=== PATIENT | male | born 1995 | race Caucasian/White ===

== ENCOUNTER → 2019-01-29 07:54 | Outpatient (CLI) | payer OTHER, SELFPAY ==
[2019-01-08 10:47] VITALS: BMI 24.2
--- NOTE | 2019-01-29 07:56 | ECHOD_ITS ---
Reason For Study: DYSPNEA/SOB Procedure This was a 2D Doppler, Color Flow transthoracic echocardiogram. Exam performed in department. Left Ventricle Normal size and thickness. Left ventricular systolic function is normal. No evidence for diastolic dysfunction. The estimated ejection fraction is 60 %. Right Ventricle Normal RV size. Normal systolic function. Atria Normal left atrium. Normal right atrium. No doppler evidence for ASD. Mitral Valve There is no mitral valve stenosis. No mitral valve insufficiency. Tricuspid Valve There is no tricuspid stenosis. Unable to estimate RV systolic pressure due to insufficient tricuspid regurgitant envelope. Trivial eccentric tricuspid valve insufficiency. Aortic Valve Trisinus/trileaflet aortic valve. There is no aortic stenosis. No aortic valve insufficiency. Pulmonic Valve There is no pulmonic valvular stenosis. No pulmonic valve insufficiency. Great Vessels Normal aortic root. Pericardium/Pleural No pericardial effusion. MMode/2D Measurements & Calculations LVIDd: 5.0 cm IVSd: 0.69 cm Ao root diam: 3.1 cm LVIDs: 3.5 cm LVPWd: 0.68 cm RVDd: 4.0 cm FS: 30.8 % LAV(MOD-bp): 33.5 ml LVAd ap4: 37.4 cm2 SV(MOD-sp4): 75.3 ml LAV(MOD-bp) Indexed: 17.8 ml/m2 EDV(MOD-sp4): 127.4 ml LAV(MOD-sp2): 49.2 ml EDV(sp4-el): 130.7 ml LAV(MOD-sp4): 24.9 ml LVAs ap4: 22.1 cm2 ESV(MOD-sp4): 52.1 ml ESV(sp4-el): 53.6 ml EF(MOD-sp4): 59.1 % EF(sp4-el): 59.0 % SV(sp4-el): 77.1 ml LA A4 area: 11.4 cm2 LA dimension(2D): 2.9 cm RA A4 area: 11.5 cm2 Time Measurements MV dec time: 0.15 sec Doppler Measurements & Calculations MV E max fran: 78.3 cm/sec Lat Peak E' Fran: 20.4 cm/sec Med Peak E' Fran: 14.0 cm/sec MV A max fran: 62.7 cm/sec E/E' lat: 3.8 E/E' med: 5.6 MV E/A: 1.2 Ao V2 max: 115.3 cm/sec LV V1 max: 101.6 cm/sec PA V2 max: 103.8 cm/sec Ao max P.3 mmHg LV V1 max P.1 mmHg TR max fran: 236.6 cm/sec TR max P.4 mmHg Interpretation Summary Left ventricular systolic function is normal. No evidence for diastolic dysfunction. The estimated ejection fraction is 60 %. Ordering Physician: Jason Krishnamurthy Referring Physician: Jason Krishnamurthy Performed By: Jennifer Doe RDCS
== END ==
PROVIDERS: Family Provider Nurse Practitioner Family; PCP Nurse Practitioner Family; Referring Provider Specialist; Visit Provider Specialist
DX: R07.9 Chest pain, unspecified (principal); R00.2 Palpitations
CPT/HCPCS: 93306

== ENCOUNTER 2021-06-02 08:53 | Emergency (ER) | payer BC, OTHER, SELFPAY ==
[2021-06-02 08:55] VITALS: BP 129/90; PULSE 101; RESP 16; TEMP 37.2; O2SAT 100; BMI 26.7
--- NOTE | 2021-06-02 09:09 | EX.ED.UPPERE ---
HPI History of Present Illness Chief Complaint: Upper Extremity Injury Detail of Chief Complaint: Redness to left thumb that started yesterday Informant: patient Narrative Narrative: Patient presents to the emergency department with redness and swelling to left thumb. Patient states today he was at work yesterday when he noticed the redness and the swelling. 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 Patient then noticed red streaking up the arm to the axilla. Patient has some soreness into the axilla. He denies fevers or chills or sweats. He is not had this happen before. [facility] Medical History (Updated 06/02/21 @ 11:[address] Luis Salazar DO) ADD (attention deficit disorder) Asthma Chest pain COPD (chronic obstructive pulmonary disease) Erectile dysfunction Palpitations Home Medications clindamycin HCl 300 mg PO 4X/DAY #80 capsule 06/02/21 [Rx Last Taken Unknown] Allergy/AdvReac Type Severity Reaction Status Date / Time bismuth subsalicylate Allergy hives Verified 06/02/21 08:58 [From Pepto-Bismol] Family History Grandfather Myocardial infarction age 27 Sister Asthma Surgical History History of ear surgery (~2011) Status post tendon repair (~2011) Social History (Updated 01/08/19 @ 11:[address] Edmundo Krishnamurthy MD) Smoking Status: Smoker, status unknown how long ago did patient quit smokin months ago alcohol intake: current alcohol intake frequency: a few times a month substance use type: former substance user Date of last use: 2017 caffeine: Yes (occasionally) ROS ROS ED Constitutional Constitutional ED: Reports systems reviewed and no addt'l complaints, except as documented; Denies body ache(s), change in weight or chills Eyes Eyes: Denies acute decrease in peripheral vision, change in vision, double vision or loss of vision ENT ENT ED: Reports none; Denies ear pain, lip swelling, loss taste/smell, neck pain, otalgia or sore throat Cardiovascular Cardiovascular: Reports none; Denies abdominal pain, chest pain with activity, leg edema, lightheadedness, palpitations, rapid heart rate or syncope Respiratory/Chest Respiratory/Chest: Reports none; Denies change in mental status, dry cough, dyspnea, hemoptysis, shortness of breath at rest or shortness of breath with exertion Gastrointestinal Gastrointestinal: Reports none; Denies abdominal pain, change in stool character, diarrhea, hematemesis, hematochezia, melena, rectal bleeding or vomiting Genitourinary Genitourinary ED: Reports none; Denies abdominal discomfort, anuria, dysuria, genital pain or polyuria Musculoskeletal Musculoskeletal: Reports none; Denies arthralgias, back pain, difficulty walking, extremity pain, muscle weakness or myalgias Integumentary Reports none, abscess, rash and other Details: Redness and swelling to left thumb Neurologic Neurologic: Reports none; Denies abnormal gait, confusion, focal weakness, frequent falls, headache(s), loss of vision, numbness, paresthesias, radicular pain, vertigo or weakness Psychiatric Psychiatric: Reports systems reviewed and no addt'l complaints, except as documented and none; Denies behavioral changes, confusion, difficulty concentrating, hallucinations, suicidal ideation, tactile hallucinations or visual hallucinations Endocrine Endocrinology: Denies none, cold intolerance, excessive sweating, fatigue or heat intolerance Hematologic/Lymphatic Hematologic/Lymphatic: Reports none; Denies anemia, easy bleeding or easy bruising Allergic/Immunologic Allergic/Immunologic ED: Denies as per HPI, none, lip swelling, mouth swelling, throat swelling, tongue swelling or hives EXAM Physical Exam Const Vital Signs: 06/02/21 08:55 Temperature 98.9 F Temperature Source Temporal Pulse Rate 101 H Respiratory Rate 16 Blood Pressure 129/90 H Blood Pressure Mean 103 Pulse Ox 100 Oxygen Delivery Method Room Air Positive well nourished and well developed General Appearance ED: well developed and NAD HEENT Reports TM's clear and moist mucous membranes normocephalic and atraumatic; Negative for trauma or tenderness Tympanic Membrane ED: Yes TM's clear Eyes PERRL and EOMs intact bilaterally General Eye ED: Negative for pale conjunctiva or scleral icterus Neck no lymphadenopathy, supple and no JVD General: Negative for tenderness Chest Wall inspection of chest normal and palpation of chest normal Chest: Negative for tenderness Resp normal respiratory effort and clear to auscultation bilaterally Effort and Inspection: Negative for respiratory distress or pain with movement Auscultation: Negative for rhonchi, wheezes or diminished lung sounds Cardio regular rate, regular rhythm, S1 normal heart sound, S2 normal heart sound and no murmurs Peripheral Pulses: pulses 2+ throughout GI normal to inspection, nondistended, normoactive bowel sounds, soft to palpation, non-tender, non-distended and no masses Back/Spine no CVA tenderness and no thoracic nor lumbar tenderness Extremity Extremity Narrative: Evaluation of the left thumb does reveal some diffuse soft tissue swelling over the pulp of the distal phalanx as well as some erythema just proximal to the nail with minimal fluctuance noted. Patient does have some erythema extending over the dorsum of the thumb towards the wrist and then extending to the upper arm towards the axilla consistent with some lymphangitic streaking. He is neurovascular intact distally. General Extremety ED: Negative for edema General Extremity: Negative for edema Neuro oriented x3, CN's II-XII intact bilaterally, no sensory deficits noted and gait normal Sensorium / Orientation: awake, alert, oriented to person, oriented to place and oriented to time Motor Exam: strength 5/5 throughout and strength abnormal Psych mental status grossly normal Skin no rashes or lesions noted and no wounds MDM MDM MDM Narrative Medical decision making narrative: Patient is nontoxic-appearing and has unremarkable labs. I did give him a dose of IV clindamycin on arrival to ER. Case was discussed with orthopedic surgeon on-call Dr. Mobley who asked that patient follow-up with our office for repeat exam tomorrow. I suspect patient likely has development of early paronychia with lymphangitic spread. There is no abscess that is drainable at this time. Patient advised to return if fever, increased redness, swelling, pain, or condition should worsen anyway. Lab Data Attestation: I reviewed the patient's lab results. Discharge Plan Triage Chief Complaint: Upper Extremity Injury ED Provider: Luis Salazar Dx/Rx/DC Orders Clinical Impression: Paronychia, Cellulitis Instructions: ED Cellulitis, ED Paronychia of the Finger or Toe Prescriptions: New clindamycin HCl 150 MG capsule 300 mg PO 4X/DAY Qty: 80 RF: 0 Primary Care Provider: Care Physician,No Primary Referrals: Jorge A Fortune DO [STAFF PHYSICIAN] - 1 Day Care Physician,No Primary [Primary Care Provider] - Disposition Disposition: Home, Self Care
[2021-06-02 09:12] VITALS: BP 129/90; PULSE 101; RESP 16; TEMP 37.2; O2SAT 100
--- NOTE | 2021-06-02 09:40 | RAD_ITS ---
STUDY: X-RAY - LEFT HAND, ATTENTION LEFT THUMB. REASON FOR EXAM: Male, 25 years old. Pain, swelling, ro FB TECHNIQUE: 3 view(s) of the finger were obtained. COMPARISON: None. FINDINGS: Normal metacarpal head. Normal metacarpophalangeal joint. Normal proximal phalanx. Normal distal phalanx. Normal distal interphalangeal joint. Soft tissue swelling. RAD/Finger(s) Min 2 Views IMPRESSION: Soft tissue swelling. No radiopaque foreign body is seen. Electronically Signed: Daoy Lopez MD at 10:12 EDT , Service support ,
[2021-06-02 09:45] LABS: Absolute Lymphocyte Count 1.35 X10^3/uL (0.83-4.51); Absolute Neutrophil Count 4.4 X10^3/uL (2.0-7.7); Basophil# 0.04 X10^3/uL; Basophil% 0.6 % (0-1); Eosinophil# 0.08 X10^3/uL; Eosinophils% 1.1 % (0-5); Hematocrit 41.5 % (40-54); Hemoglobin 14.3 g/dL (13.0-16.5); Lymphocyte # 1.35 X10^3/ul (0.83-4.51); Lymphocyte % 19.3 % (19-41); Mean Corp Hgb Conc 34.5 g/dL (32-36); Mean Corpuscular Hgb 27.5 pg (27.0-32.0); Mean Corpuscular Volume 79.8 fL (80-94); Monocyte% 15.7 % (0-10); NRBC Flagged by Analyzer 0 % (0-5); Neutrophil # 4.41 X10^3/uL (2.7-7.7); Neutrophil % 62.9 % (47-70); Platelet Count 205 K/mm3 (150-450); RBC Distribution Width CV 12.7 % (11.6-14.6)
[2021-06-02 09:58] LABS: Anion Gap 6 (5-15); BUN 18 mg/dL (7-18); BUN/Creat Ratio 16.8 RATIO (10-20); Calcium,Total 9.1 mg/dL (8.5-10.1); Chloride 105 mmol/L (98-107); Creatinine, Serum 1.07 mg/dL (0.70-1.30); EST Glomerular Filtration Rate 90 mL/min (>60); Est Glom Filt Rate - Afr Amer 109 mL/min (>60); Estimated Creatinine Clearance 113.38 ml/min; Glucose 109 mg/dL (74-106); Potassium 3.8 mmol/L (3.5-5.1); Sodium Level 139 mmol/L (136-145)
[2021-06-02 11:08] VITALS: BP 122/80
== END 2021-06-02 11:14 | disposition home or self-care (01) ==
PROVIDERS: Emergency Provider Emergency Medicine
DX: L03.012 Cellulitis of left finger (principal); J44.9 Chronic obstructive pulmonary disease, unspecified; F98.8 Other specified behavioral and emotional disorders with onset usually occurring in childhood and adolescence; Z87.891 Personal history of nicotine dependence
CPT/HCPCS: 73140; 80048; 85025; 96360; 99283

== ENCOUNTER 2022-04-20 11:47 | Emergency (ER) | payer BC, OTHER, SELFPAY ==
[2022-04-20 11:47] VITALS: BP 132/70; PULSE 77; RESP 14; TEMP 36.2; O2SAT 97; BMI 25.1
--- NOTE | 2022-04-20 11:52 | ED.RN ---
resp. notified for ekg
--- NOTE | 2022-04-20 12:01 | RAD_ITS ---
STUDY: X-RAY CHEST REASON FOR EXAM: Male, 26 years old. Acute onset of chest pain. TECHNIQUE: Single AP portable view of the chest. COMPARISON: None. FINDINGS: EKG electrodes are seen. The lungs are clear and expanded. There is no demonstrated pleural abnormality. Normal size heart. Normal mediastinum and adry. Normal visualized pulmonary arteries. Normal visualized aortic arch and descending thoracic aorta. Normal visualized thoracic spine. Normal visualized ribs, clavicles, and shoulders. There is no demonstrated abnormality of the visualized soft tissue structures of the upper abdomen. RAD/Chest 1 View (Portable) IMPRESSION: Normal x-ray examination of the chest. Electronically Signed: Dayo Lopez MD at 12:37 EDT ,
--- NOTE | 2022-04-20 12:01 | EKG12_ITS ---
Test Reason : CP Blood Pressure : / mmHG Vent. Rate : 071 BPM Atrial Rate : 071 BPM P-R Int : 140 ms QRS Dur : 104 ms QT Int : 362 ms P-R-T Axes : 070 064 041 degrees QTc Int : 393 ms Sinus rhythm with marked sinus arrhythmia Incomplete right bundle branch block Borderline ECG Confirmed by VENANCIO PERRY, RON ([id number]), supervising editor news reel [employer] ([id number]) on 04/21/2022 9:42:31 AM Referred By: RU Confirmed By:RON CRAFT MD
--- NOTE | 2022-04-20 12:17 | ED.VIS.CHEST ---
HPI History of Present Illness Chief Complaint: Chest Pain Informant: patient Onset/Context/Timing Onset: Today and Hours Activity at onset: gradual Timing: Continuous Quality: Positive for Aching and Dull Location: Right Parasternal and Left Parasternal Current Severity: Gone Maximum Severity: Mild Worsened By: Nothing Relieved By: Nothing Associated Symptoms: Negative for Nausea, Vomiting, Diaphoresis, Dyspnea, Cough, Fever, Lightheadedness, Acid Reflux or Palpitations Narrative Narrative: 26-year-old male no seen past medical or surgical history. No prior history of DVT or PE and no risk factors. Patient states when [place] today he had some chest discomfort around 9 AM that resolved around 11. Said his lips got numb and he felt lightheaded. Says hands were shaking at the time. He denies any prior history of similar events. Denies feeling anxious. No history again of DVT or PE. No recent travel, surgery or immobilization. No hemoptysis. Pain was not pleuritic. No calf or leg pain. No sign of family history of cardiac disease or pneumothoraces. He is feeling improved currently. Prior Similar Symptoms: No Recent Illness/Hospitalization: No CVD Risk Factors: Negative for Hypertension, Diabetes, Hypercholesterolemia, Family History 1' </=55 or Smoking PE Risk Factors: Negative for Recent Travel/Surgery, Recent Immobilization, Prior DVT or PE, Cancer or OCP + Smoking + >/=35 TAD Risk Factors: Negative for Marfan's Syndrome or Hypertension [facility] Medical History (Updated 04/20/22 @ 12:[address] Larry Jaime MD) ADD (attention deficit disorder) Asthma Chest pain COPD (chronic obstructive pulmonary disease) Erectile dysfunction Palpitations Home Medications clindamycin HCl 150 mg capsule 300 mg PO 4X/DAY #80 CAPSULES 06/02/21 [Rx Last Taken Unknown] Allergy/AdvReac Type Severity Reaction Status Date / Time bismuth subsalicylate Allergy hives Verified 06/02/21 08:58 [From Pepto-Bismol] Family History Grandfather Myocardial infarction age 27 Sister Asthma Surgical History History of ear surgery (~2011) Status post tendon repair (~2011) Social History Smoking Status: Never smoker how long ago did patient quit smokin months ago alcohol intake: current alcohol intake frequency: a few times a month substance use type: former substance user Date of last use: 2017 caffeine: Yes (occasionally) ROS ROS ED ROS Narrative Chest discomfort resolved. Review of Systems ROS Unobtainable: Denies due to encephalopathy Constitutional Constitutional ED: Denies chills or fever(s) Eyes Eyes: Reports none ENT ENT ED: Denies ear pain Cardiovascular Cardiovascular: Reports as per HPI and chest pain; Denies palpitations or racing heartbeat Respiratory/Chest Respiratory/Chest: Denies cough or dyspnea Gastrointestinal Gastrointestinal: Denies abdominal pain, constipation, diarrhea, melena, nausea or vomiting Genitourinary Genitourinary ED: Denies dysuria or hematuria Musculoskeletal Musculoskeletal: Denies arthralgias Integumentary Denies abscess Neurologic Neurologic: Denies headache(s) Psychiatric Psychiatric: Denies anxiety Endocrine Endocrinology: Denies cold intolerance Hematologic/Lymphatic Hematologic/Lymphatic: Denies easy bleeding Allergic/Immunologic Allergic/Immunologic ED: Denies mouth swelling EXAM Physical Exam Narrative Exam Narrative: 26-year-old male no acute distress vital signs stable afebrile. Pulse ox 97% on room air no signs hypoxia. H EENT exam normal. Moist extremities. Neck nontender. No JVD. No lymphadenopathy. Lungs clear to auscultation bilaterally. Heart regular rate and rhythm rate about 70 no murmur. Chest were nontender. Abdomen soft nontender. No edema or cords. Equal symmetrical radial pulses. 5-5 screed operator strength. Dorsi plantarflexion intact. Back nontender. Neurologic exam normal. Const Vital Signs: 04/20/22 11:47 04/20/22 11:53 Temperature 97.1 F L Temperature Source Temporal Pulse Rate 77 Respiratory Rate 14 Respiratory Effort Normal Blood Pressure 132/70 H Blood Pressure Mean 90 Pulse Ox 97 Oxygen Delivery Method Room Air Positive well nourished and well developed; Negative for obese, cachectic, contractures or unkempt General Appearance ED: well developed and NAD; Negative for unkempt, cachectic, contractures or pallor Nutritional Appearance: Negative for cachectic or obese HEENT Reports moist mucous membranes normocephalic and atraumatic; Negative for trauma or tenderness Eyes PERRL and EOMs intact bilaterally General Eye ED: Negative for pale conjunctiva or scleral icterus Neck no lymphadenopathy, supple and no JVD General: Negative for tenderness Chest Wall inspection of chest normal and palpation of chest normal Resp normal respiratory effort and clear to auscultation bilaterally Effort and Inspection: Negative for respiratory distress or pain with movement Auscultation: Negative for rales, rhonchi, wheezes or diminished lung sounds Cardio regular rate, regular rhythm, S1 normal heart sound, S2 normal heart sound and no murmurs Rate: Negative for bradycardia or tachycardic Rhythm: Negative for abnormal rhythm Peripheral Pulses: pulses 2+ throughout GI normal to inspection, nondistended, normoactive bowel sounds, soft to palpation, non-tender, non-distended and no masses Auscultation: Negative for hyperactive bowel sounds Palpation: Negative for splenomegaly Rectal Exam: Negative for heme negative stool Back/Spine no CVA tenderness and no thoracic nor lumbar tenderness General Back: Negative for CVA tenderness Cervical Spine: Negative for cervical spine tenderness Extremity normal to inspection General Extremety ED: Negative for edema, pulses abnormal or tenderness General Extremity: Negative for edema or pulses abnormal Neuro oriented x3, CN's II-XII intact bilaterally and no sensory deficits noted Sensorium / Orientation: awake, alert, oriented to person, oriented to place and oriented to time; Negative for confused, lethargic or stuporous Motor Exam: strength 5/5 throughout Psych mental status grossly normal Appearance: Negative for unkempt Attitude: No agitated Mood & Affect: Negative for depressed Skin no rashes or lesions noted and no wounds General Skin Exam: Negative for jaundice or pallor Rashes: No rashes noted Trauma: Negative for abrasion or laceration Heart Score History: Slightly/Non-Suspicious ECG: Normal Age: </= 45 years Risk Factors: No Risk Factors Score: 0 MDM MDM MDM Narrative Medical decision making narrative: 46-year-old male with atypical nonreproducible chest discomfort. No recent exertional symptoms. No cardiac risk factors. No risk factors for DVT or PE. Clinically does not sound like a dissection. His symptoms have resolved. Radiography Chest X-Ray - ED: 1 View, Heart, Lungs, Mediastinum, Bony Structures and No Acute Disease Diagnostic Testing: Chest x-ray, portable, single view interpreted myself shows no acute abnormality. Normal cardiac silhouette. Normal mediastinum. Normal lung minaya. No pneumothorax. No dissection. No aneurysm noted. Rhythm Strip Rhythm Strip: Sinus Rhythm Rate: 71 Ectopy: None EKG Initial EKG: Attestation: I personally reviewed and interpreted this EKG as follows: Interpretation: Sinus Rhythm, No Acute Injury Pattern, Sinus Bradycardia and Sinus Tachycardia Comments: Normal sinus rhythm rate of 71 no acute signs of ID or ischemia. Discharge Plan Triage Chief Complaint: Chest Pain ED Provider: Larry Jaime Dx/Rx/DC Orders Clinical Impression: Chest pain Instructions: ED Chest Pain, Uncertain Cause Prescriptions: No Action clindamycin HCl 150 MG capsule 300 mg PO 4X/DAY Qty: 80 0RF Primary Care Provider: Sudhakar Eng Referrals: Sudhakar Eng MD [Primary Care Provider] - 3-5 Days if not improving Activity Restrictions/Additional Instructions: Your EKG and chest x-ray were normal. Your physical exam is normal. Follow-up with your doctor if not improving. Return if worse. Disposition Disposition: Home, Self Care
== END 2022-04-20 12:53 | disposition home or self-care (01) ==
PROVIDERS: Emergency Provider Emergency Medicine; PCP Family Medicine; Visit Provider Emergency Medicine
DX: R07.9 Chest pain, unspecified (principal); J44.9 Chronic obstructive pulmonary disease, unspecified; F98.8 Other specified behavioral and emotional disorders with onset usually occurring in childhood and adolescence; Z87.891 Personal history of nicotine dependence
CPT/HCPCS: 71045; 93005; 99282

== ENCOUNTER 2022-04-30 00:26 | Emergency (ER) | payer BC, OTHER, SELFPAY ==
[2022-04-30 00:27] VITALS: BP 127/100; PULSE 91; RESP 16; TEMP 36.9; O2SAT 99; BMI 25.3
--- NOTE | 2022-04-30 02:53 | EX.ED.UPPERE ---
HPI History of Present Illness Chief Complaint: Laceration Informant: patient Occured/Mechanism Comment: Accidentally incised while using an angle double end production grinder that jumped back and hit him in the finger Onset/Context/Timing Context: Sudden Onset Timing: Continuous Quality of Pain: - (Sore) Location: Left index finger Current Severity: Mild Maximum Severity: Mild Worsened by: Palpation Relieved by: Leaving alone Associated Symptoms Associated Symptoms: Negative for Parasthesia, Weakness or Loss of Funtion Narrative Narrative: Using an angle double end production grinder at home with a cut off blade that jumped and accidentally cut him in the left index finger. [id number]. Has a history of a tendon laceration that required surgical repair on a finger of his right hand remotely and since this was right over top of the joint he was concerned that he may have hit the tendon. Tetanus Immunization: 5-10 years [facility] Medical History (Updated 04/30/22 @ 02:[address] Steven Singh MD) ADD (attention deficit disorder) Asthma Chest pain COPD (chronic obstructive pulmonary disease) Erectile dysfunction Palpitations Home Medications NK 04/30/22 [History Last Taken Unknown] Allergy/AdvReac Type Severity Reaction Status Date / Time bismuth subsalicylate Allergy hives Verified 04/30/22 00:31 [From Pepto-Bismol] Family History Grandfather Myocardial infarction age 27 Sister Asthma Surgical History History of ear surgery (~2011) Status post tendon repair (~2011) Social History Smoking Status: Never smoker how long ago did patient quit smokin months ago alcohol intake: current alcohol intake frequency: a few times a month substance use type: former substance user Date of last use: 2017 caffeine: Yes (occasionally) ROS ROS ED Constitutional Constitutional ED: Denies chills or fever(s) Musculoskeletal Musculoskeletal: Reports extremity pain; Denies neck pain Integumentary Reports wounds; Denies Abrasions or rash Neurologic Neurologic: Denies paresthesias or weakness EXAM Physical Exam Const Vital Signs: 04/30/22 00:27 Temperature 98.4 F Temperature Source Oral Pulse Rate 91 Respiratory Rate 16 Blood Pressure 127/100 H Blood Pressure Mean 109 Pulse Ox 99 Oxygen Delivery Method Room Air Positive well nourished and well developed General Appearance ED: well developed and NAD Neck full ROM and supple Back/Spine normal ROM and normal to inspection Extremity Extremity Narrative: Superficial tenderness left index finger over the PIPJ where there is a laceration, no bony tenderness. Full range of motion extensor mechanism fully intact without significant pain. No other injuries. Neuro oriented x3, no focal motor deficits and no sensory deficits noted Sensorium / Orientation: alert Psych mental status grossly normal and thought process normal Skin Skin Narrative: Laceration with some locally singed tissue full-thickness over the PIPJ of the left index finger, 2 cm. No gross contamination. Rashes: no rashes MDM MDM MDM Narrative Medical decision making narrative: Laceration was cleansed thoroughly and repaired, there is no gross contamination just some singed tissue. Patient states he was wearing gloves at the time and the ankle content writer went through the glove got him in the finger. After anesthetizing it and cleansing it, there was no bleeding present while I explored the interior of the wound. There was a small piece of white subcutaneous tissue that the patient saw and thought it was the tendon. With ranging his finger while inspecting the open wound, it does not move to suggest this is the tendon and I do not think he went deep enough to hit a central slip. The laceration is longitudinal right in the middle. He was reassured, repaired, topical antibiotics placed along with a dressing, and we discussed wound care. Procedures Lacerations Left index finger: Length: 2 cm Depth: Sub Q Shape: Linear Prep: Sterile Conditions and Chlorhexadine Laceration repair: Lidocaine (2 cc, 1%) and Local Irrigated (ml): 60 Number of Sutures/Toney: 3 Suture Information: Ethilon, Simple (#2), Horizontal and Mattress (#1) Discharge Plan Triage Chief Complaint: Laceration ED Provider: Steven Singh Dx/Rx/DC Orders Clinical Impression: Laceration of left index finger Instructions: ED Laceration, Hand: All Closures Prescriptions: No Action NK Stand Alone Forms: Work Status Form Primary Care Provider: Sudhakar Eng Referrals: Sudhakar Eng MD [Primary Care Provider] - 10 Day for suture removal Disposition Disposition: Home, Self Care
[2022-04-30 03:13] VITALS: BP 136/74; PULSE 80; RESP 17; O2SAT 98
[2022-04-30] MEDS: Lidocaine 1% (20 ml mdv) 20 ML Vial INFILT (03:19)
== END 2022-04-30 03:19 | disposition home or self-care (01) ==
PROVIDERS: Emergency Provider Emergency Medicine; PCP Family Medicine; Visit Provider Emergency Medicine
DX: S61.211A Laceration without foreign body of left index finger without damage to nail, initial encounter (principal); J44.9 Chronic obstructive pulmonary disease, unspecified; W26.8XXA Contact with other sharp object(s), not elsewhere classified, initial encounter; Y92.019 Unspecified place in single-family (private) house as the place of occurrence of the external cause
CPT/HCPCS: 12001; 99283

== ENCOUNTER 2022-08-18 15:53 | Emergency (ER) | payer OTHER, SELFPAY ==
[2022-08-18 15:54] VITALS: BP 157/99; PULSE 102; RESP 16; TEMP 36.4; O2SAT 98; BMI 25.1
--- NOTE | 2022-08-18 15:56 | ED.RN ---
Per Yury Iniguez, Dehydrogenation Supervisor pt does not need drug screen.
--- NOTE | 2022-08-18 16:15 | RAD_ITS ---
INDICATION: trauma EXAMINATION/TECHNIQUE: X-RAY - LEFT XR Hand Min 3 Views 4 VIEWS COMPARISON: None. FINDINGS: SOFT TISSUES: Soft tissue swelling about the fifth PIP joint. 1 mm radiodense foreign body in the soft tissues lateral to the fifth PIP joint. BONES/JOINTS: Comminuted intra-articular fracture of the fifth middle phalanx at the PIP joint. Overall alignment near anatomic. . RAD/Hand Min 3 Views IMPRESSION: Comminuted intra-articular fracture at the fifth PIP joint. Small adjacent radiodense foreign body. Electronically Signed: Zenon Wolf MD at 16:36 EST ,
--- NOTE | 2022-08-18 17:47 | EX.ED.UPPERE ---
HPI History of Present Illness Chief Complaint: Upper Extremity Injury Informant: patient Onset/Context/Timing Onset: Today Narrative Narrative: Left hand dominant male presents for left pinky injury occurring at work. Hypertension sprain release injuring his pinky finger. Happened at 3:30 PM. Tetanus more than years ago. No antibiotic allergies. States there is some numbness to his pinky. He cannot bend his finger. Remote tendon injury right middle finger extensor aspect more than 10 years ago requiring surgical repair at that time. Reported in the local area. Unaware home. No anticoagulation medicines. Bleeding controlled. Tetanus Immunization: 5-10 years [facility] Medical History (Updated 08/18/22 @ 20:[address] Kenneth Lama DO) ADD (attention deficit disorder) Asthma Chest pain COPD (chronic obstructive pulmonary disease) Erectile dysfunction Palpitations Home Medications cephalexin 500 mg capsule 500 mg PO Q6 #40 caps 08/18/22 [Rx Last Taken Unknown] hydrocodone-acetaminophen 5-325mg 5mg-325mg 1 tab PO Q6H PRN pain 3 days #12 tabs 08/18/22 [Rx Last Taken Unknown] Allergy/AdvReac Type Severity Reaction Status Date / Time bismuth subsalicylate Allergy hives Verified 08/18/22 15:56 [From Pepto-Bismol] Family History Grandfather Myocardial infarction age 27 Sister Asthma Surgical History History of ear surgery (~2011) Status post tendon repair (~2011) Social History Smoking Status: Never smoker how long ago did patient quit smokin months ago alcohol intake: current alcohol intake frequency: a few times a month substance use type: former substance user Date of last use: 2017 caffeine: Yes (occasionally) ROS ROS ED Constitutional Constitutional ED: Denies chills, fever(s) or sweats Eyes Eyes: Denies change in vision ENT ENT ED: Denies dysphagia or sore throat Cardiovascular Cardiovascular: Denies chest pain, leg edema, palpitations or racing heartbeat Respiratory/Chest Respiratory/Chest: Denies cough, dyspnea or dyspnea on exertion Gastrointestinal Gastrointestinal: Denies abdominal pain, diarrhea, nausea or vomiting Genitourinary Genitourinary ED: Denies dysuria, hematuria or urinary frequency Musculoskeletal Musculoskeletal: Reports extremity pain; Denies back pain or neck pain Integumentary Reports wounds; Denies rash Neurologic Neurologic: Denies headache(s), paresthesias or weakness EXAM Physical Exam Const Vital Signs: 08/18/22 15:54 Temperature 97.6 F L Temperature Source Temporal Pulse Rate 102 H Respiratory Rate 16 Blood Pressure 157/99 H Blood Pressure Mean 118 Pulse Ox 98 Oxygen Delivery Method Room Air Positive well nourished and well developed General Appearance ED: well developed and NAD HEENT Reports moist mucous membranes normocephalic and atraumatic Eyes PERRL, EOMs intact bilaterally and conjunctivae normal General Eye ED: Yes normal appearance of both eyes Neck no lymphadenopathy and supple General: Negative for tenderness Chest Wall Chest: Negative for tenderness Resp normal respiratory effort and normal air movement Effort and Inspection: symmetric chest movement; Negative for respiratory distress Cardio regular rate, regular rhythm and no murmurs Peripheral Pulses: pulses 2+ throughout GI normal to inspection, nondistended, normoactive bowel sounds and non-tender Palpation: Negative for guarding or rebound tenderness present Back/Spine no CVA tenderness and no thoracic nor lumbar tenderness Extremity Extremity Narrative: Left hand dark debris around the hands. Pinky finger there is a volar laceration radial aspect PIP down to the proximal phalanx. No active bleeding. Patient unable to flex at the PIP or the DIP joint. No deformities. Ring finger noted small abrasions distal phalanx proximal to the nailbed. No active bleeding or deformities. General Extremety ED: Yes tenderness; Negative for edema General Extremity: Negative for edema Neuro oriented x3 and no sensory deficits noted Sensorium / Orientation: awake and alert Skin Skin Narrative: See above MDM MDM MDM Narrative Medical decision making narrative: 4 view x-rays of left hand was obtained through triage this was reviewed by myself read by radiology concerns for comminuted PIP fracture of the pinky joint. Ring was noted on the ring finger which was removed on my exam. Exam concerns for open fracture with both superficial and deep profundus tendon lacerations of the pinky. This is his dominant hand. IV placed with labs he is given Ancef and tetanus updated. 1753: I spoke with our on-call orthopedist Dr. Glasgow, he does not do flexor tendon repairs. He recommended transfer to hand specialist. 1900: I spoke with hand surgeon Dr. Lombardo at [facility] discussed fracture and tendon concerns and findings. She reports can be fixed within 6 days since okay for outpatient follow-up. There is good cap refills. Discussed loss of two-point sensation distal radial aspect, comminuted fracture into intra-articular lobe with concern for flexor tendon laceration. This was copiously washed the wound, antibiotics pain medicines with splinted dorsally in a flexed position as discussed. Appropriate work restrictions were given. Procedure note: Laceration repair. Verbal consent. Normal sterile conditions. Wound was closely flushed cleansed with mixed Betadine normal saline. Total 1 L was used. Clean the wound, there was a capillary bleed on the radial aspect of the wound. Turnicot was used to help with hemostasis. Loose sutures x2 initially after turnicot of 5-0 simple interrupted 1 over the capillary bleed the other 1 medial aspect of the wound. Upon removal of the turnicot there was brisk bleeding noted, another turnicot was placed, additional 500 simple suture was placed over the capillary artery stitch down with good hemostasis after turnicot was removed. Finger dressing. AlumaFoam splint placed dorsally in a flexed position. Patient Toller procedure well. Radiography Diagnostic Testing: Clinical Impression(s) from Imaging Studies Hand X-Ray 08/18/22 16:15 IMPRESSION: Comminuted intra-articular fracture at the fifth PIP joint. Small adjacent radiodense foreign body. Electronically Signed: Zenon Wolf MD at 16:36 EST , Discharge Plan Triage Chief Complaint: Upper Extremity Injury ED Provider: Kenneth Lama Dx/Rx/DC Orders Clinical Impression: Open fracture of finger of left hand, Flexor tendon laceration, finger, open wound Instructions: Treating Flexor Tendon Lacerations, ED Fracture, Finger, Open Prescriptions: New hydrocodone-acetaminophen 5-325 mg tablet 1 tab PO Q6H PRN (Reason: pain) 3 Days Qty: 12 0RF cephalexin [cephalexin] 500 mg capsule 500 mg PO Q6 Qty: 40 0RF Primary Care Provider: Sudhakar Eng Referrals: Sudhakar Eng MD [Primary Care Provider] - Activity Restrictions/Additional Instructions: Open left pinky fracture with concerning flexor tendon laceration of same finger. Comminuted intra-articular fracture at the PIP joint. Two-point sensation loss distal to the wound on the radial aspect of the pinky. Take antibiotic as prescribed. Maintain splint in that flexed position. Follow-up with Dr. Lombardo. Call on Sunday. Office will also reach out to you. Dr. Lombardo [phone] Disposition Disposition: Home, Self Care
[2022-08-18 17:59] LABS: Absolute Lymphocyte Count 1.46 X10^3/uL (0.83-4.51); Absolute Neutrophil Count 4.9 X10^3/uL (2.0-7.7); Basophil# 0.05 X10^3/uL; Basophil% 0.7 % (0-1); Eosinophil# 0.11 X10^3/uL; Eosinophils% 1.5 % (0-5); Hematocrit 40.5 % (40-54); Hemoglobin 13.9 g/dL (13.0-16.5); Lymphocyte # 1.46 X10^3/ul (0.83-4.51); Lymphocyte % 19.5 % (19-41); Mean Corp Hgb Conc 34.3 g/dL (32-36); Mean Corpuscular Hgb 27.3 pg (27.0-32.0); Mean Corpuscular Volume 79.6 fL (80-94); Mean Platelet Vol. 10.2 fl (6.2-12.0); Monocyte# 0.95 X10^3/uL; Monocyte% 12.7 % (0-10); NRBC Flagged by Analyzer 0 % (0-5); Neutrophil % 65.3 % (47-70); Platelet Count 191 K/mm3 (150-450); RBC Distribution Width CV 12.1 % (11.6-14.6); RBC Distribution Width SD 34.7 fl (35.1-43.9); Red Blood Count 5.09 M/mm3 (4.6-6.2); White Blood Count 7.5 K/mm3 (4.4-11.0)
[2022-08-18] MEDS: Cefazolin 1 GM/50 ML BAG IV (18:03)
[2022-08-18] MEDS: Diphth,Pertuss(Acell),Tet Vac 0.5 ML Vial IM (18:03)
[2022-08-18 18:11] LABS: Anion Gap 3 (5-15); BUN 16 mg/dL (7-18); BUN/Creat Ratio 15.5 RATIO (10-20); Chloride 107 mmol/L (98-107); Creatinine, Serum 1.03 mg/dL (0.70-1.30); EST Glomerular Filtration Rate 93 mL/min (>60); Est Glom Filt Rate - Afr Amer 112 mL/min (>60); Estimated Creatinine Clearance 116.77 ml/min; Glucose 97 mg/dL (74-106); Potassium 3.8 mmol/L (3.5-5.1); Sodium Level 140 mmol/L (136-145)
[2022-08-18] MEDS: Morphine 4 MG/ML Syringe IV (18:27)
[2022-08-18] MEDS: Lidocaine 1% (20 ml mdv) 20 ML Vial INFILT (19:31)
== END 2022-08-18 20:36 | disposition home or self-care (01) ==
PROVIDERS: Emergency Provider Emergency Medicine; PCP Family Medicine; Visit Provider Emergency Medicine
DX: S62.617B Displaced fracture of proximal phalanx of left little finger, initial encounter for open fracture (principal); J44.9 Chronic obstructive pulmonary disease, unspecified; S66.127A Laceration of flexor muscle, fascia and tendon of left little finger at wrist and hand level, initial encounter; X58.XXXA Exposure to other specified factors, initial encounter; Y99.0 Civilian activity done for income or pay
CPT/HCPCS: 12001; 73130; 80048; 85025; 90715; 96365; 96375; 99284; A4216

== ENCOUNTER 2023-01-17 16:30 | Outpatient (RCR) | payer OTHER, SELFPAY ==
--- NOTE | 2022-09-21 07:47 | HP.OTEVAL ---
Patient's Visit Information MILDRED LINDA MIKE is a 26 year old M, referred to Occupational Therapy by ASHLEY EDMONDSON, with a diagnosis of left SF phalanx fx with FDP.FDS zone 2-5 tendon laceration. Date of Evaluation: 09/20/22 Occupational Therapist: Tiny Caal, TATIANA/Jackeline, CHT - Subjective This 26 year old male was seen for OT eval with dx of left small finger volar laceration, left small finger FDS laceration zone II, left small finger FDP laceration zone II , left small finger radial nerve digital nerve laceration- open comminuted intra-articular fx of left small finger Middle phalanx. DOI 08/18/22 and sx repair on 08/24/23. Pt states some sensation on radial side of his LF. 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 pt is left handed- pt would like to return to his PLOF. - Pain left hand 3 - ROM Wrist: right 75/60 left 65/50 MP: left SF 0/60 PIP: left SF -40/45 DIP: left SF 0 ROM Comments: right WNL. pt incision clean and dry volar stitches intact - Strength Rubber Stamp Die Inspector: right 130# left NT Lateral Pinch: right 14 left NT Tripod Pinch: right 12# left NT Strength Comments: will test left urogynecology physician/pinch strength at later date - Edema PIP: right SF 6.0 left 7.0 - Sensation Sensation Comments: radial side of left SF tingling feeling tip of SF denies deficits - Quick DASH-Disab of Arm,Shoulder& Hand Quick DASH Score: 70.0000 - Goals Goal:100% adherence to protocol: Yes Comment: Flexor tendon zone 2-5 protocol Goal:Daily scar massage when approriate: Yes Goal:ROM equal to unaffected hand: Yes Goal:Rubber Stamp Die Inspector/Pinch strength at least 75% of unaffected hand: Yes Comment: not to initiate until week [address]Eva indicates Goal:No pain with affected hand use: Yes Goal:PIP Circumferences equal to unaffected hand: Yes Goal:Full use of affected hand in daily activities including: Yes Goal:Decrease scar hypersensitivity: Yes - Rehabilitation General Assessment: pt arrives 3 weeks and 6 days s/p from FDP,FDS repair zone 2-5, Volar plate arthroplasty (pinning PIP in flexion). PT arrives with pin removed and orthosis cut down to hand based. pt demo with a decrease in ROM, pain and newly healing structures limiting use of left UE with ADLs and IADLs. pt would benefit from skilled OT services 2-3 x week for 6-8 weeks. Today therapist review 3 fist positions ex, wrist ROM, scar mtg and cleaning of hand and orthosis. therapist also ed. pt on protocol guidelines pt demo understanding and agree to POC. Rehabilitation Potential: Good - Anticipated Interventions A/AAROM/PROM, Strengthening, Edema Control, Scar Care, Triggerpoint Release, Sensory Retraining, Wound Care, Modalities, Orthoses, Ergonomic Education, Fine Motor Coord/Tushar, Neuro Reeducation, Education re assistive Equipment, Education re Diagnosis, Home Program - Visit Plan Frequency: 2-3x /Week Duration: 4-6 Weeks General Plan: Week 4 s/p hand based splint initiate active exercises in all 3 fist positions. Week 5 s/p d/c splint Add blocking exercises but No resistance until week 8 post-op. TEXT: Thank you for the opportunity to evaluate your patient. For Medicare and Medicare HMO plans, please review the plan of care and approve it. It will need to be FAXED BACK to us at [phone] for Medicare purposes. Please let me know if there are questions or concerns regarding this plan of care. Physician Signature: Date:
--- NOTE | 2022-10-05 11:27 | HP.OTREVAL ---
ASLHEY EDMONDSON, It has been my pleasure to treat MILDRED MIKE over the last 6 visits for left SF phalanx fx with FDP.FDS zone 2-5 tendon laceration. Please see the progress note below for an update on the occupational therapy plan of care! Subjective: pt arrives 6 weeks s/p from Flexor tendon repair with fx of proximal fx. pt states he feels work is good-. feeling like his hand is moving well. Objective/Function: left PIP -45/60* prior to therapy today following -40/ 65*. left MCP 0/95*. pt demo with scar adhesions FDP and FDS. therapy is performing blocking /reverse blocking and scar mtg to gain ROM with min. results in ROM. therapist ed. pt on need to perform ex. often even when at work. as well as importance of hook fist. pt demo understanding Plan Frequency: 2-3x /Week Duration: 4-6 Weeks Visits in this POC: 9 OT visit C9 approval for TE ([id number]), TA ([id number]) NR ([id number]) MT ([id number]) Plan: Week 5 s/p d/c splint Add blocking exercises but. No resistance until week 8 post-op. Goals - Goals Patient Goals: Regain Mobility, Use Hand/Wrist/Arm Normally Again, Be More Independent in ADLS Goal:100% adherence to protocol: Yes Goal:Daily scar massage when approriate: Yes Goal:ROM equal to unaffected hand: Yes Goal:Product Assurance Engineer/Pinch strength at least 75% of unaffected hand: Yes Goal:No pain with affected hand use: Yes Goal:PIP Circumferences equal to unaffected hand: Yes Goal:Full use of affected hand in daily activities including: Yes Goal:Decrease scar hypersensitivity: Yes Anticipated Interventions Anticipated Interventions: A/AAROM/PROM, Strengthening, Edema Control, Scar Care, Triggerpoint Release, Sensory Retraining, Wound Care, Modalities, Orthoses, Ergonomic Education, Fine Motor Coord/Tushar, Neuro Reeducation, Education re assistive Equipment, Education re Diagnosis, Home Program Please do not hesitate to contact me at [phone] by phone or if you have questions or concerns regarding this new plan of care! Sincerely, Tiny Caal, OTR/L, CHT
--- NOTE | 2023-03-08 13:41 | HP.OT.NRP ---
Patient Information Patient Information: MILDRED MIKE was seen in my office for initial evaluation on 09/20/22. The following Plan of Care was established for this patient: POC Established Initial Frequency: 2-3x /Week Initial Duration: 4-6 Weeks Plan: AROM following tenolysis protocol pt has place and hold PROM and AROM ex Anticipated Interventions Anticipated Interventions: A/AAROM/PROM, Strengthening, Edema Control, Scar Care, Triggerpoint Release, Sensory Retraining, Wound Care, Modalities, Orthoses, Ergonomic Education, Fine Motor Coord/Tushar, Neuro Reeducation, Education re assistive Equipment, Education re Diagnosis and Home Program Last Seen Last Seen: This patient was last seen in our office 01/17/23. Pertinent comments regarding their Occupational therapy will appear below: pt was seen for 10 OT sessions following finger sx. at this time pt is d/c due to end of c9 POC. At this point I will be discontinuing this patient from occupational therapy. I would be happy to see this patient again in the future if found appropriate by the physician. Thank you! Tiny Caal, OTR/L, CHT
== END 2023-01-17 19:00 | disposition home or self-care (01) ==
LOC: OT 16:30
PROVIDERS: PCP Family Medicine
DX: S61.22 Laceration with foreign body of finger without damage to nail (principal); S62.627D Displaced fracture of middle phalanx of left little finger, subsequent encounter for fracture with routine healing; S64.40XD Injury of digital nerve of unspecified finger, subsequent encounter; S56.129D Laceration of flexor muscle, fascia and tendon of unspecified finger at forearm level, subsequent encounter
CPT/HCPCS: 97110; 97140; 97166; 97530; 97760

== ENCOUNTER 2023-06-19 12:00 | Outpatient (RCR) | payer OTHER, SELFPAY ==
--- NOTE | 2023-06-15 12:10 | HP.OTEVAL_ITS ---
Patient's Visit Information Visit Information Visit Information: MILDRED MIKE is a 27 year old M, referred to Occupational Therapy by ASHLEY EDMONDOSN, with a diagnosis of left LF Amputation. Date of Evaluation: 06/13/23 Occupational Therapist: Tiny Caal, OTR/Jackeline, CHT Subjective Subjective: This 27 year old male was seen for OT eval with dx of left LF amputation Sx DOS 05/23/23 (pt was 40 min late for apt- had the wrong time) pt states he is very happy with having sx- denies pain- no swelling and is using hand for all ADLs pt currently off work pt is left handed pt states he is performing all his ADLS and IADLs at this time- states hardest part was to wipe change off a table into his other hand- due to space he milled the change. ROM MP: left RF 80 PIP: left RF 0/105 ROM Comments: pt demo with tight composite fist pt has 4 remaining stitches left at this time- Strength Welding Machine Setter: right 165# left 110# Lateral Pinch: right 28# left 26# Tripod Pinch: right 22# left 24# Strength Comments: pt demo with full composite fist Sensation Sensation Comments: denies sensation issues states feels great Quick DASH-Disab of Arm,Shoulder& Hand Quick DASH Score: 28.5700 Goals Goal:Daily scar massage when approriate: Yes Goal:Full use of affected hand in daily activities including work: Yes Goal:Decrease scar hypersensitivity: Yes Rehabilitation General Assessment: pt arrives to session demo good healing from a left LF amputation. Pt demo need for skilled OT services 2-3x week for 4 weeks to ed. pt on adaptive ashley. desensitization and scar mtg. Pt agreeable to POC. Rehabilitation Potential: Good Anticipated Interventions Anticipated Interventions: A/AAROM/PROM, Strengthening, Scar Care, Triggerpoint Release, Desensitization, Modalities, Orthoses, Joint Protection/Energy Conservation, Education re assistive Equipment, Education re Diagnosis and Home Program Visit Plan Frequency: 2-3x /Week Duration: 4-6 Weeks TEXT: Thank you for the opportunity to evaluate your patient. For Medicare and Medicare HMO plans, please review the plan of care and approve it. It will need to be FAXED BACK to us at [phone] for Medicare purposes. Please let me know if there are questions or concerns regarding this plan of care. Physician Signature: Date:
--- NOTE | 2023-08-06 09:43 | HP.OT.NRP ---
Patient Information Patient Information: MILDRED MIKE was seen in my office for initial evaluation on 06/13/23. The following Plan of Care was established for this patient: POC Established Initial Frequency: 2-3x /Week Initial Duration: 4-6 Weeks Plan: Continue POC: 2-3x week (4-6x wee) Anticipated Interventions Anticipated Interventions: A/AAROM/PROM, Strengthening, Scar Care, Triggerpoint Release, Desensitization, Modalities, Orthoses, Joint Protection/Energy Conservation, Education re assistive Equipment, Education re Diagnosis and Home Program Last Seen Last Seen: This patient was last seen in our office 06/19/23. Pertinent comments regarding their Occupational therapy will appear below: pt was only seen for 2 OT session and was doing well at his last session. pt has not returned at this time due to reports of IND with home IADLs and work tasks. pt d/c. At this point I will be discontinuing this patient from occupational therapy. I would be happy to see this patient again in the future if found appropriate by the physician. Thank you! Tiny Caal, OTR/L, CHT
== END 2023-06-19 19:00 | disposition home or self-care (01) ==
LOC: OT 12:00
PROVIDERS: PCP Family Medicine
DX: Z89.022 Acquired absence of left finger(s) (principal)
CPT/HCPCS: 97110; 97165; 97166

== ENCOUNTER → 2025-04-03 | Outpatient (CLI) | payer OTHER, SELFPAY ==
--- OUTSIDE RECORDS SUMMARY | 2025-04-03 09:20 | XMS RPT_ITS | CCD ---
Author Organization [facility] Care Team Providers Care Therapeutic Strategy Lead Name Role Phone Jimbo Hines Unavailable LAUREEN LOMBARDO Attending Unavailable LOMBARDO, LAUREEN Referring Unavailable LOMBARDO, LAUREEN Attending Unavailable LOMBARDO, LAUREEN Referring Unavailable LOMBARDO, LAUREEN Attending Unavailable LOMBARDO, LAUREEN Referring Unavailable LOMBARDO, LAUREEN Attending Unavailable Jimbo Hines MD Unavailable Sudhakar Eng Primary Care Unavailable TERESA, DMITRI Attending Unavailable TERESA, DMITRI Referring Unavailable Velasquez, Sudhakar Primary Care Unavailable TERESA, DMITRI Attending Unavailable TERESA, DMITRI Referring Unavailable Kenneth Lama Attending Unavailable Sudhakar Eng Primary Care Unavailable LOMBARDO, LAUREEN Admitting Unavailable LOMBARDO, LAUREEN Attending Unavailable ESTERLE, JASON Attending Unavailable ESTERLEJASON Referring Unavailable LOMBARDO, LAUREEN Attending Unavailable LOMBARDO, LAUREEN Attending Unavailable LOMBARDO, LAUREEN Attending Unavailable LOMBARDO, LAUREEN Referring Unavailable LOMBARDO, LAUREEN Attending Unavailable LOMBARDO, LAUREEN Referring Unavailable Michela Eng MD Primary Care Provider MICHELA ENG Primary Care UnavailEDGAR Wagner Referring Unavailable MICHELA ENG Primary Care Unavailidania e MICHELA ENG Primary Care Unavailidania e Allergies Allergy Classification Reported Allergen(s) Allergy Type Date of Onset Reaction(s) Facility (5 sources) bismuth subsalicylate Drug Allergy 1 [facility] (1 source) Peptobismil [Other] Propensity to adverse reactions 5 [facility] Work Phone: (1 source) bismuth subsalicylate Drug Allergy 2 [facility] Repository Medications Current Medications Medication Drug Class(es) Dates Sig (Normalized) Sig (Original) acetaminophen 325 mg oral capsule (10 sources) acetaminophen 32 5 mg cap Take by mouth as needed. Active Comment on above: Take by mouth as nee ded. acetaminophen 325 mg / HYDROcodone bitartrate 5 mg oral tablet (3 sources) Opioid Agonist Start: 08-18-2022 take 1 tablet by mouth every six hours Hydrocodone-Acetami nophen Active 1 TABLET PO EVERY 6 HOURS 12 3 August 18, 2022 azithromycin 250 mg oral tablet (1 source) Macrolide Antimicrobial Start: 07-11-2024 End: 07-16-2024 take 2 tablets by mouth once daily, then take 1 tablet by mouth once daily azithromycin (ZITHROMAX) 250 mg tablet Indications: Rhinosinusitis Take 2 tablets by mouth once daily for 1 day, THEN 1 tablet once daily for 4 days. 6 tablet 07/11/2024 07/16/2024 Active cephalexin 500 mg oral capsule (9 sources) Cephalosporin Antibacterial Start: 11-06-2024 End: 11-13-2024 take 1 capsule by mouth three times daily cephALEXin (KEFLEX) 500 mg capsule Indications: Paronychia of left thumb Take 1 capsule by mouth three times a day for 7 days. 21 capsule 11/06/2024 11/13/2024 Active Start: 08-18-2022 take 500 mg by mouth every six hours Cephalexin Active 500 MG PO EVERY 6 HOURS August 18, 2022 12:00am Start: 07-06-2017 End: 01-03-2019 take 500 mg by mouth four times daily Cephalexin Discontinued 500 MG PO 4 TIMES DAILY July 05, 2017 11:00pm January 03, 2019 3:26pm clindamycin 150 mg oral capsule (2 sources) Lincosamide Antibacterial Start: 06-02-2021 take 300 mg by mouth four times daily Clindamycin Hcl Active 300 MG PO 4 TIMES DAILY June 02, 2021 11:00am doxycycline monohydrate 100 mg oral tablet (1 source) Tetracycline-class Drug Start: 08-01-2023 End: 08-08-2023 take 1 tablet by mouth twice daily doxycycline monohydrate 100 mg tablet Indications: Paronychia of finger of left hand Take 1 tablet by mouth two times a day for 7 days. 14 tablet 0 08/01/2023 08/08/2023 Active Comment on above: Take 1 tablet by maldonado two times a day for 7 days. mupirocin 0.02 mg/mg topical ointment (1 source) RNA Synthetase Inhibitor Antibacterial Start: 08-01-2023 End: 08-11-2023 mupirocin (BACTROBAN) 2 % ointment Indications: Paronychia of finger of left hand Apply to affected area three times a day for 10 days. 22 g 0 08/01/2023 08/11/2023 Active Comment on above: Apply to affected ar ea three times a day for 10 days. Nicotine (1 source) Cholinergic Nicotinic Agonist Start: 11-07-2022 End: 11-08-2022 apply 21 mg transdermal route once daily Nicotine 21-14-7 mg/24 hr ptds Apply 21 mg as directed once daily. 56 Patch 0 11/07/2022 11/08/2022 Discontinued (Erroneous entry) Comment on above: Apply 21 mg as direc jamshid once daily. predniSONE 20 mg oral tablet (1 source) Start: 07-11-2024 End: 07-16-2024 take 2 tablets by mouth once daily at mealtime predniSONE (DELTASONE) 20 mg tablet Indications: Acute cough Take 2 tablets by mouth once daily for 5 days. Take daily with food. 10 tablet 07/11/2024 07/16/2024 Active sertraline 100 mg oral tablet (4 sources) Serotonin Reuptake Inhibitor Start: 11-01-2024 take 1 tablet by mouth once daily sertraline (ZOLOFT) 100 mg tablet Take 1 tablet by mouth once daily. 11/01/2024 Active Start: 04-22-2024 take 1 tablet by mouth once se rtraline (ZOLOFT) 50 mg tablet Take 1 tablet by mouth every afternoon. 04/22/2024 Active Completed/Discontinued Medications Medication Drug Class(es) Dates Sig (Normalized) Sig (Original) acetaminophen 325 mg / oxyCODONE hydrochloride 5 mg oral tablet (2 sources) Opioid Agonist Start: 12-13-2022 End: 12-20-2022 take 1 tablet by mouth every six hours as needed for pain oxyCODONE-acetami nophen (PERCOCET) 5-325 mg tablet Indications: Stiffness of joint, hand, left , Post-operative state Take 1 tablet by mouth every 6 hours as needed for pain for up to 7 days. 28 tablet 0 12/13/2022 12/20/2022 Start: 08-24-2022 End: 08-31-2022 take 1 tablet by mouth every six hours as needed for pain oxyCODONE-acetaminophen (PERCOCET) 5-325 mg tablet Indications: Post-op pain Take 1 tablet by mouth every 6 hours as needed for pain for up to 7 days. 28 tablet 0 08/24/2022 08/31/2022 Comment on above: Take 1 tablet by maldonado every 6 hours as needed for pain for up to 7 days. [id number] 200 actuat albuterol 0.09 mg/actuat metered dose inhaler (4 sources) beta2-Adrenergic Agonist Start: 9 End: 2 take 2 puff(s) by inhalation every four hours as needed albuterol HFA (PROAIR HFA) 90 mcg/actuation inhaler Indications: Wheezing without diagnosis of asthma Inhale 2 Puffs as instructed every 4 hours as needed. 1 Inhaler 3 02/03/2019 08/24/2022 Discontinued Comment on above: Inhale 2 Puffs as in structed every 4 hours as needed. cholecalciferol, vitamin D3, (VITAMIN D3 ORAL) (4 sources) End: 2 cholecalciferol, vitamin D3, (VITAMIN D3 ORAL) Take by mouth once daily. 0 08/24/2022 Discontinued cholecalciferol, vitamin D3, (VITAMIN D3 ORAL) Take by mouth once daily. 0 Active Comment on above: Take by mouth once d aily. fluticasone / salmeterol (4 sources) Corticosteroid, beta2-Adrenergic Agonist Start: 02-03-2019 End: 08-24-2022 take 1 puff(s) by mouth twice daily fluticasone-salmeterol (ADVAIR DISKUS) 100-50 mcg/dose dsdv Indications: Chronic obstructive pulmonary disease, unspecified COPD type (HCC) Inhale 1 Puff as instructed twice daily. Rinse mouth out after use with water. 1 Inhaler 2 02/03/2019 08/24/2022 Discontinued Start: 02-03-2019 take 1 puff(s) by mo [facility] twice daily fluticasone-salmeterol (ADVAIR DISKUS) 100-50 mcg/dose dsdv Indications: Chronic obstructive pulmonary disease, unspecified COPD type (HCC) Inhale 1 Puff as instructed twice daily. Rinse mouth out after use with water. 1 Inhaler 2 02/03/2019 Active Comment on above: Inhale 1 Puff as ins tructed twice daily. Rinse mouth out after use with water. sildenafil 20 mg oral tablet (4 sources) Phosphodiesterase 5 Inhibitor Start: 12-27-2018 End: 08-24-2022 sildenafil (REVATIO) 20 mg tablet Indications: erectile dysfunction Take 1 tablet by mouth as directed. 1-5 tablet(s) 20 mg-100 mg, 30 min prior to intercourse, on empty stomach 30 tablet 5 12/27/2018 08/24/2022 Discontinued Comment on above: Take 1 tablet by maldonado th as directed. 1-5 tablet(s) 20 mg-100 mg, 30 min prior to intercourse, on empty stomach Problems Active Problems Problem Classification Problem Date Documented Date Episodic/Chronic Cardiac dysrhythmias (5 sources) Palpitations; Translations: [Palpitations] 01-08-2019 Episodic Chronic obstructive pulmonary disease and bronchiectasis (5 sources) Chronic obstructive lung disease; Translations: [Chronic obstructive pulmonary disease, unspecified] 01-08-2019 Chronic Disorders usually diagnosed in infancy, childhood, or adolescence (20 sources) Attention deficit hyperactivity disorder, predominantly inattentive type; Translations: [Other specified behavioral and emotional disorders with onset usually occurring in childhood and adolescence] Onset: 03-03-2008 03-03-2008 Chronic Mood disorders (20 sources) Depressive disorder; Translations: [Depression] Onset: 06-30-2010 06-30-2010 Chronic Nonspecific chest pain (5 sources) Chest pain; Translations: [Chest pain, unspecified] 04-20-2022 Episodic Other bone disease and musculoskeletal deformities (2 sources) Acquired absence of left finger(s); Translations: [S/P surgical amputation of finger, left] Onset: 06-04-2023 Episodic Other connective tissue disease (1 source) Pain in finger of left hand; Translations: [Pain in left finger(s)] Episodic Other ear and sense organ disorders (1 source) Impacted cerumen of bilateral ears; Translations: [Impacted cerumen, bilateral] Episodic Other injuries and conditions due to external causes (2 sources) Laceration of digital nerve in finger; Translations: [Injury of digital nerve of unspecified finger, initial encounter] Episodic Other lower respiratory disease (2 sources) Cough; Translations: [Acute cough] 07-11-2024 Episodic Other non-traumatic joint disorders (1 source) Decreased range of finger movement; Translations: [Stiffness of left hand, not elsewhere classified] Episodic Other non-traumatic joint disorders (6 sources) Finger joint stiff; Translations: [Stiffness of left hand, not elsewhere classified] Episodic Other upper respiratory infections (1 source) Chronic sinusitis, unspecified; Translations: [Unspecified sinusitis (chronic)] 07-11-2024 Chronic Residual codes; unclassified (3 sources) History of operation on musculoskeletal system; Translations: [Other specified postprocedural states] Episodic Residual codes; unclassified (1 source) Tobacco user; Translations: [Tobacco use] Episodic Residual codes; unclassified (2 sources) Postoperative state; Translations: [Other specified postprocedural states] Episodic Skin and subcutaneous tissue infections (12 sources) Paronychia; Translations: [Paronychia] 06-10-2021 Episodic Unclassified (1 source) Established Patient Onset: 01-16-2023 Unclassified (1 source) Acute cough; Translations: [Acute cough] Onset: 07-11-2024 Past or Other Problems Problem Classification Problem Date Documented Date Episodic/Chronic Fracture of upper limb (10 sources) Open fracture of phalanx of finger; Translations: [Fracture of unspecified phalanx of unspecified finger, initial encounter for open fracture] Onset: 03-13-2023 Episodic Open wounds of extremities (14 sources) Laceration of left index finger; Translations: [Laceration without foreign body of left index finger without damage to nail, initial encounter] Onset: 08-21-2022 Episodic Other injuries and conditions due to external causes (1 source) Injury of digital nerve of left little finger, initial encounter; Translations: [Injury of digital nerve of left little finger, initial encounter] Onset: 03-13-2023 Episodic Other nervous system disorders (1 source) Other acute postprocedural pain; Translations: [Post-op pain] Onset: 05-23-2023 Episodic Other non-traumatic joint disorders (6 sources) Stiffness of joint of left hand; Translations: [Stiffness of left hand, not elsewhere classified] Onset: 05-23-2023 05-23-2023 Episodic Other non-traumatic joint disorders (1 source) Stiffness of left hand, not elsewhere classified; Translations: [Finger stiffness, left] Onset: 05-23-2023 Episodic Residual codes; unclassified (3 sources) Other specified postprocedural states; Translations: [S/P tendon repair] Onset: 02-06-2023 Episodic Superficial injury; contusion (1 source) Unspecified superficial injury of unspecified upper arm, initial encounter; Translations: [Unspecified superficial injury of unspecified upper arm, initial encounter] Onset: 08-31-2022 Episodic Results Test Name Value Interpretation Reference Range Facility CNOV 11-06-2024 CNOV Office Visit ([facility] ) -------- MILDRED DIAS ([id number]) 1995 M Date Time Provider Department 11/06/24 9:15 AM NARDA TORRES [facility] During your visit today, we recorded the following information about you: Temperature Pulse Respiration Blood pressure 98.4 degrees 86/minute 18/minute 122/85 Weight 91.6 kg Narda Torres APRN.ASSISTANT FITNESS MANAGER 11/06/2024 10:30 AM Signed [facility] Subjective Mildred Qiu Arun is a 29 year old male. HPI Pt is a 29 y/o male who presents with thumb swelling, erythema and tenderness x 2 days. Pt reports not noticeable injury to the thumb. There are no open wounds on the thumb. Pt reports that he has a history of cellulitis on this digit in the past and has required IV antibiotics. No reports of fever at home. Pt tried using mupirocin ointment last night, did not notice any improvement. Review of Systems Constitutional: Negative for chills, fatigue and fever. Skin: L thumb swollen, erythematous and tender Objective BP 122/85 Pulse 86 Temp 36.9 ?C (98.4 ?F) Resp 18 Wt 91.6 kg (201 lb 15.1 oz) SpO2 98% BMI 28.17 kg/m? PAST MEDICAL HISTORY Diagnosis Date - ADD (attention deficit disorder) Patient states this was in elementary school - Finger pain, left - PMH - PAST MEDICAL HISTORY OF Color Vision - Good PAST SURGICAL HISTORY Procedure Laterality Date - CIRCUMCISION @ - COSMETIC EAR LOBE REPAIR 11/02/2011 - HAND SURGERY HX Left 05/2023 Little Finger Amputation - PAST SURGICAL HISTORY OF Left 08/2022 5th digit ORIF - REPAIR FINGER TENDON 10/04/2011 right middle finger ALLERGIES Patient has no known allergies. MEDICATIONS - sertraline (ZOLOFT) 100 mg tablet Take 1 tablet by mouth once daily. - cephALEXin (KEFLEX) 500 mg capsule Take 1 capsule by mouth three times a day for 7 days. - sertraline (ZOLOFT) 50 mg tablet Take 1 tablet by mouth every afternoon. (Patient not taking: Reported on 11/06/2024) - acetaminophen 325 mg cap Take by mouth as needed. (Patient not taking: Reported on 07/11/2024) FAMILY HISTORY Problem Relation Age of Onset - None Mother - None Father - other (Respiratory problems) Maternal Grandmother Unsure of exact disease - Heart Maternal Grandfather [place] @ age 27 years - Asthma Sister Social History Tobacco Use - Smoking status: Former Current packs/day: 0.00 Average packs/day: 1.5 packs/day for 9.0 years (13.5 ttl pk-yrs) Types: Cigarettes Start date: 09/03/2009 Quit date: 09/03/2018 Years since quittin.1 - Smokeless tobacco: Never Substance Use Topics - Alcohol use: No - Drug use: No Physical Exam Constitutional: General: He is awake. Skin: Comments: Well demarcated erythema, swelling, warmth and tenderness of L thumb from the tip to the DIP joint. No signs of streaking. Neurological: Mental Status: He is alert. Assessment and Plan Differential Diagnoses - paronychia is more likely for the following reason(s): suggested by HANDP - gout is less likely for the following reason(s): HANDP not suggestive Additional Tests or Interventions The following testing was considered but ultimately not selected after discussion with patient/family: xray Disposition The patient was discharged. Procedures ASSESSMENT/PLAN: 1. Paronychia of left thumb - ICD9: 681.02, ICD10: L03.012 - Begin treatment with Cephalaxin (Keflex) - No lymphangetic streaking, this was defined for patient to watch for and to seek medical care immediately if appears - recommended trying warm sitz bath to the extremity as well - CEPHALEXIN 500 MG CAPSULE Noemí Edouard TEACHING PROVIDER (Physician/PA/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 AND COREMAKING MACHINES) NOTE OF PERSONAL INVOLVEMENT IN CARE: I have personally seen and examined the patient and performed the medical decision-making components. I have reviewed the Advanced Practice Registered Nurse (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 [employer] COREMAKING MACHINES) Student's documentation and verified the findings in the note as written. Any additions or changes are noted in bold/italics. Signature: Narda Torres Date: 11/06/2024 Time: 10:27 AM Noemí Edouard 11/06/2024 9:35 AM Signed ASSESSMENT/PLAN: 1. Paronychia of left thumb - ICD9: 681.02, ICD10: L03.012 - Begin treatment with Cephalaxin (Keflex) - No lymphangetic streaking, this was defined for patient to watch for and to seek medical care immediately if appears - recommended trying warm sitz bath to the extremity as well - CEPHALEXIN 500 MG CAPSULE Allergies As of Date: 11/06/2024 (No Known Allergies) Date Reviewed: 11/06/2024 Reviewed by: Suze Gabriel MA - Fully Assessed Reason for Visit: Derm Problem [33] Cmt: L hand thumb infection x2 days Primary Visit Diagnosis:Paronychia of left thumb [L03.012] Order(s):cephALEXin (KEFLEX) 500 mg capsuleTake 1 capsule by mouth three times a day for 7 days.Disp: 21 capsuleRfl: 0 Prescriptions as of 11/06/2024 - sertral (more content not included)... Normal [facility] CNOVon 07-11-2024 CNOV Office Visit ([facility]WSTR ) -------- MILDRED DIAS ([id number]) 1995 M Date Time Provider Department 07/11/24 11:30 AM YULIA FERRER During your visit today, we recorded the following information about you: Temperature Pulse Respiration Blood pressure 97.7 degrees 76/minute 18/minute 126/84 Weight 89.5 kg Edgar Kraft APRN.[facility] 07/11/2024 12:49 PM Signed CC: Patient presents with: Cough: X2 weeks, wheezing HPI: Mildred Dias is a 28 year old male who presents to the office with complaint of chest congestion, head congestion, and cough, nonproductive for 2 weeks. Symptoms are staying the same. Associated symptoms includes wheezing. Denies dyspnea, vomiting , and diarrhea. Treatments tried include nothing so far. with no relief of symptoms. Sick contacts: unknown. History of asthma, frequent episodes of bronchitis, chronic bronchitis, bronchiectasis or COPD: No Smoker: No Seasonal/environmental allergies: No The ROS is otherwise negative. The patient's pmh, medications, allergies, and past visits are reviewed. PHYSICAL EXAM: BP 126/84 Pulse 76 Temp 36.5 ?C (97.7 ?F) Resp 18 Wt 89.5 kg (197 lb 5 oz) SpO2 98% BMI 27.52 kg/m? General appearance: alert, cooperative, pleasant, in no acute distress Head: Normocephalic Eyes: EOM's intact, conjunctiva pink and moist, no icterus, sclera white, non-injected Ears: Right ear: External ear/canal- Normal, TM - clear with good landmarks. Left ear: External ear/canal- Normal, TM - clear with good landmarks Oropharynx:moist without lesions, No erythema, exudates or tonsillar hypertrophy. Heart: Negative. RRR without obvious murmur, gallop, or rubs. No ectopy. Lungs: rhonchi right mid lobe and expiratory wheezing PAST MEDICAL HISTORY Diagnosis Date ADD (attention deficit disorder) Patient states this was in elementary school Finger pain, left PMH - PAST MEDICAL HISTORY OF Color Vision - Good PAST SURGICAL HISTORY Procedure Laterality Date CIRCUMCISION @ COSMETIC EAR LOBE REPAIR 11/02/2011 HAND SURGERY HX Left 05/2023 Little Finger Amputation PAST SURGICAL HISTORY OF Left 08/2022 5th digit ORIF REPAIR FINGER TENDON 10/04/2011 right middle finger ALLERGIES Patient has no known allergies. MEDICATIONS sertraline (ZOLOFT) 50 mg tablet Take 1 tablet by mouth every afternoon. acetaminophen 325 mg cap Take by mouth as needed. (Patient not taking: Reported on 07/11/2024) FAMILY HISTORY Problem Relation Age of Onset None Mother None Father other (Respiratory problems) Maternal Grandmother Unsure of exact disease Heart Maternal Grandfather [place] @ age 27 years Asthma Sister Social History Tobacco Use Smoking status: Former Current packs/day: 0.00 Average packs/day: 1.5 packs/day for 9.0 years (13.5 ttl pk-yrs) Types: Cigarettes Start date: 09/03/2009 Quit date: 09/03/2018 Years since quittin.8 Smokeless tobacco: Never Substance Use Topics Alcohol use: No Drug use: No ASSESSMENT/PLAN: 1. Acute cough - ICD9: 786.2, ICD10: R05.1 (primary diagnosis) - XR CHEST 2V FRONTAL/LAT- neg - PREDNISONE 20 MG TABLET 2. Rhinosinusitis - ICD9: 473.9, ICD10: J32.9 - AZITHROMYCIN 250 MG TABLET Prescription instructions reviewed with patient as applicable. Potential red flag symptoms discussed with the patient. Reviewed appropriate action plan to take if red flag symptoms occur. Patient agreeable to treatment plan. Edgar Kraft APRN.ASSISTANT FITNESS MANAGER Allergies As of Date: 07/11/2024 (No Known Allergies) Date Reviewed: 07/11/2024 Reviewed by: Suze Gabriel MA - Fully Assessed Reason for Visit: Cough [28] Cmt: X2 weeks, wheezing Primary Visit Diagnosis:Acute cough [R05.1] Other Visit Diagnosis:Rhinosinusitis [J32.9] Order(s):XR CHEST 2V FRONTAL/LAT [[id number]] Order #: [id number] FUTURE azithromycin (ZITHROMAX) 250 mg tabletTake 2 tablets by mouth once daily for 1 day, THEN 1 tablet once daily for 4 days.Disp: 6 tabletRfl: 0 predniSONE (DELTASONE) 20 mg tabletTake 2 tablets by mouth once daily for 5 days. Take daily with food.Disp: 10 tabletRfl: 0 Prescriptions as of 07/11/2024 - sertraline (ZOLOFT) 50 mg tablet Take 1 tablet by mouth every afternoon. - azithromycin (ZITHROMAX) 250 mg tablet Take 2 tablets by mouth once daily for 1 day, THEN 1 tablet once daily for 4 days. - predniSONE (DELTASONE) 20 mg tablet Take 2 tablets by mouth once daily for 5 days. Take daily with food. - acetaminophen 325 mg cap Take by mouth as needed. Problem List As Of Date 07/11/2024 Noted Resolved ATTN DEFICIT NONHYPERACT [F98.8] 03/03/2008 Depression [F32.A] 06/30/2010 Pre-op exam [Z01.818] 05/23/2023 S/P nerve repair [Z98.890] 05/23/2023 S/P tendon repair [Z98.890] 05/23/2023 Stiffness of joint, hand, left [M25.642] 05/23/2023 Prescriptions ordered this encounter Disp Refills Start End (more content not included)... Normal [facility] XR CHEST 2V FRONTAL/LATon XR CHEST 2V FRONTAL/LAT * * *Final Report* * * DATE OF EXAM: Jul 11 2024 12:16PM [id number] - XR CHEST 2V FRONTAL/LAT / PROCEDURE REASON: Acute cough * * * * Physician Interpretation * * * * EXAMINATION: CHEST RADIOGRAPH (2 VIEW FRONTAL and LATERAL) PATIENT/TECHNOLOGIST PROVIDED HISTORY: Acute cough CLINICAL HISTORY: 28 years old Male with Acute cough MQ: XC2_6 EXAM DATE/TIME: 07/11/2024 12:16 PM COMPARISON: Chest radiograph(s) dated 01/06/2019 RESULT: Lines, tubes, and devices: None. Lungs and pleura: No consolidation. No pleural effusion. No pneumothorax. Cardiomediastinal silhouette: Normal cardiomediastinal silhouette. Bones and soft tissues: Unremarkable. IMPRESSION: No acute radiographic abnormality. Manufacturer'S Representative[facility] Transcribe Date/Time: Jul 11 2024 12:41P Dictated by : JESSENIA VALDES DO This examination was interpreted and the report reviewed and electronically signed by: JESSENIA VALDES DO on Jul 11 2024 12:43PM EST [id number] Normal [facility] XR Chest PA and Lateralon IMPRESSION: No acute radiographic abnormality. Manufacturer'S Representative: [employer] Transcribe Date/Time: Jul 11 2024 12:41P Dictated by : JESSENIA VALDES DO This examination was interpreted and the report reviewed and electronically signed by: JESSENIA VALDES DO on Jul 11 2024 12:43PM [facility] DIVISION OF RADIOLOGY * * *Final Report* * * DATE OF EXAM: Jul 11 2024 12:16PM [id number] - XR CHEST 2V FRONTAL/LAT / PROCEDURE REASON: Acute cough * * * * Physician Interpretation * * * * EXAMINATION: CHEST RADIOGRAPH (2 VIEW FRONTAL & LATERAL) PATIENT/TECHNOLOGIST PROVIDED HISTORY: Acute cough CLINICAL HISTORY: 28 years old Male with Acute cough MQ: XC2_6 EXAM DATE/TIME: 07/11/2024 12:16 PM COMPARISON: Chest radiograph(s) dated 01/06/2019 RESULT: Lines, tubes, and devices: None. Lungs and pleura: No consolidation. No pleural effusion. No pneumothorax. Cardiomediastinal silhouette: Normal cardiomediastinal silhouette. Bones and soft tissues: Unremarkable. DIVISION OF RADIOLOGY Provider, [facility] - 07/11/2024 * * *Final Report* * * DATE OF EXAM: Jul 11 2024 12:16PM WOX [id number] - XR CHEST 2V FRONTAL/LAT / PROCEDURE REASON: Acute cough * * * * Physician Interpretation * * * * EXAMINATION: CHEST RADIOGRAPH (2 VIEW FRONTAL & LATERAL) PATIENT/TECHNOLOGIST PROVIDED HISTORY: Acute cough CLINICAL HISTORY: 28 years old Male with Acute cough MQ: [id number] EXAM DATE/TIME: 07/11/2024 12:16 PM COMPARISON: Chest radiograph(s) dated 01/06/2019 RESULT: Lines, tubes, and devices: None. Lungs and pleura: No consolidation. No pleural effusion. No pneumothorax. Cardiomediastinal silhouette: Normal cardiomediastinal silhouette. Bones and soft tissues: Unremarkable. IMPRESSION IMPRESSION: No acute radiographic abnormality. Manufacturer'S Representative: ERICA Transcribe Date/Time: Jul 11 2024 12:41P Dictated by : JESSENIA VALDES DO This examination was interpreted and the report reviewed and electronically signed by: JESSENIA VALDES DO on Jul 11 2024 12:43PM [facility] Radiology Study observation (narrative) [facility] XR Chest PA and LateralOrder ed By: [facility] Provider on 07-11-2024 [facility] OT D/C of Non Returning Pton 08-06-2023 OT D/C of Non Returning Pt [facility] Occupational Therapy [facility] [address] [place] [address] / REHABILITATION SERVICES DISCHARGE SUMMARY MR#: [id number] Acct: [id number] Name: MILDRED DIAS Rep #: [id number] : 1995 27 From: Tiny Caal OTR/L, CHT Referring Dr.: OUT OF TOWN DOCTOR Status: REG R CR Eval Date: Discharge Date: Patient Information Patient Information: MILDRED DIAS was seen in my office for initial evaluation on 06/13/23. The following Plan of Care was established for this patient: POC Established Initial Frequency: 2-3x /Week Initial Duration: 4-6 Weeks Plan: Continue POC: 2-3x week (4-6x wee) Anticipated Interventions Anticipated Interventions: A/AAROM/PROM, Strengthening, Scar Care, Triggerpoint Release, Desensitization, Modalities, Orthoses, Joint Protection/Energy Conservation, Education re assistive Equipment, Education re Diagnosis and Home Program Last Seen Last Seen: This patient was last seen in our office 06/19/23. Pertinent comments regarding their Occupational therapy will appear below: pt was only seen for 2 OT session and was doing well at his last session. pt has not returned at this time due to reports of IND with home IADLs and work tasks. pt d/c. At this point I will be discontinuing this patient from occupational therapy. I would be happy to see this patient again in the future if found appropriate by the physician. Thank you! Tiny Caal, CARRIR/L, CHT 08/06/23 0943 CC: LAUREEN LOMBARDO; Dr. Sudhakar Eng MD MK Signed Normal [facility] CNOVon 06-25-2023 CNOV Office Visit (ORMMMB ) -------- MILDRED DIAS ([id number]) 1995 M Date Time Provider Department 06/25/23 1:30 PM [facility] During your visit today, we recorded the following information about you: Pulse Weight Height 78/minute 81.6 kg 1.803 m Sylvie Patterson MA 06/25/2023 1:23 PM Signed Patient here 4.5 weeks post Left Little Finger Amputation. He states doing pretty good, some occasional aches. He has resumed his normal activities. Laureen Lombardo MD 06/25/2023 6:05 PM Signed Laureen Lombardo MD Hand AND Upper Extremity Surgery [address], [place] [address] [address] [facility], [address], [facility] [address] [address], [address], [place] [address] POST-OP VISIT SERVICE DATE: 06/25/2023 SURGICAL PROCEDURE: 4 weeks 5 days status post- amputation of left small finger at MCP joint SURGERY DATE: 05/23/23 Mildred Dias is a 27 year old male who presents for evaluation following the above procedure. Patient is doing well. Patient denies any fevers or chills. Patient denies any new drainage from the incision. Has occasional tingling with pressure in the webspace. Pain is controlled with None. Patient is working on strengthening and range of motion with a home exercise program without OT Work status: Not returned to work due to post op restrictions/protocol Very happy with his function. 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 Pain level: 2/10; sore MEDICATIONS: Reviewed. ALLERGIES: Reviewed. PHYSICAL EXAM: VITAL SIGNS: Pulse 78 Ht 5' 11 (1.80m) Wt 180 lb (81.6kg) SpO2 98% BMI 25.12 kg/(m2). GENERAL: The patient is well developed and well nourished, awake, alert, and oriented with appropriate mood and affect. Baseline gait and station. SKIN: Skin is non-erythematous., No active drainage. , No area of fluctuance., and Incision maturing INSPECTION/PALPATION: There is no swelling around the surgical site. TENDERNESS: There is no tenderness to palpation over the surgical site. ROM: There is good ring finger motion LIGAMENTS: Not tested. MUSCLE: Copy Holder strength is improved NEURO: Sensation is grossly intact to light touch in the median, ulnar, and radial distributions. VASCULAR: Strong radial pulse. Excellent capillary refill to all digits. POST OPERATIVE IMAGING: None obtained Assessment and Plan: (Z89.022) S/P surgical amputation of finger, left (primary encounter diagnosis) No evidence of symptomatic neuroma. He is very happy with his outcome thus far. He has been advancing his activities at home without any significant issue. He does note a couple of inconveniences due to loss of the digit like not realizing when he is using the ulnar hand to take change off the table for example. But he is learning to adapt. He feels like he will be able to perform his occupational duties much better now without the contracture. Letter provided for him to return to work. All patient's questions were answered to their satisfaction. Patient/family acknowledges understanding of instructions: Yes Patient advised to call with questions or concerns Some elements copied from my notes including the physical exam completed in entirety today, have been updated where appropriate. All reflect current medical decision making from today, 06/25/2023 Follow up 3-4 weeks. No X-Rays Needed Referring Provider: LAUREEN LOMBARDO [[id number]] Allergies As of Date: 06/25/2023 (No Known Allergies) Date Reviewed: 06/25/2023 Reviewed by: Laureen Lombardo MD - Fully Assessed Reason for Visit: Post Op [174] Primary Visit Diagnosis:S/P surgical amputation of finger, left [Z89.022] Prescriptions as of 06/25/2023 - acetaminophen 325 mg cap Take by mouth as needed. Problem List As Of Date 06/25/2023 Noted Resolved ATTN DEFICIT NONHYPERACT [F98.8] 03/03/2008 Depression [F32.A] 06/30/2010 Pre-op exam [Z01.818] 05/23/2023 S/P nerve repair [Z98.890] 05/23/2023 S/P tendon repair [Z98.890] 05/23/2023 Stiffness of joint, hand, left [M25.642] 05/23/2023 Visit Notes: >> Sylvie Patterson MA Mon Jun 25, 2023 1:21 PM Status: Signed Patient here 4.5 weeks post Left Little Finger Amputation. He states doing pretty good, some occasional aches. He has resumed his normal activities. Letter Text Encounter Status:Closed by LAUREEN LOMBARDO on 06/25/23 [facility] OT General Evaluationon 10- OT General Evaluation [facility] Occupational Therapy [facility] [address] [place] [address] / REHABILITATION SERVICES INITIAL EVALUATION MR#: [id number] Acct: [id number] Name: MILDRED DIAS Rep #: [id number] : 1995 27 From: Tiny WARREN CHT Referring Dr.: OUT OF TOWN DOCTOR Status: REG R CR Insurance: [facility] Eval Date: [facility] Patient's Visit Information Visit Information Visit Information: MILDRED DIAS is a 27 year old M, referred to Occupational Therapy by LAUREEN LOMBARDO, with a diagnosis of left LF Amputation. Date of Evaluation: 06/13/23 Occupational Therapist: BRIANA Lu CHT Subjective Subjective: This 27 year old male was seen for OT eval with dx of left LF amputation Sx DOS 05/23/23 (pt was 40 min late for apt- had the wrong time) pt states he is very happy with having sx- denies pain- no swelling and is using hand for all ADLs pt currently off work pt is left handed pt states he is performing all his ADLS and IADLs at this time- states hardest part was to wipe change off a table into his other hand- due to space he milled the change. ROM MP: left RF 80 PIP: left RF 0/105 ROM Comments: pt demo with tight composite fist pt has 4 remaining stitches left at this time- Strength Copy Holder: right 165# left 110# Lateral Pinch: right 28# left 26# Tripod Pinch: right 22# left 24# Strength Comments: pt demo with full composite fist Sensation Sensation Comments: denies sensation issues states feels great Quick DASH-Disab of Arm,Shoulder Hand Quick DASH Score: 28.5700 Goals Goal:Daily scar massage when approriate: Yes Goal:Full use of affected hand in daily activities including work: Yes Goal:Decrease scar hypersensitivity: Yes Rehabilitation General Assessment: pt arrives to session demo good healing from a left LF amputation. Pt demo need for skilled OT services 2-3x week for 4 weeks to ed. pt on adaptive ashley. desensitization and scar mtg. Pt agreeable to POC. Rehabilitation Potential: Good Anticipated Interventions Anticipated Interventions: A/AAROM/PROM, Strengthening, Scar Care, Triggerpoint Release, Desensitization, Modalities, Orthoses, Joint Protection/Energy Conservation, Education re assistive Equipment, Education re Diagnosis and Home Program Visit Plan Frequency: 2-3x /Week Duration: 4-6 Weeks TEXT: Thank you for the opportunity to evaluate your patient. For Medicare and Medicare HMO plans, please review the plan of care and approve it. It will need to be FAXED BACK to us at [phone] for Medicare purposes. Please let me know if there are questions or concerns regarding this plan of care. Physician Signature: Date: ____ 06/15/23 1210 CC: LAUREEN LOMBARDO; Dr. Sudhakar Eng MD MK Signed For Medicare only, by signing this I certify the plan of care. ____ Physicians Signature Date [facility] CNOVon 06-04-2023 CNOV Office Visit (ORMMMB ) -------- MILDRED DIAS ([id number]) 1995 M Date Time Provider Department 06/04/23 1:15 PM [facility] During your visit today, we recorded the following information about you: Pulse Weight Height 79/minute 81.6 kg 1.803 m Laureen Lombardo MD 06/05/2023 5:57 AM Signed Laureen Lombardo MD Hand AND Upper Extremity Surgery [address], [place] [address] [address], [address], [place] [address] [address], [address], [place] [address] POST-OP VISIT SERVICE DATE: 06/04/2023 SURGICAL PROCEDURE: 12 days status post- surgical amputation of the left 5th digit SURGERY DATE: 05/23/23 Mildred Dias is a 27 year old male who presents for evaluation following the above procedure. Patient is doing well. Patient denies any fevers or chills. Patient denies any new drainage from the incision. Denies any numbness/tingling. Denies phantom pain. Pain is controlled with OTC Tylenol and/or NSAIDs. Patient is working on range of motion with a home exercise program without OT Work status: Not returned to work due to post op restrictions/protocol Able to do some stuff at home with the hand but has not pushed it in order to protect the incision. Pain level: 310 MEDICATIONS: Reviewed. ALLERGIES: Reviewed. PHYSICAL EXAM: VITAL SIGNS: Pulse 79 Ht 5' 11 (1.80m) Wt 180 lb (81.6kg) SpO2 94% BMI 25.12 kg/(m2). GENERAL: The patient is well developed and well nourished, awake, alert, and oriented with appropriate mood and affect. Baseline gait and station. SKIN: Incision clean, dry, intact, well approximated, Skin is non-erythematous., No active drainage. , and No area of fluctuance. INSPECTION/PALPATION: There is normal post op swelling around the surgical site. TENDERNESS: There is tenderness to palpation over the surgical site. ROM: There is good range of motion of the ring through thumb digits LIGAMENTS: Not tested. MUSCLE: Copy Holder strength is not tested NEURO: Sensation is grossly intact to light touch in the median, ulnar, and radial distributions. VASCULAR: Strong radial pulse. Excellent capillary refill to all digits. POST OPERATIVE IMAGING: None obtained Assessment and Plan: (Z89.022) S/P surgical amputation of finger, left (primary encounter diagnosis) Patient did not obtain the digit as planned. He is happy with his results thus far. We did review the intraoperative findings of this intra-articular and tendon stiffness. We discussed needing therapy for home exercise program for strengthening as the sutures heal. All patient's questions were answered to their satisfaction. Patient/family acknowledges understanding of instructions: Yes Patient advised to call with questions or concerns Follow up 3-4 weeks. No X-Rays Needed Referring Provider: LAUREEN LOMBARDO [[id number]] Allergies As of Date: 06/04/2023 (No Known Allergies) Date Reviewed: 06/04/2023 Reviewed by: Laureen Lombardo MD - Fully Assessed Reason for Visit: Post Op [174] Cmt: Surgery 05/23/23 Primary Visit Diagnosis:S/P surgical amputation of finger, left [Z89.022] Order(s):CONSULT TO OCCUPATIONAL THERAPY/HAND THERAPY (AG) [8041732] Order #: [id number]: 1 Prescriptions as of 06/05/2023 - acetaminophen 325 mg cap Take by mouth as needed. Problem List As Of Date 06/04/2023 Noted Resolved ATTN DEFICIT NONHYPERACT [F98.8] 03/03/2008 Depression [F32.A] 06/30/2010 Pre-op exam [Z01.818] 05/23/2023 S/P nerve repair [Z98.890] 05/23/2023 S/P tendon repair [Z98.890] 05/23/2023 Stiffness of joint, hand, left [M25.642] 05/23/2023 Encounter Status:Closed by LAUREEN LOMBARDO on 06/05/23 [facility] ANES POSTPROC EVALon 023 ANES POSTPROC EVAL HNO ID: [id number] Author: Giovanni Lou MD Service: Anesthesiology Author Type: Physician Type: Anesthesia Postprocedure Evaluation Filed: 05/23/2023 10:44 AM Note Text: POST ANESTHESIA EVALUATION NOTE : 1995 Procedure Summary Date: 05/23/23 Room / Location: [place] [address] / [facility] Anesthesia Start: 827 Anesthesia Stop: 947 Procedure: Amputation of left small finger (Left: Finger little ) Diagnosis: Finger stiffness, left S/P tendon repair S/P nerve repair (Finger stiffness, left [M25.642]) (S/P tendon repair [Z98.890]) (S/P nerve repair [Z98.890]) Surgeons: Laureen Lombardo MD Responsible Provider: Giovanni Lou MD Anesthesia Type: MAC ASA Status: 2 Anesthesia Type: MAC Last Vitals Vitals Value Taken Time BP 119/90 05/23/23 1008 Temp 36.4 ?C (97.5 ?F) 05/23/23 0948 HR SpO2 69 05/23/23 1009 Resp 14 05/23/23 1008 SpO2 99 % 05/23/23 1009 Vitals shown include unvalidated device data. Post Anesthesia Patient Status Patient Evaluation: bedside. Anticipated Disposition: phase 2 then home. Neurological Status: aware and responsive. Pulmonary Status: breathing comfortably on room air Airway Control: returned to baseline unsupported. Cardiovascular Status: stable. Pain Management: clinically adequate Postoperative Hydration: acceptable. Intraoperative Events: no significant anesthesia events Post Operative Nausea/Vomiting Status: no significant post operative nausea or vomiting Recommendation: continue current plan of care. Anesthesia Observations No Documentation SIGNATURE: Giovanni Lou MD PATIENT NAME: Mildred Dias DATE: May 23, 2023 TIME: 10:43 AM CSN: [id number] Normal [facility] ANES PRE-OPon 05-23-2023 ANES PRE-OP HNO ID: [id number] Author: Giovanni Lou MD Service: Anesthesiology Author Type: Physician Type: Anesthesia Preprocedure Evaluation Filed: 05/23/2023 7:24 AM Note Text: ANESTHESIOLOGY DAY OF SURGERY NOTE : 1995 Procedure Information Date/Time: 05/23/23 0830 Procedure: Amputation of left small finger (Left: Finger little ) Location: [place] [address] / [facility] Surgeons: Laureen Lombardo MD Estimated body mass index is 25.1 kg/m? as calculated from the following: Height as of this encounter: 180.3 cm (5' 11). Weight as of this encounter: 81.6 kg (180 lb). Most recent hematocrit and potassium results: Hematocrit 43.3 01/01/2019 Potassium 3.6 01/01/2019 Relevant Problems No relevant active problems I - PHYSICAL EVALUATION AIRWAY Patient intubated: No. Tracheostomy tube not present Mallampati: II. TM distance: >3 FB. Neck ROM: full ROM without neurological symptoms. Mouth opening: adequate. Short neck: no. Thick neck: no DENTAL Dental findings: poor dentition. Additional exam findings: no II - ANESTHESIA PLAN ASA Score: 2 Anesthetic Plan: MAC The patient is not a current smoker. NPO Status: adequate Anesthetic plan additional comments: GA/LMA backup. Beta Duane Monitoring Plan Monitoring plan: standard ASA. Post Procedure Analgesic Plan Postoperative analgesic plan: parenteral or oral opioids. Informed Consent Anesthetic risks, benefits, alternatives, personnel and consent discussed: yes. Patient / Responsible Libertarian agrees to proceed: yes Patient / Surrogate agrees to blood products: Yes DNR status not reviewed with patient and/or family prior to surgery. Significant changes in the patient condition since the History and Physical, not otherwise documented in primary service progress note: no. Potential Anesthesia issues that may suggest increased risk of complications or contraindication to planned procedure: none. Vitals Value Taken Time BP 130/69 05/23/23 0707 Pulse 65 05/23/23 0707 Resp 18 05/23/23 0707 Temp 36.1 ?C (97 ?F) 05/23/23 0707 SpO2 100 % 05/23/23 0707 Facility-Administered Medications as of 05/23/2023 Medication Dose Route Frequency - lidocaine 10 mg/mL (1 %) 1-2 mg injection (XYLOCAINE) 0.1-0.2 mL INTRADERMAL PRN - lactated ringers iv infusion 5-30 mL/hr INTRAVENOUS CONTINUOUS - NaCl 0.9% iv flush bag 20 mL INTRAVENOUS PRN - ceFAZolin iv piggyback 2 g in D5W (iso-osmotic) 100 mL (ANCEF) 2 g INTRAVENOUS Pre-Op Once Outpatient Medications as of 05/23/2023 Medication Sig - acetaminophen 325 mg cap Take by mouth as needed. I have interviewed and examined the patient. I have reviewed the medical record and/or the pre-anesthesia evaluation, pertinent labs, and test results. This contains updated information obtained within 48 hours of Surgery/Procedure. SIGNATURE: Giovanni Lou MD PATIENT NAME: Mildred Dias DATE: May 23, 2023 TIME: 7:23 AM CSN: [id number] Normal [facility] HISTORY PHYSICALon HISTORY PHYSICAL HNO ID: [id number] Author: Genet Mcmullen APRN.ASSISTANT FITNESS MANAGER Service: Anesthesiology Author Type: Nurse Practitioner Type: HANDP Filed: 05/23/2023 8:19 AM Note Text: HISTORY AND PHYSICAL EXAMINATION Mildred Dias 1995 SERVICE DATE: 05/23/2023 SERVICE TIME: 7:31 AM PRIMARY CARE PHYSICIAN: No primary care provider on file. SURGEON: Surgeon(s) and Role: * Laureen Lombardo MD - Primary ANESTHESIA: Monitored Anesthesia Care DIAGNOSIS: Finger stiffness, left [M25.642] S/P tendon repair [Z98.890] S/P nerve repair [Z98.890] PROCEDURE: Procedure(s): Amputation of left small finger (Left) Subjective CHIEF COMPLAINT: amputation of left small finger The reason for this visit is to perform a comprehensive review of the patient's past medical history, assess their current health status and obtain any additional testing required based on anesthesia guidelines. We will also identify any potential anesthesia problems or contraindications to the planned procedure. HPI: This is a 27 year old male who presents with finger stiffness left, s/p tendon repair, s/p nerve repair. Pt with work related injury 08/18/2022, has had tow prior surgeries. States dull pain, unable to straighten finger and has difficulty performing job duties due to it. Pt presents for surgical intervention with Dr Lombardo. METS: Climb a flight of stairs or walk up a hill (5.50 METs) FUNCTIONAL STATUS: Independent PAST MEDICAL HISTORY Diagnosis Date ADD (attention deficit disorder) Patient states this was in elementary school Finger pain, left PMH - PAST MEDICAL HISTORY OF Color Vision - Good PAST SURGICAL HISTORY Procedure Laterality Date CIRCUMCISION @ COSMETIC EAR LOBE REPAIR 11/02/2011 PAST SURGICAL HISTORY OF Left 08/2022 5th digit ORIF REPAIR FINGER TENDON 10/04/2011 right middle finger FAMILY HISTORY Problem Relation Age of Onset None Mother None Father other (Respiratory problems) Maternal Grandmother Unsure of exact disease Heart Maternal Grandfather [place] @ age 27 years Asthma Sister Social History Tobacco Use Smoking status: Former Packs/day: 1.50 Years: 9.00 Additional pack years: 0.00 Total pack years: 13.50 Types: Cigarettes Quit date: 09/03/2018 Years since quittin.7 Smokeless tobacco: Never Substance Use Topics Alcohol use: No Drug use: No Prior to Admission medications as of 05/23/23 0752 Medication Sig Last Dose Taking acetaminophen 325 mg cap Take by mouth as needed. Yes ALLERGIES No Known Allergies COMPLETE REVIEW OF SYSTEMS: GENERAL: No weight loss, malaise or fevers RESPIRATORY: Negative for cough, hemoptysis, wheezing, COPD, dyspnea or shortness of breath Cardiac: Negative for chest pain, leg swelling, hypertension, CHF or palpitations GI: No nausea, vomiting, or diarrhea : No history of dysuria, frequency or incontinence MUSCULOSKELETAL: see HPI PSYCH: Negative for sleep disturbance, mood disorder and recent psychosocial stressors, +ADD ENDOCRINE:Denies diabetes and thyroid problems NEURO: No Hx seizures, tremors or CVA Heme/Onc: No hx blood clots, clotting disorders, or cancer Objective PHYSICAL EXAM: 05/11/23 1104 05/23/23 0707 BP: 130/69 Pulse: 65 Resp: 18 Temp: 36.1 ?C (97 ?F) TempSrc: Temporal Artery SpO2: 100% Weight: 81.6 kg (180 lb) Height: 180.3 cm (5' 11) Body mass index is 25.1 kg/m?. MENTAL STATUS: alert, oriented to person, place and time HEENT: Normocephalic/atraumatic , pharynx LUNGS: Lungs clear to auscultation, Good diaphragmatic excursion CARDIAC: Normal S1 and S2; no rubs, murmurs, or gallops ABDOMEN: Soft, nontender EXTREMITIES: no open areas left hand, left radial pulse +2 Diagnostic tests reviewed for today's visit: Lab Value Units Date High Low HB No results within date range. HCT No results within date range. WBC No results within date range. PLT No results within date range. NA No results within date range. K No results within date range. GLUC No results within date range. BUN No results within date range. CREAT No results within date range. PTSEC No results within date range. INR No results within date range. APTT No results within date range. ALT No results within date range. AST No results within date range. TBILI No results within date range. TSH No results within date range. Lab Value Units Date High Low HCGQT No results within date range. UHCG No results within date range. HCG, BODY* No results within date range. Lab Value Units Date High Low ABORHD No results within date range. ABSCREEN No results within date range. No results found for: HBA1C Assessment/Plan ANESTHESIA FINDINGS: Intubation History: No history of difficult intubation Significant Anesthesia Considerations: None FAMILY PROBLEMS WITH ANESTHESIA: no history of adverse anesthetic event There is no known pertinent medical condition which may (more content not included)... Normal [facility] OPERATIVE NOon 05-23-2023 OPERATIVE NO HNO ID: [id number] Author: Laureen Lombardo MD Service: Orthopaedic Surgery Author Type: Physician Type: Operative Report Filed: 05/28/2023 6:58 AM Note Text: Operative Report Name: Mildred Dias Surgery/Procedure Date: 05/23/2023 LOG ID: [id number] Incision/Procedure Start Time: 8:47 AM Incision Close/Procedure End Time: 9:44 AM Surgeon(s)/Proceduralist (s) and Transitional Studies Instructor(s): Surgeon(s) and Role: * Laureen Lombardo MD - Primary Bottling Room Worker: Kateryna Haywood SA Anesthesia: Monitored Anesthesia Care Pre-Operative Diagnosis: 1) 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 Encourage other finger range of motion. Plan will be dressing change on POD#3 at home. Indications: Mildred Dias presented with a significant injury to the proximal interphalangeal joint of the left small finger in August 2022. He was offered different treatment options for the intra-articular fracture and chose to not consent to a hemihamate arthroplasty. Open reduction internal fixation, FDP repair and digital nerve repair were performed but he developed stiffness of the PIP joint. He underwent tenolysis and neurolysis but redeveloped the contracture which limited his ability to perform ADLs and his chosen occupation. Due to patient's wishes and need to return to activities, plan was to perform an amputation of the small finger. Risks, benefits, alternatives were explained to the patient. Questions regarding the procedure were answered to the patient's satisfaction. Risks to include but not limited to: poor wound healing, continued infection, injury to the tendons, ligaments, bones, joints, muscles, nerves, and blood vessels, as well as the need for further/repeat surgery. No guarantees were stated or implied. The patient wishes to proceed with surgery as scheduled. Procedure Details: The patient was identified in the holding area, where the correct patient surgical site/ surgical plan were reviewed with the patient and the nurse and the left small finger was marked with a marking pen by myself. A pre-operative huddle was performed. he was brought back to the operating room and placed on the operative table in supine position with all bony prominences padded. IV sedation was initiated by the anesthesia department. At all times, head, neck, and airway were controlled by the Anesthesia staff. A tourniquet was placed in the patient's affected upper extremity. All members in the room paused and a time out was initiated. We identified the patient had received the planned upon antibiotics and SCDs were on and functional. When all members in the room were in agreement we proceeded with the operation. The left hand was prepped with Chlora-prep and draped in standard orthopedic fashion. 20 cc of 1:1 mixture of 1% lidocaine plain and 0.25% bupivacaine plain were administered for local anesthesia as a field block. The affected upper extremity was exsanguinated and the tourniquet was raised to 180 mm of mercury. Attention was turned towards the affected area. Incision was made at the proximal aspect of the proximal phalanx in order to leave additional skin for later closure. The radial and ulnar neurovascular bundles were identified with Littler dissection. The nerves were crushed then cut and cauterized in order to prevent neuroma. They retracted. Next, the extensor mechanism was exposed and cut proximally with a sharp scalpel. The metacarpophalangeal joint was entered and the volar plate also cut. The flexor tendon was exposed from the volar side and cut at its most proximal extent to allow it to retract. The joint was disarticulated. The wound was then irrigated with copious amounts of sterile saline. The skin was assessed and using a sharp scalpel cut back for a cosmetic wound. I made sure that there was enough redundancy to allow for unimpeded flexion of the ring finger volarly. Tourniquet was deflated and hemostasis achieved with bipolar cautery. Wounds were closed. Sterile dressings were placed over the incisions. Patient was awakened from anesthesia and taken to recovery in stable condition. Specimens: Left small finger Drains: None Implant: * No implants in log * Attending Attestation: I/primary surgeon/proceduralist performed the procedure with assistance. Laureen Lombardo MD [facility] SURGICAL PATHOLOGYon 023 CASE REPORT [facility] Comment on above: Order Comment: Speci men Type: TISSUE SPECIMENOrdering Facility: [facility] Address: [address] [place], [place] [address] Result Comment: Surg [facility] Pathology Report Case: [id number] Authorizing Provider: Laureen Lombardo MD Collected: 05/23/2023 09:12 AM Ordering Location: [facility] Received: 05/24/2023 11:41 AM Pathologist: Pikny Momin MD Specimen: DIGIT FIFTH, LEFT HAND, left small finger Performed By: #### S ####[facility] LABORATORYCLIA [id number] [address] [place] CLINICAL HISTORY Finger stiffness, le ft. S/P tendon repair. S/P nerve repair. Normal [facility] Comment on above: Order Comment: Speci men Type: TISSUE SPECIMENOrdering Facility: [facility] Address: [address] [place] [address] Performed By: #### S ####[facility] LABORATORYIA [id number] [address] OF [facility] FINAL DIAGNOSIS Normal [facility] Comment on above: Order Comment: Speci men Type: TISSUE SPECIMENOrdering Facility: [facility] Address: [address] [place] [address] Result Comment: Hand , left fifth digit, finger amputation: - Unremarkable skin and underlying bone and soft tissue. - Bone and soft tissue at the line of resection with no pathologic diagnosis. Performed By: #### S ####[facility] LABORATORYCLIA [id number] [address] FINAL PERFORMING LAB Normal [facility] Comment on above: Order Comment: Speci men Type: TISSUE SPECIMENOrdering Facility: [facility] Address: [address] [place] [address] Result Comment: Diag nostic interpretation performed at [facility], [address] [place] [address] CLIA# [id number] Microcomputer Technician: Abner Lamb M.D. Performed By: #### S ####[facility] LABORATORYCLIA [id number] [address] GROSS DESCRIPTION Normal [facility] Comment on above: Order Comment: Speci men Type: TISSUE SPECIMENOrdering Facility: [facility] Address: [address] [place] [address] Result Comment: A. D IGIT FIFTH, LEFT HAND A. Received in formalin labeled left small finger is a specimen consisting of a finger measuring 7.3 x 2.3 x 2.5 cm. Ulcerations and lesions are not present. The fingernail has a red-purple hemorrhagic area measuring 0.5 x 0.3 cm. The bone and soft tissue line of resection appears grossly viable. 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 are submitted as follows: A1 bone line of resection following a period of decalcification A2 section of distal tip of finger with discolored nailbed following a period of decalcification Gross examination performed at [facility], [address] [place] [address] KVB May 24, 2023 1:24 PM Performed By: #### S ####[facility] LABORATORYCLIA [id number] [address] XR DIGIT SPECIFY 1V LTon XR DIGIT SPECIFY 1V LT * * *Final Report* * * DATE OF EXAM: May 23 2023 9:57AM AWX [id number] - XR DIGIT SPECIFY 1V LT / PROCEDURE REASON: surgery * * * * Physician Interpretation * * * * EXAM TITLE: XR DIGIT SPECIFY 1V LT DATE: 05/23/2023 INDICATION: Amputation of left fifth digit. COMPARISON: None. Single image shows absence of the left fifth digit at the level of the metacarpal phalangeal joint. 4.4 seconds of fluoroscopic time utilized. IMPRESSION: Status post amputation left fifth digit. Manufacturer'S Representative: PSCB Transcribe Date/Time: May 23 2023 11:26A Dictated by : SHAQ BROWN MD This examination was interpreted and the report reviewed and electronically signed by: SHAQ BROWN MD on May 23 2023 11:28AM EST [id number] Normal [facility] CNOVon 03-16-2023 CNOV Office Visit (AGORT ) -------- ARUNMILDRED Qiu ([id number]) 1995 M Date Time Provider Department 03/16/23 10:30 AM JASON FORBES During your visit today, we recorded the following information about you: Respiration Weight Height 18/minute 85.3 kg 1.803 m Jason Forbes MD 03/19/2023 9:25 AM Signed Patient presents with: Left Little Finger - New, Pain, Swelling, Numbness HISTORY OF PRESENT ILLNESS Mildred Uyen Dias is a 27 year old male right hand dominant who presents for a second opinion. The patient has been treated to date by Dr. Lombardo. This is a [facility] case. He has a history of injury dating back to 08/18/2022 when a high-energy spring came loose and injured the volar aspect of his left small finger. He had a displaced articular fracture of the small finger PIP joint in addition to tendon laceration and digital nerve laceration. The patient underwent surgery on 08/24/2022. He underwent exploration with ORIF of the articular fracture, volar plate arthroplasty as well as repair of the small finger FDP, small finger FDS tenotomy and repair of the radial digital nerve. The patient states that he had profound stiffness and pain following this, and had tried very hard through therapy to improve his motion. He underwent a second procedure on 12/13/2022 with flexor tenosynovectomy, and a PIP joint capsulectomy. He states that this did not improve his motion. 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 He states that he does not wish to have any additional surgery and would like to bring finality to this and had discussed amputation at the PIP joint level with Dr. Lombardo. She wished to have another opinion regarding this. 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 Quit 09/03/2018. Types: Cigarettes REVIEW OF SYSTEMS Cardiovascular ROS:No history of chest pain, palpitation, orthopnea, cyanosis, pedal edema Neurologic ROS: Numbness and Tingling:Yes PAST MEDICAL HISTORY Past medical, surgical, family, and social histories have been reviewed and updated with the patient today and are located elsewhere in the medical record. Diabetes:No ALLERGIES ALLERGIES No Known Allergies PHYSICAL EXAMINATION Resp 18 Ht 180.3 cm (5' 11) Wt 85.3 kg (188 lb) BMI 26.22 kg/m? Body mass index is 26.22 kg/m?. General Appearance Well appearing, alert, in no acute distress, well-hydrated, well nourished. Alert and oriented times: 3 Normal affect times: 3 Appears stated age and well nourished Gait and station:normal Left Upper Extremity Exam: Inspection shows healed incisions on the volar aspect of the small finger Resting flexed posture of 50 degrees at the PIP joint Skin: WNL Tenderness to palpation: Tender along the zone of injury ROM: Profound stiffness with attempted isolation of the DIP. There is very minimal DIP motion. No significant PIP flexion either. 2 cm deficit tip to palm on composite fist No substantial change with passive motion either Instability: none Sensation:Normal sensation on the ulnar aspect of the small finger Dysesthesia on the radial side Atrophy: None Brisk capillary refill REVIEW OF STUDIES X-rays 02/06/2023 3 views of the left small finger demonstrate a concentric joint surface with a single interfragmentary screw in place. ASSESSMENT AND PLAN ASSESSMENT/PLAN: 1. Finger stiffness, left - ICD9: 719.54, ICD10: M25.642 (primary diagnosis) 2. S/P tendon repair - ICD9: V45.89, ICD10: Z98.890 3. S/P nerve repair - ICD9: V45.89, ICD10: Z98.890 I discussed the diagnosis at length with the patient. He has a very complex set of injuries to the finger and despite having a recent surgery for the stiffness, he has not seen any significant improvement. He is very clear about his desires and the reasons behind them, and states emphatically that he does not wish to have any additional treatments. I did discuss the option of a secondary capsulectomy and tenolysis under local anesthesia but again he would prefer to proceed with a more predictable solution and requests amputation. We discussed some of the issues surrounding this inclusive of phantom pains, sensitivity, cold intolerance etc. I think it would be reasonable to proceed with an amputation especially given the failed tenolysis. He is going to return to care with Dr. Lombardo to discuss this further. Jason Forbes MD Patient educated on treatment options for stiff postoperative digit Patien (more content not included)... Normal [facility] OT D/C of Non Returning Pton 03-08-2023 OT D/C of Non Returning Pt [facility] Occupational Therapy [facility] [address] [place] [address]. [address] [place] [address] / REHABILITATION SERVICES DISCHARGE SUMMARY MR#: [id number] Acct: [id number] Name: MILDRED DIAS Rep #: [id number] : 1995 27 From: Tiny Houston OTR/L, CHT Referring : OUT OF TOWN DOCTOR Status: REG R CR Eval Date: Discharge Date: Patient Information Patient Information: MILDRED DIAS was seen in my office for initial evaluation on 09/20/22. The following Plan of Care was established for this patient: POC Established Initial Frequency: 2-3x /Week Initial Duration: 4-6 Weeks Plan: AROM following tenolysis protocol pt has place and hold PROM and AROM ex Anticipated Interventions Anticipated Interventions: A/AAROM/PROM, Strengthening, Edema Control, Scar Care, Triggerpoint Release, Sensory Retraining, Wound Care, Modalities, Orthoses, Ergonomic Education, Fine Motor Coord/Tushar, Neuro Reeducation, Education re assistive Equipment, Education re Diagnosis and Home Program Last Seen Last Seen: This patient was last seen in our office 01/17/23. Pertinent comments regarding their Occupational therapy will appear below: pt was seen for 10 OT sessions following finger sx. at this time pt is d/c due to end of c9 POC. At this point I will be discontinuing this patient from occupational therapy. I would be happy to see this patient again in the future if found appropriate by the physician. Thank you! Tiny Caal, OTR/L, CHT 03/08/23 1344 CC: LAUREEN LOMBARDO; Dr. Sudhakar Eng MD DANNA Signed Normal [facility] 03-02-2023 [facility] Telephone (AGPOB3) -------- MILDRED DIAS ([id number]) 1995 M Date Time Provider Department 03/02/23 JASON FORBES During your visit today, we recorded the following information about you: Amanda Cisse 03/02/2023 2:20 PM Signed ----- Message from Natividad Morgan sent at 03/02/2023 10:35 AM EDT ----- Ks. We had received approval for the patients second opinion with Dr. Forbes. Please schedule the patient. Thanks! Allergies As of Date: 03/02/2023 (No Known Allergies) Date Reviewed: 02/06/2023 Reviewed by: Laureen Lombardo MD - Fully Assessed Reason for Visit: Appointment [186] Cmt: [facility] 2nd opinion Prescriptions as of 03/05/2023 - acetaminophen 325 mg cap Take by mouth as needed. 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 [facility] [address] [address], [address], [facility] [address] [address] [facility] [address], [facility] [address] [address], [facility] [address], [place] [id number] POST-OP VISIT SERVICE DATE: 02/06/2023 SURGICAL PROCEDURE: 7 weeks 6 days status post- tenolysis of the left small finger FDP SURGERY DATE: 12/13/22 Mildred Dias is a 27 year old male who presents for evaluation following the above procedure. Patient is doing well postoperatively and advancing through postop protocol. Patient denies any fevers or chills. Patient denies any new drainage from the incision. Slightly improved radial digital numbness/tingling. Pain is controlled with 9. Patient is working on range of motion with a home exercise program with OT Work status: has returned to work He states he has been using an LMB splint and extension splints. He states that the digit is getting in the way of what he needs to do. He tries to bypass it but the existence of it is bothering him more. He again reiterates interest in amputation. MEDICATIONS: Reviewed. ALLERGIES: Reviewed. PHYSICAL EXAM: VITAL SIGNS: Resp 18 Ht 5' 11 (1.80m) Wt 180 lb (81.6kg) BMI 25.12 kg/(m2). GENERAL: The patient is well developed and well nourished, awake, alert, and oriented with appropriate mood and affect. Baseline gait and station. SKIN: The skin surrounding the incision is non-erythematous. No active drainage. No fluctuance or fluid collection. Incision well healed. Scar tissue palpable at the volar surface. INSPECTION/PALPATION: There is interval improvement of swelling around the surgical site, within normal post-op limits, and no palpable joint effusion. TENDERNESS: There is is tenderness to palpation over the surgical site. ROM: There is -55 deg extension lag at PIP joint of the small finger; it is progressively worsening LIGAMENTS: Not tested. MUSCLE: Copy Holder strength is decreased due to pain. NEURO: Sensation is grossly intact to light touch in the median, ulnar, and radial distributions. VASCULAR: Strong radial pulse. Excellent capillary refill to all digits. POST OPERATIVE IMAGIN view (lateral) of the left small finger were obtained, reviewed and interpreted and demonstrate no evidence of implant articular penetration or loss of joint congruity. Small step off at the prior fracture line. Assessment and Plan: (Z98.890) Post-operative state (primary encounter diagnosis) (M25.642) Finger stiffness, left Unfortunately he has scar formation again over the PIP joint and proximal phalanx volarly. The x-rays do not indicate any displacement of the fragment or screw that would indicate bony or hardware block. I discussed with him again that prior to pursuing amputation for a sensate vascularized digit I would like him to seek another opinion with one of my senior partners. I will send him to Dr. Forbes for another opinion. He is agreeable to this. Patient/family acknowledges understanding of instructions: Yes Patient advised to call with questions or concerns Follow up after another opinion. Referring Provider: LAUREEN LOMBARDO [[id number]] Allergies As of Date: 02/06/2023 (No Known Allergies) Date Reviewed: 02/06/2023 Reviewed by: Laureen Lombardo MD - Fully Assessed Reason for Visit: Established Patient [175] Cmt: Still having pain and swelling, ROM limited. No falls or injuries. Follow Up [171] Cmt: Still having pain and swelling, ROM limited. No falls or injuries. Pain [78] Cmt: Still having pain and swelling, ROM limited. No falls or injuries. Swelling [205] Cmt: Still having pain and swelling, ROM limited. No falls or injuries. Primary Visit Diagnosis:Post-operative state [Z98.890] Other Visit Diagnosis:Finger stiffness, left [M25.642] Order(s):XR DIGIT GENERAL 3V FRONTAL/LAT/OBL LEFT [[id number]] Order #: [id number] Prescriptions as of 02/06/2023 - acetaminophen 325 mg cap Take by mouth as needed. 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 [address], [facility] [address] [facility] [address] [address] [facility], [address], [facility] [address] [address], [address], [place] [address] POST-OP VISIT SERVICE DATE: 01/16/2023 SURGICAL PROCEDURE: 4 weeks 6 days status post- tenolysis of the left small finger FDP SURGERY DATE: 12/13/22 Mildred Dias is a 27 year old male who presents for evaluation following the above procedure. Patient is doing well postoperatively and advancing through postop protocol. Patient denies any fevers or chills. Patient denies any new drainage from the incision. Improving numbness/tingling. Pain is controlled with intermittent use of over the counter NSAIDs. Patient is working on range of motion with a home exercise program with OT. Denies new trauma. Denies popping or episodes of instability sensation. Work status: has returned to work Despite significant improvement from preoperative patient is still not happy that his finger does not go fully straight at the PIP joint. He is willing to continue working with OT but states he still wishes it was amputated at times. Patient is working with OT on adhesions in the palm and he had an LMB but misplaced it. He also wears an extension splint but states that it eventually hurts and he has to remove it. MEDICATIONS: Reviewed. ALLERGIES: Reviewed. PHYSICAL EXAM: VITAL SIGNS: Resp 18 Ht 5' 11 (1.80m) Wt 180 lb (81.6kg) BMI 25.12 kg/(m2). GENERAL: The patient is well developed and well nourished, awake, alert, and oriented with appropriate mood and affect. Baseline gait and station. SKIN: The skin surrounding the incision is non-erythematous. No active drainage. No fluctuance or fluid collection. 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 TENDERNESS: There is is not tenderness to palpation over the surgical site. ROM: There is -30 deg extension lag at the PIP joint. 75 deg of MCP flexion; 55 deg of PIP flexion. LIGAMENTS: Not tested. MUSCLE: Copy Holder strength is decreased due to pain. NEURO: Sensation is grossly intact to light touch in the median, ulnar, and radial distributions. VASCULAR: Strong radial pulse. Excellent capillary refill to all digits. POST OPERATIVE IMAGING: None Assessment and Plan: (Z98.890) Post-operative state (primary encounter diagnosis) (M25.642) Finger stiffness, left Again I reviewed with him that I think we can continue to work with therapy on the remaining contracture. I reiterated the seriousness of his original injury. He remains frustrated. I would like him to wait until maximal improvement is achieved before deciding to seek another opinion for amputation of the digit. Patient verbalized understanding and agreement with plan. Patient/family acknowledges understanding of instructions: Yes Patient advised to call with questions or concerns Follow up in 3 weeks. X-Rays Needed: 3 views of the left small finger Referring Provider: LAUREEN LOMBARDO [[id number]] Allergies As of Date: 01/16/2023 (No Known Allergies) Date Reviewed: 01/16/2023 Reviewed by: Laureen Lombardo MD - Fully Assessed Reason for Visit: Established Patient [175] Primary Visit Diagnosis:Post-operative state [Z98.890] Other Visit Diagnosis:Finger stiffness, left [M25.642] Prescriptions as of 01/19/2023 - acetaminophen 325 mg cap Take by mouth as needed. 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 [place] [address] / REEVALUATION / MEDICARE RECERTIFICATION OCCUPATIONAL THERAPY MR#: [id number] Acct: [id number] Name: MILDRED DIAS Rep #: [id number] : 1995 26 From: Tiny SIMPSON/Jackeline, CHT Referring : Status: REG RCR [facility]: [facility] LAUREEN LOMBARDO, It has been my pleasure to treat MILDRED DIAS over the last 6 visits for left SF phalanx fx with FDP.FDS zone 2-5 tendon laceration. Please see the progress note below for an update on the occupational therapy plan of care! Subjective: pt arrives 6 weeks s/p from Flexor tendon repair with fx of proximal fx. pt states he feels work is good-. feeling like his hand is moving well. Objective/Function: left PIP -45/60* prior to therapy today following -40/ 65*. left MCP 0/95*. pt demo with scar adhesions FDP and FDS. therapy is performing blocking /reverse blocking and scar mtg to gain ROM with min. results in ROM. therapist ed. pt on need to perform ex. often even when at work. as well as importance of hook fist. pt demo understanding Plan Frequency: 2-3x /Week Duration: 4-6 Weeks Visits in this POC: 9 OT visit C9 approval for TE ([id number]), TA ([id number]) NR ([id number]) MT (03210) Plan: Week 5 s/p d/c splint Add blocking exercises but. No resistance until week 8 post-op. Goals - Goals Patient Goals: Regain Mobility, Use Hand/Wrist/Arm Normally Again, Be More Independent in ADLS Goal:100% adherence to protocol: Yes Goal:Daily scar massage when approriate: Yes Goal:ROM equal to unaffected hand: Yes Goal:Copy Holder/Pinch strength at least 75% of unaffected hand: Yes Goal:No pain with affected hand use: Yes Goal:PIP Circumferences equal to unaffected hand: Yes Goal:Full use of affected hand in daily activities including: Yes Goal:Decrease scar hypersensitivity: Yes Anticipated Interventions Anticipated Interventions: A/AAROM/PROM, Strengthening, Edema Control, Scar Care, Triggerpoint Release, Sensory Retraining, Wound Care, Modalities, Orthoses, Ergonomic Education, Fine Motor Coord/Tsuhar, Neuro Reeducation, Education re assistive Equipment, Education re Diagnosis, Home Program Please do not hesitate to contact me at [phone] by phone or if you have questions or concerns regarding this new plan of care! Sincerely, Tiny Caal OTR/L, CHT 10/05/22 1127 CC: LAUREEN LOMBARDO; Dr. Sudhakar Eng MD MK Signed For Medicare only, by signing this I certify the plan of care. ____ Physicians Signature Date Normal [facility] OT General Evaluationon 09-03 OT General Evaluation [facility] Occupational Therapy [facility] [address] [place] [address] / REHABILITATION SERVICES INITIAL EVALUATION MR#: [id number] Acct: [id number] Name: MILDRED DIAS Rep #: [id number] : 1995 26 From: Tiny WARREN CHT Referring Dr.: OUT OF TOWN DOCTOR Status: REG R CR [facility] Eval Date: [facility] Patient's Visit Information MILDRED DIAS is a 26 year old M, referred to Occupational Therapy by LAUREEN LOMBARDO, with a diagnosis of left SF phalanx fx with FDP.FDS zone 2-5 tendon laceration. Date of Evaluation: 09/20/22 Occupational Therapist: Tiny Caal, BRIANA, CHT - Subjective This 26 year old male was seen for OT eval with dx of left small finger volar laceration, left small finger FDS laceration zone II, left small finger FDP laceration zone II , left small finger radial nerve digital nerve laceration- open comminuted intra-articular fx of left small finger Middle phalanx. DOI 08/18/22 and sx repair on 08/24/23. Pt states some sensation on radial side of his LF. 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 pt is left handed- pt would like to return to his PLOF. - Pain left hand 3 - ROM Wrist: right 75/60 left 65/50 MP: left SF 0/60 PIP: left SF -40/45 DIP: left SF 0 ROM Comments: right WNL. pt incision clean and dry volar stitches intact - Strength Copy Holder: right 130# left NT Lateral Pinch: right 14 left NT Tripod Pinch: right 12# left NT Strength Comments: will test left blood coordinator/pinch strength at later date - Edema PIP: right SF 6.0 left 7.0 - Sensation Sensation Comments: radial side of left SF tingling feeling tip of SF denies deficits - Quick DASH-Disab of Arm,Shoulder Hand Quick DASH Score: 70.0000 - Goals Goal:100% adherence to protocol: Yes Comment: Flexor tendon zone 2-5 protocol Goal:Daily scar massage when approriate: Yes Goal:ROM equal to unaffected hand: Yes Goal:Copy Holder/Pinch strength at least 75% of unaffected hand: Yes Comment: not to initiate until week [address] indicates Goal:No pain with affected hand use: Yes Goal:PIP Circumferences equal to unaffected hand: Yes Goal:Full use of affected hand in daily activities including: Yes Goal:Decrease scar hypersensitivity: Yes - Rehabilitation General Assessment: pt arrives 3 weeks and 6 days s/p from FDP,FDS repair zone 2-5, Volar plate arthroplasty (pinning PIP in flexion). PT arrives with pin removed and orthosis cut down to hand based. pt demo with a decrease in ROM, pain and newly healing structures limiting use of left UE with ADLs and IADLs. pt would benefit from skilled OT services 2-3 x week for 6-8 weeks. Today therapist review 3 fist positions ex, wrist ROM, scar mtg and cleaning of hand and orthosis. therapist also ed. pt on protocol guidelines pt demo understanding and agree to POC. Rehabilitation Potential: Good - Anticipated Interventions A/AAROM/PROM, Strengthening, Edema Control, Scar Care, Triggerpoint Release, Sensory Retraining, Wound Care, Modalities, Orthoses, Ergonomic Education, Fine Motor Coord/Tushar, Neuro Reeducation, Education re assistive Equipment, Education re Diagnosis, Home Program - Visit Plan Frequency: 2-3x /Week Duration: 4-6 Weeks General Plan: Week 4 s/p hand based splint initiate active exercises in all 3 fist positions. Week 5 s/p d/c splint Add blocking exercises but No resistance until week 8 post-op. TEXT: Thank you for the opportunity to evaluate your patient. For Medicare and Medicare HMO plans, please review the plan of care and approve it. It will need to be FAXED BACK to us at [phone] for Medicare purposes. Please let me know if there are questions or concerns regarding this plan of care. Physician Signature: Date: ____ 09/21/22 0747 CC: LAUREEN LOMBARDO; Dr. Sudhakar Eng MD MK Signed For Medicare only, by signing this I certify the plan of care. ____ Physicians Signature [facility] Office Visit (ORMMMB ) -------- MILDRED DIAS ([id number]) 1995 M Date Time Provider Department 08/21/22 1:00 PM [facility] During your visit today, we recorded the following information about you: Pulse Weight Height 94/minute 81.6 kg 1.803 m Laureen Lombardo MD 09/11/2022 11:52 AM Signed Laureen Calderon MD Hand AND Upper Extremity Surgery [address], [place] [address] [address], [address], [place] [address] [address] [facility], [address], [place] [address] [address], [address], [place] [address] OUTPATIENT VISIT SERVICE DATE: 08/21/2022 CHIEF COMPLAINT: Left small finger laceration HISTORY OF PRESENT ILLNESS: Mildred Dias is a Left Handed 26 year old male who presents for above chief complaint. Patient is here for ED Follow up. Patient does recall a specific injury. He was working on a window when a high-energy spring dislodged and he sustained a laceration over the volar radial aspect of the small finger near the PIP joint. He has been unable to flex the distal interphalangeal joint of the left small finger since the injury. He is also complaining of numbness and tingling to the radial aspect of the small finger. He does state that there was significant bleeding after the injury. Patient has a history of extensor tendon laceration on the contralateral hand that required extensive therapy as well. Symptoms aggravated by: Attempted motion of the left small finger Occupation/Activities: [employer] PMDP report reviewed and All prescriptions have been APPROPRIATELY filled. No suspicious activity was identified. SUPPLEMENTAL DATA REVIEWED: Most recent imaging and ED visit notes History is obtained from: patient Reviewed nursing note and current pain scale. PAST MEDICAL HISTORY Diagnosis Date ADD (attention deficit disorder) Patient states this was in elementary school PMH - PAST MEDICAL HISTORY OF Color Vision - Good PAST SURGICAL HISTORY Procedure Laterality Date CIRCUMCISION @ COSMETIC EAR LOBE REPAIR 11/02/2011 REPAIR FINGER TENDON 10/04/2011 right middle finger FAMILY HISTORY Problem Relation Age of Onset None Mother None Father other (Respiratory problems) Maternal Grandmother Unsure of exact disease Heart Maternal Grandfather AK @ age 27 years Asthma Sister Social History Tobacco Use Smoking status: Former Packs/day: 1.50 Years: 9.00 Pack years: 13.50 Types: Cigarettes Quit date: 09/03/2018 Years since quittin.0 Smokeless tobacco: Never Substance Use Topics Alcohol use: No Drug use: No MEDICATIONS: No current outpatient medications on file. No current facility-administered medications for this visit. ALLERGIES: ALLERGIES No Known Allergies PHYSICAL EXAM: VITAL SIGNS: Pulse 94 Ht 5' 11 (1.80m) Wt 180 lb (81.6kg) SpO2 97% BMI 25.12 kg/(m2). GENERAL: The patient is well developed and well nourished, awake, alert, and oriented with appropriate mood and affect. Normal gait and station. SKIN: The skin over the left hand shows no rash lesion or erythema, and that is comparable to the contralateral hand. No ecchymosis noted over the dorsum of the hand and finger. There is a well approximated laceration over the radial aspect of the left small finger at the volar proximal phalanx. INSPECTION/PALPATION: There is no obvious asymmetry compared to the contralateral hand. No palpable defects. There is generalized swelling about the left small finger. No palpable joint effusion. TENDERNESS: There is tenderness to palpation over the left small finger PIP joint. ROM: No rotational deformity noted with active flexion. There is no intact flexion at the PIP or DIP joints. There is intact flexion at the MP joint. LIGAMENTS: Defered due to known fracture. MUSCLE: Strength testing deferred due to known fracture. No atrophy present. NEURO: The patient reports decreased sensation to the digit over the radial aspect of the finger. VASCULAR: Strong radial pulse. Excellent capillary refill to all digits. IMAGING PER MY INTERPRETATION: X-rays of the left small finger from outpatient [facility] radiology were reviewed and demonstrate comminuted fracture of the base of the middle phalanx with greater than 50% of the joint involved. There is no supriya dislocation due to the flexed posture of the small finger in this imaging. However it is suspicious for an unstable injury given the pattern. ASSESSMENT AND PLAN: (S61.210A) Laceration of left little finger with foreign body without damage to nail, initial encounter (primary encounter diagnosis) (S62.627B) Displaced fracture of middle phalanx of left little finger, initial encounter for open fracture (S64.40XA) Laceration of digital nerve of finger, initial encounter I reviewed the X-rays with the patient. I discussed with the patient that given their clin (more content not included)... Normal [facility] No Panel Informationon 08-21 [facility] XR DIGIT 3V FRONTAL/LAT/OBL LTon 08-21-2022 XR DIGIT 3V FRONTAL/LAT/OBL LT * * *Final Report* * * DATE OF EXAM: Aug 21 2022 1:45PM [id number] - XR DIGIT 3V FRONTAL/LAT/OBL LT / PROCEDURE REASON: Laceration of left little finger with foreign body without damage to nail, initi * * * * Physician Interpretation * * * * EXAMINATION / TECHNIQUE: XR DIGIT 3V FRONTAL/LAT/OBL LT PATIENT/TECHNOLOGIST PROVIDED HISTORY: LACERATION AND FX OF LT LITTLE FINGER CLINICAL INFORMATION ( PROVIDED BY ORDERING CLINICIAN) : Laceration of left little finger with foreign body without damage to nail, initial encounter COMPARISON: None RESULT: Acute, minimally displaced fracture of the fifth finger middle phalanx base with intra-articular extension. There is overlying soft tissue swelling with focal laceration along the radial aspect and tiny curvilinear density, likely a foreign body. No other fracture or dislocation. Joint spaces are maintained.. IMPRESSION: Acute minimally displaced fracture of the fifth finger middle phalanx base with overlying soft tissue laceration and tiny curvilinear density, likely a foreign body. Manufacturer'S Representative: PSCNaye Transcribe Date/Time: Aug 21 2022 1:55P Dictated by : ALFONSO CHANDLER MD This examination was interpreted and the report reviewed and electronically signed by: ALFONSO CHANDLER MD on Aug 21 2022 2:00PM EST [id number] Normal [facility] Absolute lymphocyte counton 08-18-2022 Lymphocytes Auto (Unsp spec) [#/Vol] 1.46 10*3/uL 0.83-4.51 [facility] Work Phone: Basic Metabolic Profile (BMP )on 08-18-2022 BUN/CRE 15.5 RATIO Normal 10-20 [facility] Comment on above: Performed By: #### L 500.2500, L100.0100 #### [facility] Laboratory [address] [place], [address] CA,Total 9.0 mg/dL Normal 8.5-10.1 [facility] Comment on above: Performed By: #### L 500.2500, L100.0100 #### [facility] Laboratory [address] [facility] [place], [address] Chloride [Moles/Vol] 107 mmol/L Normal 98-107 [facility] Comment on above: Performed By: #### L 500.2500, L100.0100 #### [facility] [address] [place], [address] CO2 [Moles/Vol] 30.0 mmol/L Normal 21.0-32.0 [facility] Comment on above: Performed By: #### L 500.2500, L100.0100 #### [facility] [address] [place], [address] Creatinine [Mass/Vol] 1.03 mg/dL Normal 0.70-1.30 [facility] Comment on above: Result Comment: The validity of the calculated GFR GFRAA in patients over 70 years has not been determined. Clinical correlation is essential. Performed By: #### L 500.2500, L100.0100 #### [facility] [address] [place], [address] ECRCL 116.77 ml/min Normal [facility] Comment on above: Performed By: #### L 500.2500, L100.0100 #### [facility] [address] [place], [address] EST GFR - AA 112 mL/min Normal >60 [facility] Comment on above: Result Comment: Afri can Dominican GFR Calc Performed By: #### L 500.2500, L100.0100 #### [facility] [address] [place], [address] GAP 3 Low 5-15 [facility] Comment on above: Performed By: #### L 500.2500, L100.0100 #### [facility] [address] [place], [address] GFR/1.73 sq M.predicted among non-blacks MDRD (S/P/Bld) [Vol rate/Area] 93 mL/min/{1.73_m2} Normal >60 [facility] Comment on above: Result Comment: Non- GFR Calc Performed By: #### L 500.2500, L100.0100 #### [facility] [address] [place], [address] Glucose [Mass/Vol] 97 mg/dL Normal 74-106 [facility] Comment on above: Performed By: #### L 500.2500, L100.0100 #### [facility] [address] [place], [address] Potassium [Moles/Vol] 3.8 mmol/L Normal 3.5-5.1 [facility] Comment on above: Performed By: #### L 500.2500, L100.0100 #### [facility] [address] [place], [address] Sodium [Moles/Vol] 140 mmol/L Normal 136-145 [facility] Comment on above: Performed By: #### L 500.2500, L100.0100 #### [facility] [address] [place], [address] Urea nitrogen [Mass/Vol] 16 mg/dL Normal 7-18 [facility] Comment on above: Performed By: #### L 500.2500, L100.0100 #### [facility] [address] [place], [address] Basophil percentageon -- 2021 Basophils/100 WBC (Bld) 0.7 % 0-1 [facility] Work Phone: Chloride [Moles/Vol] 107 mmol/L 98-107 [facility] Work Phone: Eosinophils/100 WBC (Bld) 1.5 % 0-5 [facility] Work Phone: Glucose [Mass/Vol] 97 mg/dL 74-106 [facility] Work Phone: Neutrophils (Bld) [#/Vol] 4.9 10*3/uL 2.0-7.7 [facility] Work Phone: Neutrophils/100 WBC (Bld) 65.3 % 47-70 [facility] Work Phone: Potassium [Moles/Vol] 3.8 mmol/L 3.5-5.1 [facility] Work Phone: Sodium [Moles/Vol] 140 mmol/L 136-145 [facility] Work Phone: [phone] WBC (Bld) [#/Vol] 7.5 10*3/uL 4.4-11.0 [facility] Work Phone: [phone] Blood erythrocytes count (nu mber/volume)on 08-18-2022 RBC (Bld) [#/Vol] 5.09 10*6/uL 4.6-6.2 [facility] Work Phone: [phone] Blood hemoglobin measurement (mass/volume)on 08-18-2022 Hemoglobin (Bld) [Mass/Vol] 13.9 g/dL 13.0-16.5 [facility] Work Phone: [phone] Blood lymphocytes/100 leukoc yteson 08-18-2022 Lymphocytes/100 WBC (Bld) 19.5 % 19-41 [facility] Work Phone: [phone] Blood monocytes/100 leukocyt eson 08-18-2022 Monocytes/100 WBC (Bld) 12.7 % 0-10 [facility] Work Phone: [phone] Blood platelet mean volumeon 08-18-2022 Platelet mean volume (Bld) [Entitic vol] 10.2 fL 6.2-12.0 [facility] Work Phone: [phone] CBC W/Diff, Automatedon 08-03 Absolute Lymph 1.46 X10 3/uL Normal 0.83-4.51 [facility] Comment on above: Performed By: #### L 500.2500, L100.0100 #### [facility] [address] [place], [address] Absolute Neut 4.9 X10 3/uL Normal 2.0-7.7 [facility] Comment on above: Performed By: #### L 500.2500, L100.0100 #### [facility] [address] [place], [address] Basophils/100 WBC (Bld) 0.7 % Normal 0-1 [facility] Comment on above: Performed By: #### L 500.2500, L100.0100 #### [facility] [address] [place], [address] Eosinophils/100 WBC (Bld) 1.5 % Normal 0-5 [facility] Comment on above: Performed By: #### L 500.2500, L100.0100 #### [facility] [address] [place], [address] Erythrocyte distribution width (RBC) [Ratio] 12.1 % Normal 11.6-14.6 [facility] Comment on above: Performed By: #### L 500.2500, L100.0100 #### [facility] [address] [place], [address] Hematocrit (Bld) [Volume fraction] 40.5 % Normal 40-54 [facility] Comment on above: Performed By: #### L 500.2500, L100.0100 #### [facility] [address] [place], [address] Hemoglobin (Bld) [Mass/Vol] 13.9 g/dL Normal 13.0-16.5 [facility] Comment on above: Performed By: #### L 500.2500, L100.0100 #### [facility] [address] [place], [address] IG% 0.300 Normal 0.0-0.9 [facility] Comment on above: Result Comment: IG% - Immature Granulocytes (promyelocytes, myelocytes and metamyelocytes) > 1% indicates that a LEFT SHIFT is Present. Performed By: #### L 500.2500, L100.0100 #### [facility] [address] [place], [address] Lymphocytes/100 WBC (Bld) 19.5 % Normal 19-41 [facility] Comment on above: Performed By: #### L 500.2500, L100.0100 #### [facility] [address] [place], [address] MCH (RBC) [Entitic mass] 27.3 pg Normal 27.0-32.0 [facility] Comment on above: Performed By: #### L 500.2500, L100.0100 #### [facility] [address] [place], [address] MCHC (RBC) [Mass/Vol] 34.3 g/dL Normal 32-36 [facility] Comment on above: Performed By: #### L 500.2500, L100.0100 #### [facility] [address] [place], [address] MCV (RBC) [Entitic vol] 79.6 fL Low 80-94 [facility] Comment on above: Performed By: #### L 500.2500, L100.0100 #### [facility] [address] [place], [address] Monocytes/100 WBC (Bld) 12.7 % High 0-10 [facility] Comment on above: Performed By: #### L 500.2500, L100.0100 #### [facility] [address] [place], [address] Neutrophils/100 WBC (Bld) 65.3 % Normal 47-70 [facility] Comment on above: Performed By: #### L 500.2500, L100.0100 #### [facility] [address] [place], [address] Nucleated RBC (Bld) [#/Vol] 0 10*3/uL Normal 0-5 [facility] Comment on above: Performed By: #### L 500.2500, L100.0100 #### [facility] [address] [place], [address] Platelet mean volume (Bld) [Entitic vol] 10.2 fL Normal 6.2-12.0 [facility] Comment on above: Performed By: #### L 500.2500, L100.0100 #### [facility] [address] [place], [address] Platelets (Bld) [#/Vol] 191 10*3/uL Normal 150-450 [facility] Comment on above: Performed By: #### L 500.2500, L100.0100 #### [facility] [address] [place], [address] RBC (Bld) [#/Vol] 5.09 10*6/uL Normal 4.6-6.2 [facility] Comment on above: Performed By: #### L 500.2500, L100.0100 #### [facility] [address] [place], [address] RDW SD 34.7 fl Low 35.1-43.9 [facility] Comment on above: Performed By: #### L 500.2500, L100.0100 #### [facility] [address] [place], [address] WBC (Bld) [#/Vol] 7.5 10*3/uL Normal 4.4-11.0 [facility] Comment on above: Performed By: #### L 500.2500, L100.0100 #### [facility] [address] [place], [address] Determination of erythrocyte mean corpuscular volume (MCV)on 08-18-2022 MCV (RBC) [Entitic vol] 79.6 fL 80-94 [facility] Work Phone: Emergency Department Summary on 08-18-2022 Emergency Department Summary [facility] Medical Records Department [address] [place] [address] Emergency Department Summary 08/18/22 MR#: [id number] Acct: [id number] Name: MILDRED DIAS Rep #: [id number] : 1995 26 From: Kenneth Daniels PCP: Dr. Sudhakar Eng MD Status:REG ER Location: ED HPI History of Present Illness Chief Complaint: Upper Extremity Injury Informant: patient Onset/Context/Timing Onset: Today Narrative Narrative: Left hand dominant male presents for left pinky injury occurring at work. Hypertension sprain release injuring his pinky finger. Happened at 3:30 PM. Tetanus more than years ago. No antibiotic allergies. States there is some numbness to his pinky. He cannot bend his finger. Remote tendon injury right middle finger extensor aspect more than 10 years ago requiring surgical repair at that time. Reported in the local area. Unaware home. No anticoagulation medicines. Bleeding controlled. Tetanus Immunization: 5-10 years [facility] Medical History (Updated 08/18/22 @ 20:[address] Kenneth Lama DO) ADD (attention deficit disorder) Asthma Chest pain COPD (chronic obstructive pulmonary disease) Erectile dysfunction Palpitations Home Medications cephalexin 500 mg capsule 500 mg PO Q6 #40 caps 08/18/22 [Rx Last Taken Unknown] hydrocodone-acetaminophe n 5-325mg 5mg-325mg 1 tab PO Q6H PRN pain 3 days #12 tabs 08/18/22 [Rx Last Taken Unknown] Allergy/AdvReac Type Severity Reaction Status Date / Time bismuth subsalicylate Allergy hives Verified 08/18/22 15:56 [From Pepto-Bismol] Family History Grandfather Myocardial infarction age 27 Sister Asthma Surgical History History of ear surgery ( 2011) Status post tendon repair ( 2011) Social History Smoking Status: Never smoker how long ago did patient quit smokin months ago alcohol intake: current alcohol intake frequency: a few times a month substance use type: former substance user Date of last use: 2017 caffeine: Yes (occasionally) ROS ROS ED Constitutional Constitutional ED: Denies chills, fever(s) or sweats Eyes Eyes: Denies change in vision ENT ENT ED: Denies dysphagia or sore throat Cardiovascular Cardiovascular: Denies chest pain, leg edema, palpitations or racing heartbeat Respiratory/Chest Respiratory/Chest: Denies cough, dyspnea or dyspnea on exertion Gastrointestinal Gastrointestinal: Denies abdominal pain, diarrhea, nausea or vomiting Genitourinary Genitourinary ED: Denies dysuria, hematuria or urinary frequency Musculoskeletal Musculoskeletal: Reports extremity pain; Denies back pain or neck pain Integumentary Reports wounds; Denies rash Neurologic Neurologic: Denies headache(s), paresthesias or weakness EXAM Physical Exam Const Vital Signs: 08/18/22 15:54 Temperature 97.6 F L Temperature Source Temporal Pulse Rate 102 H Respiratory Rate 16 Blood Pressure 157/99 H Blood Pressure Mean 118 Pulse Ox 98 Oxygen Delivery Method Room Air Positive well nourished and well developed General Appearance ED: well developed and NAD HEENT Reports moist mucous membranes normocephalic and atraumatic Eyes PERRL, EOMs intact bilaterally and conjunctivae normal General Eye ED: Yes normal appearance of both eyes Neck no lymphadenopathy and supple General: Negative for tenderness Chest Wall Chest: Negative for tenderness Resp normal respiratory effort and normal air movement Effort and Inspection: symmetric chest movement; Negative for respiratory distress Cardio regular rate, regular rhythm and no murmurs Peripheral Pulses: pulses 2+ throughout GI normal to inspection, nondistended, normoactive bowel sounds and non-tender Palpation: Negative for guarding or rebound tenderness present Back/Spine no CVA tenderness and no thoracic nor lumbar tenderness Extremity Extremity Narrative: Left hand dark debris around the hands. Pinky finger there is a volar laceration radial aspect PIP down to the proximal phalanx. No active bleeding. Patient unable to flex at the PIP or the DIP joint. No deformities. Ring finger noted small abrasions distal phalanx proximal to the nailbed. No active bleeding or deformities. General Extremety ED: Yes tenderness; Negative for edema General Extremity: Negative for edema Neuro oriented x3 and no sensory deficits noted Sensorium / Orientation: awake and alert Skin Skin Narrative: See above MDM MDM MDM Narrative Medical decision making narrative: 4 view x-rays of left hand was obtained through triage this was reviewed by myself read by radiology concerns for comminuted PIP fracture of the pinky joint. Ring was noted on th (more content not included)... Normal [facility] Hand Min 3 Viewson 2 Hand Min 3 Views [facility] Imaging Services [address] [place] [address] Hand Min 3 Views MR#: [id number] Acct: [id number] Name: MILDRED DIAS Rep #: [id number] : 1995 M 26 From: Zenon Wolf MD PCP: Dr. Sudhakar Eng MD Status: PRE ER Study: Hand Min 3 Views Date of Exam: 08/18/22 Exam# [id number] Ordering Dr: Provider,Ed P. INDICATION: trauma EXAMINATION/TECHNIQUE: X-RAY - LEFT XR Hand Min 3 Views 4 VIEWS COMPARISON: None. FINDINGS: SOFT TISSUES: Soft tissue swelling about the fifth PIP joint. 1 mm radiodense foreign body in the soft tissues lateral to the fifth PIP joint. BONES/JOINTS: Comminuted intra-articular fracture of the fifth middle phalanx at the PIP joint. Overall alignment near anatomic. . RAD/Hand Min 3 Views IMPRESSION: Comminuted intra-articular fracture at the fifth PIP joint. Small adjacent radiodense foreign body. Electronically Signed: Zenon Wolf MD at 16:36 EST Reading Location ID and State: [address] [place] [address] Tel , Service support , CC: Dr. Sudhakar Eng MD; ED PHYSICIAN PROVIDER Manufacturer'S Representative: Signed Normal [facility] Hematocrit Auto (Bld) [Volum e fraction]on 08-18-2022 Hematocrit (Bld) [Volume fraction] 40.5 % 40-54 [facility] Work Phone: Laboratory - Chemistry and C hemistry - challengeon 08-18-2022 CO2 [Moles/Vol] 30.0 mmol/L 21.0-32.0 [facility] Work Phone: Urea nitrogen/Creatinine [Mass ratio] 15.5 mg/mg 10- [facility] Work Phone: Laboratory - Hematology and Cell countson 08-18-2022 Erythrocyte distribution width (RBC) [Entitic vol] 34.7 fL 35.1-43.9 [facility] Work Phone: Erythrocyte distribution width (RBC) [Ratio] 12.1 % 11.6-14.6 [facility] Work Phone: Immature granulocytes/100 WBC (Bld) 0.300 % 0.0-0.9 [facility] Work Phone: Comment on above: IG% - Immature Granu locytes (promyelocytes, myelocytes and metamyelocytes) > 1% indicates that a LEFT SHIFT is Present. MCH (RBC) [Entitic mass] 27.3 pg 27.0-32.0 [facility] Work Phone: Nucleated RBC/100 WBC (Bld) [Ratio] 0 % 0-5 [facility] Work Phone: MCHC Auto (RBC) [Mass/Vol]on 08-18-2022 MCHC (RBC) [Mass/Vol] 34.3 g/dL 32-36 [facility] Work Phone: No Panel Informationon 08-18 Estimated Creatinine Clearance Calc 116.77 ml/min [facility] Work Phone: Estimated GFR (MDRD) Amer 112 mL/min >60 [facility] Work Phone: Comment on above: GFR Calc Estimated GFR (MDRD) Non-Af Amer 93 mL/min >60 [facility] Work Phone: Comment on above: Non- GFR Calc Platelets bldon 08-18-2022 Platelets (Bld) [#/Vol] 191 10*3/uL 150-450 [facility] Work Phone: Serum or plasma calcium sofía urement (mass/volume)on 08-18-2022 Calcium [Mass/Vol] 9.0 mg/dL 8.5-10.1 [facility] Work Phone: Serum or plasma creatinine m easurement (mass/volume)on 08-18-2022 Creatinine [Mass/Vol] 1.03 mg/dL 0.70-1.30 [facility] Work Phone: Comment on above: The validity of the calculated GFR & GFRAA in patients over 70 years has not been determined. Clinical correlation is essential. Serum or plasma urea nitroge n measurement (mass/volume)on 08-18-2022 Urea nitrogen [Mass/Vol] 16 mg/dL 7-18 [facility] Work Phone: Thin prep Papanicolaou smear with manual screeningon 08-18-2022 Thin prep Papanicolaou smear with manual screening 3 -15 [facility] Work Phone: Vital Signs Date Time Vital Sign Value Performing Clinician Facility 11-06-2024 09:18-0500 Body mass index (BMI) [Ratio] 28.17 kg/m2 Narda Torres APRN.[employer]ANT [employer] MA[employer] Work Phone: [facility] 11-06-2024 09:18-0500 Body temperature 98.4 [degF] Narda Torres APRN.[facility] Work Phone: [facility] 11-06-2024 09:18-0500 Body weight 91.6 kg Narda Torres APRN.[employer]ANT [employer] MANAGER Work Phone: [facility] 11-06-2024 09:18-0500 Diastolic blood pressure 85 mm[Hg] Narda Torres APRN.[employer]ANT [employer] MANAGER Work Phone: [facility] 11-06-2024 09:18-0500 Heart rate 86 /min Narda Torres APRN.[employer]ANT [employer] MANAGER Work Phone: [facility] 11-06-2024 09:18-0500 Respiratory rate 18 /min Narda Torres APRN.[employer]ANT [employer] MANAGER Work Phone: [facility] 11-06-2024 09:18-0500 SaO2% (BldA) [Mass fraction] 98 % Narda Torres APRN.[employer]ANT [employer] MANAGER Work Phone: [facility] 11-06-2024 09:18-0500 Systolic blood pressure 122 mm[Hg] Narda Torres 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.ASSISTANT FITNESS MANAGER Work Phone: [facility] 07-11-2024 11:44-0500 Body mass index (BMI) [Ratio] 27.52 kg/m2 Yulia Ferrer 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.ASSISTANT FITNESS MANAGER Work Phone: [facility] 07-11-2024 11:44-0500 Body temperature 97.7 [degF] Yulia Ferrer 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.ASSISTANT FITNESS MANAGER Work Phone: [facility] 07-11-2024 11:44-0500 Body weight 89.5 kg Yulia Ferrer 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.ASSISTANT FITNESS MANAGER Work Phone: [facility] 07-11-2024 11:44-0500 Diastolic blood pressure 84 mm[Hg] Yulia Ferrer 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.ASSISTANT FITNESS MANAGER Work Phone: [facility] 07-11-2024 11:44-0500 Heart rate 76 /min Yulia Ferrer 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.ASSISTANT FITNESS MANAGER Work Phone: [facility] 07-11-2024 11:44-0500 Respiratory rate 18 /min Yulia Ferrer 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.ASSISTANT FITNESS MANAGER Work Phone: [facility] 07-11-2024 11:44-0500 SaO2% (BldA) [Mass fraction] 98 % Yulia Ferrer 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.ASSISTANT FITNESS MANAGER Work Phone: [facility] 07-11-2024 11:44-0500 Systolic blood pressure 126 mm[Hg] Yulia Ferrer 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.ASSISTANT FITNESS MANAGER Work Phone: [facility] 08-01-2023 11:52-0500 Body temperature 98.01 [degF] Morgan Lora 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.ASSISTANT FITNESS MANAGER Work Phone: [facility] 08-01-2023 11:52-0500 Body weight 87.82 kg Morgan Lora 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.ASSISTANT FITNESS MANAGER Work Phone: [facility] 08-01-2023 11:52-0500 Diastolic blood pressure 84 mm[Hg] Morgan Lora 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.ASSISTANT FITNESS MANAGER Work Phone: [facility] 08-01-2023 11:52-0500 Heart rate 101 /min Morgan Lora 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.ASSISTANT FITNESS MANAGER Work Phone: [facility] 08-01-2023 11:52-0500 Respiratory rate 16 /min Morgan Lora 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.ASSISTANT FITNESS MANAGER Work Phone: [facility] 08-01-2023 11:52-0500 SaO2% (BldA) [Mass fraction] 96 % Morgan Lora 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.ASSISTANT FITNESS MANAGER Work Phone: [facility] 08-01-2023 11:52-0500 Systolic blood pressure 136 mm[Hg] Morgan Lora 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.ASSISTANT FITNESS MANAGER Work Phone: [facility] 06-25-2023 13:21-0400 Body height 180.3 cm Laureen Lombardo MD Work Phone: [facility] 06-25-2023 13:21-0400 Body weight 81.65 kg Laureen Lombardo MD Work Phone: [facility] 06-25-2023 13:21-0400 Heart rate 78 /min Laureen Lombardo MD Work Phone: [facility] 06-25-2023 13:21-0400 SaO2% (BldA) [Mass fraction] 98 % Laureen Lombardo MD Work Phone: [facility] 04-17-2023 12:56-0400 Body height 180.3 cm Laureen Lombardo MD Work Phone: [facility] 04-17-2023 12:56-0400 Body weight 85.28 kg Laureen Lombardo MD Work Phone: [facility] 04-17-2023 12:56-0400 Respiratory rate 18 /min Laureen Lombardo MD Work Phone: [facility] 02-06-2023 15:04-0400 Body height 180.3 cm Laureen Lombardo MD Work Phone: [facility] 02-06-2023 15:04-0400 Body weight 81.65 kg Laureen Lombardo MD Work Phone: [facility] 02-06-2023 15:04-0400 Respiratory rate 18 /min Laureen Lombardo MD Work Phone: [facility] 12-19-2022 15:44-0400 Body height 180.3 cm Laureen Lombardo MD Work Phone: [facility] 12-19-2022 15:44-0400 Body weight 81.65 kg Laureen Lombardo MD Work Phone: [facility] 12-19-2022 15:44-0400 Respiratory rate 18 /min Laureen Lombardo MD Work Phone: [facility] 11-07-2022 15:01-0500 Body height 180.3 cm Laureen Lombardo MD Work Phone: [facility] 11-07-2022 15:01-0500 Body weight 81.65 kg Laureen Lombardo MD Work Phone: [facility] 11-07-2022 15:01-0500 Respiratory rate 18 /min Laureen Lombardo MD Work Phone: [facility] 10-10-2022 13:57-0500 Body height 180.3 cm Laureen Lombardo MD Work Phone: [facility] 10-10-2022 13:57-0500 Body weight 81.65 kg Laureen Lombardo MD Work Phone: [facility] 10-10-2022 13:57-0500 Respiratory rate 18 /min Laureen Lombardo MD Work Phone: [facility] 09-05-2022 14:36-0500 Body height 180.3 cm Laureen Lombardo MD Work Phone: [facility] 09-05-2022 14:36-0500 Body weight 81.65 kg Laureen Lombardo MD Work Phone: [facility] 09-05-2022 14:36-0500 Respiratory rate 18 /min Laureen Lombardo MD Work Phone: [facility] 08-21-2022 12:58-0500 Body height 180.3 cm Laureen Lombardo MD Work Phone: [facility] 08-21-2022 12:58-0500 Body weight 81.65 kg Laureen Lombardo MD Work Phone: [facility] 08-21-2022 12:58-0500 Heart rate 94 /min Laureen Lombardo MD Work Phone: [facility] 08-21-2022 12:58-0500 SaO2% (BldA) [Mass fraction] 97 % Laureen Lombardo MD Work Phone: [facility] 08-18-2022 15:54-0500 Body height 180.34 cm [facility] Work Phone: 08-18-2022 15:54-0500 Body mass index (BMI) [Ratio] 25.1 kg/m2 [facility] Work Phone: 08-18-2022 15:54-0500 Body temperature 97.6 [degF] [facility] Work Phone: 08-18-2022 15:54-0500 Body weight 81.64 kg [facility] Work Phone: 08-18-2022 15:54-0500 Diastolic blood pressure 99 mm[Hg] [facility] Work Phone: 08-18-2022 15:54-0500 Heart rate 102 /min [facility] Work Phone: 08-18-2022 15:54-0500 Respiratory rate 16 /min [facility] Work Phone: 08-18-2022 15:54-0500 SaO2% (BldA) [Mass fraction] 98 % [facility] Work Phone: 08-18-2022 15:54-0500 Systolic blood pressure 157 mm[Hg] [facility] Work Phone: 04-30-2022 03:13-0400 Diastolic blood pressure 74 mm[Hg] [facility] Work Phone: 04-30-2022 03:13-0400 Heart rate 80 /min [facility] Work Phone: 04-30-2022 03:13-0400 Respiratory rate 17 /min [facility] Work Phone: 04-30-2022 03:13-0400 SaO2% (BldA) [Mass fraction] 98 % [facility] Work Phone: 04-30-2022 03:13-0400 Systolic blood pressure 136 mm[Hg] [facility] Work Phone: 04-30-2022 00:27-0400 Body mass index (BMI) [Ratio] 25.3 kg/m2 [facility] Work Phone: 04-30-2022 00:27-0400 Body temperature 98.4 [degF] [facility] Work Phone: 04-30-2022 00:27-0400 Body weight 82.4 kg [facility] Work Phone: 04-20-2022 11:47-0400 Body height 180.34 cm [facility] Work Phone: 04-20-2022 11:47-0400 Body mass index (BMI) [Ratio] 25.1 kg/m2 [facility] Work Phone: 04-20-2022 11:47-0400 Body temperature 97.1 [degF] [facility] Work Phone: 04-20-2022 11:47-0400 Body weight 81.64 kg [facility] Work Phone: 04-20-2022 11:47-0400 Diastolic blood pressure 70 mm[Hg] [facility] Work Phone: 04-20-2022 11:47-0400 Heart rate 77 /min [facility] Work Phone: 04-20-2022 11:47-0400 Respiratory rate 14 /min [facility] Work Phone: 04-20-2022 11:47-0400 SaO2% (BldA) [Mass fraction] 97 % [facility] Work Phone: 04-20-2022 11:47-0400 Systolic blood pressure 132 mm[Hg] [facility] Work Phone: 04-11-2022 19:38-0400 Body temperature 98.4 [degF] Morgan Guido 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.ASSISTANT FITNESS MANAGER Work Phone: [facility] 04-11-2022 19:38-0400 Body weight 83.37 kg Morgan Guido 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.ASSISTANT FITNESS MANAGER Work Phone: [facility] 04-11-2022 19:38-0400 Diastolic blood pressure 70 mm[Hg] Morgan Lora 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.ASSISTANT FITNESS MANAGER Work Phone: [facility] 04-11-2022 19:38-0400 Heart rate 103 /min Morgan Guido 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.ASSISTANT FITNESS MANAGER Work Phone: [facility] 04-11-2022 19:38-0400 Respiratory rate 16 /min Morgan Guido 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.ASSISTANT FITNESS MANAGER Work Phone: [facility] 04-11-2022 19:38-0400 SaO2% (BldA) [Mass fraction] 99 % Morgan Lora 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.ASSISTANT FITNESS MANAGER Work Phone: [facility] 04-11-2022 19:38-0400 Systolic blood pressure 118 mm[Hg] Morgan Lora 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.ASSISTANT FITNESS MANAGER Work Phone: [facility] Encounters Encounter Date Encounter Type Care Provider Facility Start: 11-06-2024 End: 11-06-2024 ambulatory MICHELA ENG Facility:[facility] Start: 11-06-2024 End: 11-06-2024 Office outpatient visit 15 minutes Narda Torres 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.ASSI[employer]ANT FITNESS MANAGER Work Phone: [facility] Comment on above: Paronychia of left t humb (Primary Dx) Start: 07-11-2024 End: 07-11-2024 Subsequent hospital visit by physician Shade [facility] Work Phone: Radiology Comment on above: Acute cough [R05.1] Start: 07-11-2024 End: 07-11-2024 ambulatory MICHELA ENG Facility:[facility] Start: 07-11-2024 End: 07-11-2024 Patient encounter procedure Yulia Ferrer 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ANT FITNESS MANAGER Work Phone: [facility] Comment on above: Acute cough (Primary Dx); Rhinosinusitis Start: 08-01-2023 End: 08-01-2023 Patient encounter procedure Morgan Lora 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.ASSISTANT FITNESS MANAGER Work Phone: [facility] Comment on above: Paronychia of finger of left hand (Primary Dx) Start: 07-23-2023 End: 07-23-2023 ambulatory LAUREEN LOMBARDO Facility:[id number] Start: 07-23-2023 End: 07-23-2023 ambulatory Laureen Lombardo MD Work Phone: [facility] Comment on above: S/P surgical amputat ion of finger, left (Primary Dx) Start: 07-23-2023 End: 07-23-2023 Telemedicine consultation with patient Laureen Lombardo MD Work Phone: [facility] Start: 06-25-2023 End: 06-25-2023 ambulatory LAUREEN LOMBARDO Facility:[id number] Start: 06-25-2023 End: 06-25-2023 Patient encounter procedure Laureen Lombardo MD Work Phone: [facility] Comment on above: S/P surgical amputat ion of finger, left (Primary Dx) Start: 06-19-2023 End: 06-19-2023 ambulatory Sudhakar Eng [facility] Work Phone: Start: 06-19-2023 End: 06-19-2023 Discharged Recurring [facility] Work Phone: Start: 06-04-2023 End: 06-04-2023 ambulatory LAUREEN LOMBARDO Facility:[id number] Start: 05-23-2023 Preprocedural examination done Laureen Lombardo MD Work Phone: [facility] Work Phone: Start: 05-23-2023 End: 05-23-2023 ambulatory LAUREEN LOMBARDO Facility:[facility] Start: 05-02-2023 Orders Only Laureen hamilton MD Work Phone: [facility] Comment on above: Finger stiffness, le ft (Primary Dx); S/P tendon repair; S/P nerve repair Start: 04-17-2023 End: 04-17-2023 ambulatory Laureen Lombardo MD Work Phone: [facility] Comment on above: Finger stiffness, le ft (Primary Dx); S/P tendon repair; S/P nerve repair Start: 04-17-2023 End: 04-17-2023 Telemedicine consultation with patient Laureen Lombardo MD Work Phone: [facility] Start: 03-26-2023 End: 03-30-2023 ambulatory LAUREEN LOMBARDO Facility:[facility] Start: 03-16-2023 End: 03-17-2023 ambulatory JASON FORBES Facility:[facility] Start: 02-06-2023 End: 02-06-2023 ambulatory LAUREEN LOMBARDO Facility:[facility] Start: 02-06-2023 End: 02-06-2023 Patient encounter procedure Laureen Lombardo MD Work Phone: [facility] Comment on above: Post-operative state (Primary Dx); Finger stiffness, left Start: 01-17-2023 End: 01-17-2023 ambulatory Sudhakar Eng Facility:[facility] Start: 01-17-2023 End: 01-17-2023 ambulatory [facility] Work Phone: Start: 01-17-2023 End: 01-17-2023 Discharged Recurring [facility] Work Phone: Start: 01-16-2023 End: 01-16-2023 ambulatory LAUREEN LOMBARDO Facility:[facility] Start: 12-19-2022 End: 12-19-2022 Patient encounter procedure Laureen Lombardo MD Work Phone: [facility] Comment on above: Post-operative state (Primary Dx); Finger stiffness, left Start: 11-28-2022 Orders Only Laureen hamilton MD Work Phone: [facility] Comment on above: Finger stiffness, le ft (Primary Dx) Start: 11-07-2022 End: 11-07-2022 Patient encounter procedure Laureen Lombardo MD [facility] Phone[facility] Comment on above: Finger stiffness, le ft (Primary Dx); S/P ORIF (open reduction internal fixation) fracture; S/P tendon repair; S/P nerve repair; Tobacco abuse Start: 10-10-2022 End: 10-10-2022 Patient encounter procedure Laureen Lombardo MD Work Phone: [facility] Comment on above: S/P ORIF (open reduc tion internal fixation) fracture (Primary Dx); S/P tendon repair; S/P nerve repair Start: 09-19-2022 End: 09-19-2022 ambulatory Kiara Nj OTR/L Work Phone: [facility] Comment on above: Laceration of left l ittle finger with foreign body without damage to nail, subsequent encounter (Primary Dx) Start: 09-05-2022 End: 09-05-2022 ambulatory Kiara Nj OTR/L Work Phone: [facility] Comment on above: Laceration of left l ittle finger with foreign body without damage to nail, subsequent encounter (Primary Dx) Start: 09-05-2022 End: 09-05-2022 Patient encounter procedure Laureen Lombardo MD Work Phone: [facility] Comment on above: Laceration of left l ittle finger with foreign body without damage to nail, subsequent encounter (Primary Dx); S/P tendon repair; S/P ORIF (open reduction internal fixation) fracture; S/P nerve repair Start: 08-29-2022 End: 08-29-2022 ambulatory Maki Casas OTR/L Work Phone: [facility] Comment on above: Pain in finger of le ft hand (Primary Dx); Decreased range of motion of finger of left hand Start: 08-21-2022 End: 08-21-2022 Orders Only Laureen Calderon MD Work Phone: [facility] Comment on above: Laceration of left l ittle finger with foreign body without damage to nail, initial encounter (Primary Dx); Open displaced fracture of middle phalanx of left little finger, initial encounter; Laceration of digital nerve of finger, initial encounter; Flexor tendon laceration of finger with open wound, initial encounter Laceration of left l ittle finger with foreign body without damage to nail, initial encounter [S61.227A] Laceration of left l ittle finger with foreign body without damage to nail, initial encounter (Primary Dx); Displaced fracture of middle phalanx of left little finger, initial encounter for open fracture; Laceration of digital nerve of finger, initial encounter Start: 08-18-2022 End: 08-18-2022 Emergency department patient visit Kenneth Lama Facility:[facility] Start: 08-18-2022 End: 08-18-2022 Emergency department patient visit [facility] Start: 04-30-2022 End: 04-30-2022 Emergency department patient visit [facility] Start: 04-20-2022 End: 04-20-2022 Emergency department patient visit [facility] Start: 04-11-2022 End: 04-11-2022 Patient encounter procedure Morgan Lora APRN.ASSISTANT FITNESS MANAGER Work Phone: [facility] Comment on above: Bilateral impacted c erumen (Primary Dx) Procedures Date Procedure Procedure Detail Performing Clinician Start: 07-11-2024 Radiologic exam ches t 2 views Edgar Kraft APRN.ASSISTANT FITNESS MANAGER Work Phone: Start: 05-23-2023 H/O: surgery S/P nerve repair Laureen Lombardo MD Work Phone: Start: 08-21-2022 Radex fingr minimum 2 views Laureen Calderon MD Work Phone: Start: 08-18-2022 Plain x-ray of hand Start: 04-20-2022 Plain chest X-ray H/O: surgery S/P tendon repair Laureen lopez MD Work Phone: H/O: surgery S/P tendon repair Laureen lopez MD Work Phone: H/O: surgery S/P tendon repair Laureen lopez MD Work Phone: H/O: surgery S/P tendon repair Laureen lopez MD Work Phone: H/O: surgery S/P tendon repair Laureen lopez MD Work Phone: History of amputatio n of finger S/P surgical amputation of finger, left Laureen Lombardo MD Work Phone: History of amputatio n of finger S/P surgical amputation of finger, left Laureen Lombardo MD Work Phone: Plan of Treatment Date Care Activity Detail Author Start: 08-18-2032 Urine microalbumin profile DTaP,Tdap,Td Vaccine (8 - Td or Tdap) [facility] Start: 05-04-2024 Covid-19 Vaccine ( season) Covid-19 Vaccine ( season) [facility] Start: 05-04-2024 Influenza vaccination Influenza Vacc ine (#1) [facility] Start: 05-04-2023 Influenza vaccination [facility] Start: 05-04-2022 Influenza vaccination INFLUENZA (#1) [facility] Start: 04-30-2022 Simple repair scalp/neck/ax/genit/trun k 2.5cm/< RPR S/N/AX/GEN/TRNK 2.5CM/< [facility] Work Phone: Start: 03-03-2018 Urine microalbumin profile DTAP,TDAP,TD (7 - Td or Tdap) [facility] Start: 2014 Anxiety Screening Anxiety Screening [facility] Start: 2014 HEPATITIS C SCREENING HEPATITIS C [facility] Start: 2014 Hepatitis C screening Hepatitis C [facility] Start: 2010 PEDS TO ADULT TRANSI TION ANNUAL ASSESSMENT PEDS TO ADULT TRANSITION ANNUAL ASSESSMENT [facility] Start: 2008 PEDS TO ADULT TRANSI TION INITIAL DISCUSSION PEDS TO ADULT TRANSITION INITIAL DISCUSSION [facility] Start: 04-22-1997 COVID-19 VACCINE (#1) COVID-19 VACCI NE (#1) [facility] Patient Education [facility] Work Phone: Patient referral [facility] Work Phone: XR DIGIT GENERAL 3V FRONTAL/LAT/OBL LEFT XR DIGIT GENERAL 3V FRONTAL/LAT/OBL LEFT Radiology Routine Laceration of left little finger with foreign body without damage to nail, subsequent encounter S/P tendon repair S/P ORIF (open reduction internal fixation) fracture S/P nerve repair Ordered: 09/05/2022 [facility] Work Phone: Comment on above: Ordered: 09/05/2022 XR DIGIT GENERAL 3V FRONTAL/LAT/OBL LEFT XR DIGIT GENERAL 3V FRONTAL/LAT/OBL LEFT Radiology Routine S/P ORIF (open reduction internal fixation) fracture Ordered: 10/10/2022 [facility] Work Phone: Comment on above: Ordered: 10/10/2022 XR DIGIT GENERAL 3V FRONTAL/LAT/OBL LEFT XR DIGIT GENERAL 3V FRONTAL/LAT/OBL LEFT Radiology Routine Post-operative state Finger stiffness, left Ordered: 02/06/2023 [facility] Work Phone: Comment on above: Ordered: 02/06/2023 [facility] Immunizations Immunization Date Immunization Notes Care Provider Khurram diamond 08-18-2022 tetanus toxoid, redu david diphtheria toxoid, and acellular pertussis vaccine, adsorbed [facility] 07-05-2016 tuberculin skin test ; purified protein derivative solution, intradermal Yulia Ferrer APRN.CNP Work Phone: [facility] 02-04-2016 Human Papillomavirus 9-valent vaccine Morgan King HENRIQUEN.ASSISTANT FITNESS MANAGER Work Phone: [facility] 10-05-2015 Human Papillomavirus 9-valent vaccine Morgan Guido 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.ASSISTANT FITNESS MANAGER Work Phone: [facility] 08-03-2015 Human Papillomavirus 9-valent vaccine Morgan Guido 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.ASSISTANT FITNESS MANAGER Work Phone: [facility] 08-03-2015 influenza, injectabl e, quadrivalent, contains preservative Morgan King CAS.ASSISTANT FITNESS MANAGER Work Phone: [facility] 08-03-2015 meningococcal polysaccharide (groups A, C, Y and W-135) diphtheria toxoid conjugate vaccine (MCV4P) Morgan Lora APRN.ASSISTANT FITNESS MANAGER Work Phone: [facility] 08-03-2015 influenza virus vacc ine, unspecified formulation Laureen Lombardo MD Work Phone: [facility] 03-04-2009 varicella virus vaccine Saúl rene King CAS.ASSISTANT FITNESS MANAGER Work Phone: [facility] Work Phone: 02-24-2009 Meningococcal, MCV4, unspecified conjugate formulation(groups A, C, Y and W-135) Morgan King CAS.ASSISTANT FITNESS MANAGER Work Phone: [facility] Work Phone: 07-06-2008 influenza virus vacc ine, unspecified formulation Morgan Lora APRN.ASSISTANT FITNESS MANAGER Work Phone: [facility] Work Phone: 03-03-2008 tetanus toxoid, redu david diphtheria toxoid, and acellular pertussis vaccine, adsorbed Morgan Lora 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AK[employer].ASSISTANT FITNESS MANAGER Work Phone: [facility] Work Phone: 12-16-2001 measles, mumps and rubella virus vaccine Morgan 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.ASSISTANT FITNESS MANAGER Work Phone: [facility] Work Phone: 12-16-2001 poliovirus vaccine, inactivated Morgan Lora APRN.ASSISTANT FITNESS MANAGER Work Phone: [facility] Work Phone: 12-06-2001 diphtheria, tetanus toxoids and acellular pertussis vaccine Morgan Lora 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AK[employer].ASSISTANT FITNESS MANAGER Work Phone: [facility] Work Phone: 04-01-1998 varicella virus vaccine Saúl Lora 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AK[employer]ES.ASSISTANT FITNESS MANAGER Work Phone: [facility] Work Phone: 01-20-1998 diphtheria, tetanus toxoids and acellular pertussis vaccine Morgan Lora 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 [employer] COREMAKING [employer]ES.ASSISTANT FITNESS MANAGER Work Phone: [facility] Work Phone: 01-20-1998 poliovirus vaccine, inactivated Morgan Lora 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.[facility] Work Phone: [facility] Work Phone: 01-20-1998 trivalent poliovirus vaccine, live, oral Morgan Guido 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.[facility] Work Phone: [facility] Work Phone: 10-19-1997 measles, mumps and rubella virus vaccine Morgan Lora 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.[facility] Work Phone: [facility] Work Phone: 07-24-1997 hepatitis B vaccine, pediatric or pediatric/adolescent dosage Morgan Lora 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.[facility] Work Phone: [facility] Work Phone: 04-22-1997 diphtheria, tetanus toxoids and acellular pertussis vaccine Morgan Lora 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 [employer] COREMAKING [employer]ES.ASSISTANT FITNESS MANAGER Work Phone: [facility] Work Phone: 04-22-1997 haemophilus influenz ae type b vaccine, conjugate unspecified formulation Morgan Lora 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EMAK[employer]ES.ASSISTANT FITNESS MANAGER Work Phone: [facility] Work Phone: 02-20-1997 diphtheria, tetanus toxoids and acellular pertussis vaccine Morgan Lora 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 [employer]EMAK[employer]ES.ASSISTANT FITNESS MANAGER Work Phone: [facility] Work Phone: 02-20-1997 haemophilus influenz ae type b vaccine, conjugate unspecified formulation Morgan King 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 [employer] COREMAK[employer]ES.ASSISTANT FITNESS MANAGER Work Phone: [facility] Work Phone: 02-20-1997 poliovirus vaccine, inactivated Morgan King 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EMAK[employer]ES.ASSISTANT FITNESS MANAGER Work Phone: [facility] Work Phone: 1996 diphtheria, tetanus toxoids and acellular pertussis vaccine Morgan Lora 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 [employer] COREMAKING [employer]ACH[employer]ES.ASSISTANT FITNESS MANAGER Work Phone: [facility] Work Phone: 1996 haemophilus influenz ae type b vaccine, conjugate unspecified formulation Morgan King 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 [employer] COREMAKING [employer]ACH[employer]ES.ASSISTANT FITNESS MANAGER Work Phone: [facility] Work Phone: 1996 poliovirus vaccine, inactivated Morgan Lora 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 [employer] COREMAKING [employer]ACHINES.ASSISTANT FITNESS MANAGER Work Phone: [facility] Work Phone: 1996 hepatitis B vaccine, pediatric or pediatric/adolescent dosage Morgan Guido 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 [employer] COREMAKING MACHINES.ASSISTANT FITNESS MANAGER Work Phone: [facility] Work Phone: 1996 hepatitis B vaccine, pediatric or pediatric/adolescent dosage Morgan Guido 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 [employer] COREMAKING [employer]ACH[employer]ES.ASSISTANT FITNESS MANAGER Work Phone: [facility] Work Phone: Payers Date Payer Category Payer Self-pay [id number] 2022 Unknown [id number] 2022 Unknown [id number] 2022 Unknown [id number] 2020 Private Health Insurance [id number] 2020 Private Health Insurance [id number] 2020 Unknown [id number] 2015 [place] [employer] [place] [id number] 2010 Unknown [id number] Unknown [employer] [place] [id number] Unknown [id number] Unknown [id number] Unknown [id number] Unknown [id number] Social History Date Type Detail Facility Tobacco smoking stat us SDIS Unknown if ever smoked [facility] Work Phone: Start: 1996 Sex Assigned At Male W [facility] Start: 01-01-2019 End: 07-11-2024 Tobacco smoking status SDIS Ex-smoker [facility] Work Phone: Start: 09-03-2009 End: 09-03-2018 History of tobacco use Current smoker [facility] Work Phone: Start: 09-03-2009 End: 09-03-2018 History of tobacco use Cigarette Smoker [facility] Work Phone: Start: 01-01-2019 End: 01-16-2023 Cigarettes smoked current (pack per day) - Reported 1.5 [facility] Start: 01-01-2019 End: 07-11-2024 Tobacco use and exposure Smokeless tobacco non-user [facility] Work Phone: Start: 07-17-2021 End: 11-06-2024 Alcohol intake Current non-drinker of alcohol (finding) [facility] Start: 1995 Sex Assigned At Not on file C [facility] Start: 04-01-2022 End: 04-11-2022 Exposure to SARS-CoV-2 (event) Not sure [facility] Start: 04-20-2022 End: 08-18-2022 Tobacco smoking status NHIS Unknown if ever smoked [facility] Start: 01-16-2023 End: 04-17-2023 Tobacco use panel [facility] Adult Depression Screening Assessment 0 [facility] Medical Equipment Procedure Code Equipment Code Equipment Origin al Text Equipment Identifier Dates Low Profile Ramez ical Screw 1.0mm X 8mm [id number] Start: 08-24-2022 Functional Status Date Assessment Result Facility 12-20-2014 Are you deaf, or do you have serious difficulty hearing No 12/20/2014 12:22 PM Brigette Padilla RN No [facility] Work Phone: 12-20-2014 Are you blind, or do you have serious difficulty seeing, even when wearing glasses No 12/20/2014 12:22 PM Brigette Padilla RN No [facility] 12-20-2014 Do you have serious difficulty walking or climbing stairs No 12/20/2014 12:22 PM Brigette Padilla RN No [facility] 12-20-2014 Do you have difficul ty dressing or bathing No 12/20/2014 12:22 PM Brigette Padilla RN No [facility] 12-20-2014 Because of a physica l, mental, or emotional condition, do you have difficulty doing errands alone such as visiting a physician's office or shopping No 12/20/2014 12:22 PM Brigette Padilla RN No [facility] Mental Status Date Assessment Result Facility 04-20-2022 Cognitive function Voice/Name [facility] Work Phone: 12-20-2014 Because of a physica l, mental, or emotional condition, do you have serious difficulty concentrating, remembering, or making decisions No 12/20/2014 12:22 PM Brigette Padilla RN No [facility] Clinical Notes 04-11-2022 to 11-06-2024 Patient InstructionsNarda Torres APRN.ASSISTANT FITNESS MANAGER - 11/06/2024 9:24 AM Boris Russo RT(R) - 07/11/2024 12:10 PM Edgar Reynaga APRN.ASSISTANT FITNESS MANAGER - 07/11/2024 11:57 AM EST Note Date & Type Note Facility 11-06-2024 Instructions Noemí Edouard - 11/06/2024 9:35 AM EST ASSESSMENT/PLAN: 1. Paronychia of left thumb - ICD9: 681.02, ICD10: L03.012 - Begin treatment with Cephalaxin (Keflex) - No lymphangetic streaking, this was defined for patient to watch for and to seek medical care immediately if appears - recommended trying warm sitz bath to the extremity as well - CEPHALEXIN 500 MG CAPSULE documented in this encounter [facility] 11-06-2024 Note HNO ID: [id number] Author: NARDA TORRES APRN.ASSISTANT FITNESS MANAGER Service: ? Author Type: Nurse Practitioner Type: Progress Notes Filed: 11/06/2024 10:30 Note Text: [facility] Subjective Mildred Dias is a 29 year old male. HPI Pt is a 29 y/o male who presents with thumb swelling, erythema and tenderness x 2 days. Pt reports not noticeable injury to the thumb. There are no open wounds on the thumb. Pt reports that he has a history of cellulitis on this digit in the past and has required IV antibiotics. No reports of fever at home. Pt tried using mupirocin ointment last night, did not notice any improvement. Review of Systems Constitutional: Negative for chills, fatigue and fever. Skin: L thumb swollen, erythematous and tender Objective BP 122/85 Pulse 86 Temp 36.9 ?C (98.4 ?F) Resp 18 Wt 91.6 kg (201 lb 15.1 oz) SpO2 98% BMI 28.17 kg/m? PAST MEDICAL HISTORY Diagnosis Date - ADD (attention deficit disorder) Patient states this was in elementary school - Finger pain, left - PMH - PAST MEDICAL HISTORY OF Color Vision - Good PAST SURGICAL HISTORY Procedure Laterality Date - CIRCUMCISION @ - COSMETIC EAR LOBE REPAIR 11/02/2011 - HAND SURGERY HX Left 05/2023 Little Finger Amputation - PAST SURGICAL HISTORY OF Left 08/2022 5th digit ORIF - REPAIR FINGER TENDON 10/04/2011 right middle finger ALLERGIES Patient has no known allergies. MEDICATIONS - sertraline (ZOLOFT) 100 mg tablet Take 1 tablet by mouth once daily. - cephALEXin (KEFLEX) 500 mg capsule Take 1 capsule by mouth three times a day for 7 days. - sertraline (ZOLOFT) 50 mg tablet Take 1 tablet by mouth every afternoon. (Patient not taking: Reported on 11/06/2024) - acetaminophen 325 mg cap Take by mouth as needed. (Patient not taking: Reported on 07/11/2024) FAMILY HISTORY Problem Relation Age of Onset - None Mother - None Father - other (Respiratory problems) Maternal Grandmother Unsure of exact disease - Heart Maternal Grandfather [place] @ age 27 years - Asthma Sister Social History Tobacco Use - Smoking status: Former Current packs/day: 0.00 Average packs/day: 1.5 packs/day for 9.0 years (13.5 ttl pk-yrs) Types: Cigarettes Start date: 09/03/2009 Quit date: 09/03/2018 Years since quittin.1 - Smokeless tobacco: Never Substance Use Topics - Alcohol use: No - Drug use: No Physical Exam Constitutional: General: He is awake. Skin: Comments: Well demarcated erythema, swelling, warmth and tenderness of L thumb from the tip to the DIP joint. No signs of streaking. Neurological: Mental Status: He is alert. Assessment and Plan Differential Diagnoses - paronychia is more likely for the following reason(s): suggested by HANDP - gout is less likely for the following reason(s): HANDP not suggestive Additional Tests or Interventions The following testing was considered but ultimately not selected after discussion with patient/family: xray Disposition The patient was discharged. Procedures ASSESSMENT/PLAN: 1. Paronychia of left thumb - ICD9: 681.02, ICD10: L03.012 - Begin treatment with Cephalaxin (Keflex) - No lymphangetic streaking, this was defined for patient to watch for and to seek medical care immediately if appears - recommended trying warm sitz bath to the extremity as well - CEPHALEXIN 500 MG CAPSULE Noemí Edouard TEACHING PROVIDER (Physician/PA/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 AND COREMAKING MACHINES) NOTE OF PERSONAL INVOLVEMENT IN CARE: I have personally seen and examined the patient and performed the medical decision-making components. I have reviewed the Advanced Practice Registered Nurse (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 AND COREMAKING MACHINES) Student's documentation and verified the findings in the note as written. Any additions or changes are noted in bold/italics. Signature: Narda PinaghanshyamMike Date: 11/06/2024 Time: 10:27 AM [facility] 11-06-2024 History of Present illness Narrative [facility] Subjective Mildred Uyen Dias is a 29 year old male. HPI Pt is a 29 y/o male who presents with thumb swelling, erythema and tenderness x 2 days. Pt reports not noticeable injury to the thumb. There are no open wounds on the thumb. Pt reports that he has a history of cellulitis on this digit in the past and has required IV antibiotics. No reports of fever at home. Pt tried using mupirocin ointment last night, did not notice any improvement. Review of Systems Constitutional: Negative for chills, fatigue and fever. Skin: L thumb swollen, erythematous and tender Objective BP 122/85 Pulse 86 Temp 36.9 C (98.4 F) Resp 18 Wt 91.6 kg (201 lb 15.1 oz) SpO2 98% BMI 28.17 kg/m PAST MEDICAL HISTORY Diagnosis Date ADD (attention deficit disorder) Patient states this was in elementary school Finger pain, left PMH - PAST MEDICAL HISTORY OF Color Vision - Good PAST SURGICAL HISTORY Procedure Laterality Date CIRCUMCISION @ COSMETIC EAR LOBE REPAIR 11/02/2011 HAND SURGERY HX Left 05/2023 Little Finger Amputation PAST SURGICAL HISTORY OF Left 08/2022 5th digit ORIF REPAIR FINGER TENDON 10/04/2011 right middle finger ALLERGIES Patient has no known allergies. MEDICATIONS sertraline (ZOLOFT) 100 mg tablet Take 1 tablet by mouth once daily. cephALEXin (KEFLEX) 500 mg capsule Take 1 capsule by mouth three times a day for 7 days. sertraline (ZOLOFT) 50 mg tablet Take 1 tablet by mouth every afternoon. (Patient not taking: Reported on 11/06/2024) acetaminophen 325 mg cap Take by mouth as needed. (Patient not taking: Reported on 07/11/2024) FAMILY HISTORY Problem Relation Age of Onset None Mother None Father other (Respiratory problems) Maternal Grandmother Unsure of exact disease Heart Maternal Grandfather [place] @ age 27 years Asthma Sister Social History Tobacco Use Smoking status: Former Current packs/day: 0.00 Average packs/day: 1.5 packs/day for 9.0 years (13.5 ttl pk-yrs) Types: Cigarettes Start date: 09/03/2009 Quit date: 09/03/2018 Years since quittin.1 Smokeless tobacco: Never Substance Use Topics Alcohol use: No Drug use: No Physical Exam Constitutional: General: He is awake. Skin: Comments: Well demarcated erythema, swelling, warmth and tenderness of L thumb from the tip to the DIP joint. No signs of streaking. Neurological: Mental Status: He is alert. Assessment and Plan Differential Diagnoses - paronychia is more likely for the following reason(s): suggested by H&P - gout is less likely for the following reason(s): H&P not suggestive Additional Tests or Interventions The following testing was considered but ultimately not selected after discussion with patient/family: xray Disposition The patient was discharged. Procedures ASSESSMENT/PLAN: 1. Paronychia of left thumb - ICD9: 681.02, ICD10: L03.012 - Begin treatment with Cephalaxin (Keflex) - No lymphangetic streaking, this was defined for patient to watch for and to seek medical care immediately if appears - recommended trying warm sitz bath to the extremity as well - CEPHALEXIN 500 MG CAPSULE Noemí Edouard TEACHING PROVIDER (Physician/PA/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 AND COREMAKING MACHINES) NOTE OF PERSONAL INVOLVEMENT IN CARE: I have personally seen and examined the patient and performed the medical decision-making components. I have reviewed the Advanced Practice Registered Nurse (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 AND COREMAKING MACHINES) Student's documentation and verified the findings in the note as written. Any additions or changes are noted in bold/italics. Signature: Narda Torres Date: 11/06/2024 Time: 10:27 AM documented in this encounter [facility] 07-11-2024 History of Present illness Narrative Radiology Service Progress Note PATIENT NAME: Mildred Dias DATE OF SERVICE: July 11, 2024 TIME: 12:15 PM PATIENT IDENTITY VERIFICATION COMPLETED USING TWO (2) IDENTIFIERS: Name and Date of confirmed by patient verbally. FALL SCREENING: Has the patient had 2 falls in the last year or 1 fall with injury or currently using an Ambulatory Assistive Device (Walker, Cane, Wheelchair, Crutches, etc.)? No PATIENT GENDER DATA: Male PATIENT RELEVANT IMPLANT DATA REVIEWED: Yes PATIENT PRESENTS WITH AN IMPLANTABLE OR ATTACHED COMMERCIAL LOAN MANAGER: No RADIOLOGY DEPARTMENT: General X-ray: Exam(s) Completed: Chest X-Ray PERIPHERAL IV DATA: Not applicable SIGNED BY: RT Layton(Baljeet) July 11, 2024 12:15 PM documented in this encounter [facility] 07-11-2024 Note HNO ID: [id number] Author: BORIS VARNER RT(R) Service: ? Author Type: Small Kick Press Operator Type: Progress Notes Filed: 07/11/2024 12:16 Note Text: Radiology Service Progress Note PATIENT NAME: Mildred Dias DATE OF SERVICE: July 11, 2024 TIME: 12:15 PM PATIENT IDENTITY VERIFICATION COMPLETED USING TWO (2) IDENTIFIERS: Name and Date of confirmed by patient verbally. FALL SCREENING: Has the patient had 2 falls in the last year or 1 fall with injury or currently using an Ambulatory Assistive Device (Walker, Cane, Wheelchair, Crutches, etc.)? No PATIENT GENDER DATA: Male PATIENT RELEVANT IMPLANT DATA REVIEWED: Yes PATIENT PRESENTS WITH AN IMPLANTABLE OR ATTACHED COMMERCIAL LOAN MANAGER: No RADIOLOGY DEPARTMENT: General X-ray: Exam(s) Completed: Chest X-Ray PERIPHERAL IV DATA: Not applicable SIGNED BY: RT Layton(Baljeet) July 11, 2024 12:15 PM [facility] 07-11-2024 Note HNO ID: [id number] Author: EDGAR KRAFT APRN.ASSISTANT FITNESS MANAGER Service: ? Author Type: Nurse Practitioner Type: Progress Notes Filed: 07/11/2024 12:49 Note Text: CC: Patient presents with: Cough: X2 weeks, wheezing HPI: Mildred Dias is a 28 year old male who presents to the office with complaint of chest congestion, head congestion, and cough, nonproductive for 2 weeks. Symptoms are staying the same. Associated symptoms includes wheezing. Denies dyspnea, vomiting , and diarrhea. Treatments tried include nothing so far. with no relief of symptoms. Sick contacts: unknown. History of asthma, frequent episodes of bronchitis, chronic bronchitis, bronchiectasis or COPD: No Smoker: No Seasonal/environmental allergies: No The ROS is otherwise negative. The patient's pmh, medications, allergies, and past visits are reviewed. PHYSICAL EXAM: BP 126/84 Pulse 76 Temp 36.5 ?C (97.7 ?F) Resp 18 Wt 89.5 kg (197 lb 5 oz) SpO2 98% BMI 27.52 kg/m? General appearance: alert, cooperative, pleasant, in no acute distress Head: Normocephalic Eyes: EOM's intact, conjunctiva pink and moist, no icterus, sclera white, non-injected Ears: Right ear: External ear/canal- Normal, TM - clear with good landmarks. Left ear: External ear/canal- Normal, TM - clear with good landmarks Oropharynx:moist without lesions, No erythema, exudates or tonsillar hypertrophy. Heart: Negative. RRR without obvious murmur, gallop, or rubs. No ectopy. Lungs: rhonchi right mid lobe and expiratory wheezing PAST MEDICAL HISTORY Diagnosis Date ADD (attention deficit disorder) Patient states this was in elementary school Finger pain, left PMH - PAST MEDICAL HISTORY OF Color Vision - Good PAST SURGICAL HISTORY Procedure Laterality Date CIRCUMCISION @ COSMETIC EAR LOBE REPAIR 11/02/2011 HAND SURGERY HX Left 05/2023 Little Finger Amputation PAST SURGICAL HISTORY OF Left 08/2022 5th digit ORIF REPAIR FINGER TENDON 10/04/2011 right middle finger ALLERGIES Patient has no known allergies. MEDICATIONS sertraline (ZOLOFT) 50 mg tablet Take 1 tablet by mouth every afternoon. acetaminophen 325 mg cap Take by mouth as needed. (Patient not taking: Reported on 07/11/2024) FAMILY HISTORY Problem Relation Age of Onset None Mother None Father other (Respiratory problems) Maternal Grandmother Unsure of exact disease Heart Maternal Grandfather [place] @ age 27 years Asthma Sister Social History Tobacco Use Smoking status: Former Current packs/day: 0.00 Average packs/day: 1.5 packs/day for 9.0 years (13.5 ttl pk-yrs) Types: Cigarettes Start date: 09/03/2009 Quit date: 09/03/2018 Years since quittin.8 Smokeless tobacco: Never Substance Use Topics Alcohol use: No Drug use: No ASSESSMENT/PLAN: 1. Acute cough - ICD9: 786.2, ICD10: R05.1 (primary diagnosis) - XR CHEST 2V FRONTAL/LAT- neg - PREDNISONE 20 MG TABLET 2. Rhinosinusitis - ICD9: 473.9, ICD10: J32.9 - AZITHROMYCIN 250 MG TABLET Prescription instructions reviewed with patient as applicable. Potential red flag symptoms discussed with the patient. Reviewed appropriate action plan to take if red flag symptoms occur. Patient agreeable to treatment plan. Edgar Kraft APRN.[facility] 07-11-2024 History of Present illness Narrative CC: Patient presents with: Cough: X2 weeks, wheezing HPI: Mildred Dias is a 28 year old male who presents to the office with complaint of chest congestion, head congestion, and cough, nonproductive for 2 weeks. Symptoms are staying the same. Associated symptoms includes wheezing. Denies dyspnea, vomiting , and diarrhea. Treatments tried include nothing so far. with no relief of symptoms. Sick contacts: unknown. History of asthma, frequent episodes of bronchitis, chronic bronchitis, bronchiectasis or COPD: No Smoker: No Seasonal/environmental allergies: No The ROS is otherwise negative. The patient's pmh, medications, allergies, and past visits are reviewed. PHYSICAL EXAM: BP 126/84 Pulse 76 Temp 36.5 C (97.7 F) Resp 18 Wt 89.5 kg (197 lb 5 oz) SpO2 98% BMI 27.52 kg/m General appearance: alert, cooperative, pleasant, in no acute distress Head: Normocephalic Eyes: EOM's intact, conjunctiva pink and moist, no icterus, sclera white, non-injected Ears: Right ear: External ear/canal- Normal, TM - clear with good landmarks. Left ear: External ear/canal- Normal, TM - clear with good landmarks Oropharynx:moist without lesions, No erythema, exudates or tonsillar hypertrophy. Heart: Negative. RRR without obvious murmur, gallop, or rubs. No ectopy. Lungs: rhonchi right mid lobe and expiratory wheezing PAST MEDICAL HISTORY Diagnosis Date ADD (attention deficit disorder) Patient states this was in elementary school Finger pain, left PMH - PAST MEDICAL HISTORY OF Color Vision - Good PAST SURGICAL HISTORY Procedure Laterality Date CIRCUMCISION @ COSMETIC EAR LOBE REPAIR 11/02/2011 HAND SURGERY HX Left 05/2023 Little Finger Amputation PAST SURGICAL HISTORY OF Left 08/2022 5th digit ORIF REPAIR FINGER TENDON 10/04/2011 right middle finger ALLERGIES Patient has no known allergies. MEDICATIONS sertraline (ZOLOFT) 50 mg tablet Take 1 tablet by mouth every afternoon. acetaminophen 325 mg cap Take by mouth as needed. (Patient not taking: Reported on 07/11/2024) FAMILY HISTORY Problem Relation Age of Onset None Mother None Father other (Respiratory problems) Maternal Grandmother Unsure of exact disease Heart Maternal Grandfather AK @ age 27 years Asthma Sister Social History Tobacco Use Smoking status: Former Current packs/day: 0.00 Average packs/day: 1.5 packs/day for 9.0 years (13.5 ttl pk-yrs) Types: Cigarettes Start date: 09/03/2009 Quit date: 09/03/2018 Years since quittin.8 Smokeless tobacco: Never Substance Use Topics Alcohol use: No Drug use: No ASSESSMENT/PLAN: 1. Acute cough - ICD9: 786.2, ICD10: R05.1 (primary diagnosis) - XR CHEST 2V FRONTAL/LAT- neg - PREDNISONE 20 MG TABLET 2. Rhinosinusitis - ICD9: 473.9, ICD10: J32.9 - AZITHROMYCIN 250 MG TABLET Prescription instructions reviewed with patient as applicable. Potential red flag symptoms discussed with the patient. Reviewed appropriate action plan to take if red flag symptoms occur. Patient agreeable to treatment plan. Edgar Kraft APRN.[facility] documented in this encounter [facility] 08-01-2023 History of Present illness Narrative Images from the original note were not included. Subjective HPI HPI Mildred Dias is a 27 year old male who presents today for CC of left thumb pain, redness, swelling. This started 2 days ago. Has tried nothing for relief. Symptoms are worsened by touching area/rom of thumb. Risk factors hx of cellulitis in this thumb few years ago resulting in ER visit/iv atb. Denies injury, nailbiting, fever currently. .Patient presents with: left thumb infection: Possible left thumb infection x 2 days PAST MEDICAL HISTORY Diagnosis Date ADD (attention deficit disorder) Patient states this was in elementary school Finger pain, left PMH - PAST MEDICAL HISTORY OF Color Vision - Good PAST SURGICAL HISTORY Procedure Laterality Date CIRCUMCISION @ COSMETIC EAR LOBE REPAIR 11/02/2011 HAND SURGERY HX Left 05/2023 Little Finger Amputation PAST SURGICAL HISTORY OF Left 08/2022 5th digit ORIF REPAIR FINGER TENDON 10/04/2011 right middle finger ALLERGIES Patient has no known allergies. MEDICATIONS acetaminophen 325 mg cap Take by mouth as needed. doxycycline monohydrate 100 mg tablet Take 1 tablet by mouth two times a day for 7 days. mupirocin (BACTROBAN) 2 % ointment Apply to affected area three times a day for 10 days. FAMILY HISTORY Problem Relation Age of Onset None Mother None Father other (Respiratory problems) Maternal Grandmother Unsure of exact disease Heart Maternal Grandfather AK @ age 27 years Asthma Sister Social History Tobacco Use Smoking status: Former Packs/day: 1.50 Years: 9.00 Additional pack years: 0.00 Total pack years: 13.50 Types: Cigarettes Quit date: 09/03/2018 Years since quittin.9 Smokeless tobacco: Never Substance Use Topics Alcohol use: No Drug use: No ROS Objective Blood pressure 136/84, pulse 101, temperature 36.7 C (98 F), temperature source Tympanic, resp. rate 16, weight 87.8 kg (193 lb 9.6 oz), SpO2 96 %. Physical Exam Constitutional: General: He is not in acute distress. Appearance: He is not toxic-appearing or diaphoretic. HENT: Head: Normocephalic and atraumatic. Pulmonary: Effort: Pulmonary effort is normal. No accessory muscle usage or respiratory distress. Musculoskeletal: Hands: Neurological: Mental Status: He is alert and oriented to person, place, and time. ASSESSMENT/PLAN: 1. Paronychia of finger of left hand - ICD9: 681.02, ICD10: L03.012 - Begin treatment with doxy - No lymphangetic streaking, this was defined for patient to watch for and to seek medical care immediately if appears - Follow up for recheck in three days - DOXYCYCLINE MONOHYDRATE 100 MG TABLET - MUPIROCIN 2 % TOPICAL OINTMENT Morgan Lora APRN.[employer] documented in this encounter [facility] 07-23-2023 Note HNO ID: [id number] Author: Laureen Lombardo MD Service: ? Author Type: Physician Type: Progress Notes Filed: 07/23/2023 1:41 PM Note Text: Laureen Lombardo MD Hand AND Upper Extremity Surgery [address], [place] [address], [address], [place] [address] [address], [address], [place] [id number] TELEMEDICINE FOLLOW UP HISTORY OF PRESENT ILLNESS Mildred Dias presents to the office for follow up of left small finger amputation, 8 weeks and 5 days ago on 05/23/23. Patient states he is doing very well. He has had no scar tenderness or issues returning to work and functioning without the left small finger. He feels like he is able to perform his work duties. His paperwork for the settlement has been completed for him. He is very happy with his recovery. PAST MEDICAL HISTORY Past medical, surgical, family, and social histories have been reviewed and updated with the patient today and are located elsewhere in the medical record. ALLERGIES ALLERGIES No Known Allergies ASSESSMENT AND PLAN (Z89.022) S/P surgical amputation of finger, left (primary encounter diagnosis) All patient's questions were answered to their satisfaction. I encouraged him to return or call with any questions or concerns regarding the progression of recovery. However, I do not expect any complications at this point. Patient verbalized understanding and agreement with plan. Follow up as needed. Patient instructed to call the office with questions or concerns. Laureen Lombardo MD [facility] 07-23-2023 History of Present illness Narrative Images from the original note were not included. Laureen Lombardo MD Hand & Upper Extremity Surgery [address], [place] [address], [address], [place] [address] [address], [address], [place] [address] TELEMEDICINE FOLLOW UP HISTORY OF PRESENT ILLNESS Mildred Dias presents to the office for follow up of left small finger amputation, 8 weeks and 5 days ago on 05/23/23. Patient states he is doing very well. He has had no scar tenderness or issues returning to work and functioning without the left small finger. He feels like he is able to perform his work duties. His paperwork for the settlement has been completed for him. He is very happy with his recovery. PAST MEDICAL HISTORY Past medical, surgical, family, and social histories have been reviewed and updated with the patient today and are located elsewhere in the medical record. ALLERGIES ALLERGIES No Known Allergies ASSESSMENT AND PLAN (Z89.022) S/P surgical amputation of finger, left (primary encounter diagnosis) All patient's questions were answered to their satisfaction. I encouraged him to return or call with any questions or concerns regarding the progression of recovery. However, I do not expect any complications at this point. Patient verbalized understanding and agreement with plan. Follow up as needed. Patient instructed to call the office with questions or concerns. Laureen Lombardo MD documented in this encounter [facility] 06-25-2023 Note HNO ID: [id number] Author: Laureen Lombardo MD Service: ? Author Type: Physician Type: Progress Notes Filed: 06/25/2023 6:05 PM Note Text: Laureen Lombardo MD Hand AND Upper Extremity Surgery [address], [facility] [address] [address], [facility] [address] [address], [address], [place] [address] POST-OP VISIT SERVICE DATE: 06/25/2023 SURGICAL PROCEDURE: 4 weeks 5 days status post- amputation of left small finger at MCP joint SURGERY DATE: 05/23/23 Mildred Dias is a 27 year old male who presents for evaluation following the above procedure. Patient is doing well. Patient denies any fevers or chills. Patient denies any new drainage from the incision. Has occasional tingling with pressure in the webspace. Pain is controlled with None. Patient is working on strengthening and range of motion with a home exercise program without OT Work status: Not returned to work due to post op restrictions/protocol Very happy with his function. 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 Pain level: 2/10; sore MEDICATIONS: Reviewed. ALLERGIES: Reviewed. PHYSICAL EXAM: VITAL SIGNS: Pulse 78 Ht 5' 11 (1.80m) Wt 180 lb (81.6kg) SpO2 98% BMI 25.12 kg/(m2). GENERAL: The patient is well developed and well nourished, awake, alert, and oriented with appropriate mood and affect. Baseline gait and station. SKIN: Skin is non-erythematous., No active drainage. , No area of fluctuance., and Incision maturing INSPECTION/PALPATION: There is no swelling around the surgical site. TENDERNESS: There is no tenderness to palpation over the surgical site. ROM: There is good ring finger motion LIGAMENTS: Not tested. MUSCLE: Copy Holder strength is improved NEURO: Sensation is grossly intact to light touch in the median, ulnar, and radial distributions. VASCULAR: Strong radial pulse. Excellent capillary refill to all digits. POST OPERATIVE IMAGING: None obtained Assessment and Plan: (Z89.022) S/P surgical amputation of finger, left (primary encounter diagnosis) No evidence of symptomatic neuroma. He is very happy with his outcome thus far. He has been advancing his activities at home without any significant issue. He does note a couple of inconveniences due to loss of the digit like not realizing when he is using the ulnar hand to take change off the table for example. But he is learning to adapt. He feels like he will be able to perform his occupational duties much better now without the contracture. Letter provided for him to return to work. All patient's questions were answered to their satisfaction. Patient/family acknowledges understanding of instructions: Yes Patient advised to call with questions or concerns Some elements copied from my notes including the physical exam completed in entirety today, have been updated where appropriate. All reflect current medical decision making from today, 06/25/2023 Follow up 3-4 weeks. No X-Rays Needed [facility] 06-25-2023 History of Present illness Narrative Images from the original note were not included. Laureen Lombardo MD Hand & Upper Extremity Surgery [address], [facility] [address] [address], [address], [facility] [address] [address], [address], [place] [address] POST-OP VISIT SERVICE DATE: 06/25/2023 SURGICAL PROCEDURE: 4 weeks 5 days status post- amputation of left small finger at MCP joint SURGERY DATE: 05/23/23 Mildred Dias is a 27 year old male who presents for evaluation following the above procedure. Patient is doing well. Patient denies any fevers or chills. Patient denies any new drainage from the incision. Has occasional tingling with pressure in the webspace. Pain is controlled with None. Patient is working on strengthening and range of motion with a home exercise program without OT Work status: Not returned to work due to post op restrictions/protocol Very happy with his function. 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 Pain level: 2/10; sore MEDICATIONS: Reviewed. ALLERGIES: Reviewed. PHYSICAL EXAM: VITAL SIGNS: Pulse 78 Ht 5' 11 (1.80m) Wt 180 lb (81.6kg) SpO2 98% BMI 25.12 kg/(m^2). GENERAL: The patient is well developed and well nourished, awake, alert, and oriented with appropriate mood and affect. Baseline gait and station. SKIN: Skin is non-erythematous., No active drainage. , No area of fluctuance., and Incision maturing INSPECTION/PALPATION: There is no swelling around the surgical site. TENDERNESS: There is no tenderness to palpation over the surgical site. ROM: There is good ring finger motion LIGAMENTS: Not tested. MUSCLE: Copy Holder strength is improved NEURO: Sensation is grossly intact to light touch in the median, ulnar, and radial distributions. VASCULAR: Strong radial pulse. Excellent capillary refill to all digits. POST OPERATIVE IMAGING: None obtained Assessment and Plan: (Z89.022) S/P surgical amputation of finger, left (primary encounter diagnosis) No evidence of symptomatic neuroma. He is very happy with his outcome thus far. He has been advancing his activities at home without any significant issue. He does note a couple of inconveniences due to loss of the digit like not realizing when he is using the ulnar hand to take change off the table for example. But he is learning to adapt. He feels like he will be able to perform his occupational duties much better now without the contracture. Letter provided for him to return to work. All patient's questions were answered to their satisfaction. Patient/family acknowledges understanding of instructions: Yes Patient advised to call with questions or concerns Some elements copied from my notes including the physical exam completed in entirety today, have been updated where appropriate. All reflect current medical decision making from today, 06/25/2023 Follow up 3-4 weeks. No X-Rays Needed documented in this encounter [facility] 06-25-2023 Nurse Note Patient here 4.5 weeks post Left Little Finger Amputation. He states doing pretty good, some occasional aches. He has resumed his normal activities. documented in this encounter [facility] 06-04-2023 Note HNO ID: [id number] Author: Laureen Lombardo MD Service: ? Author Type: Physician Type: Progress Notes Filed: 06/05/2023 5:57 AM Note Text: Laureen Lombardo MD Hand AND Upper Extremity Surgery [address], [facility] [address] [address], [address], [facility] [address] [address], [address], [place] [address] POST-OP VISIT SERVICE DATE: 06/04/2023 SURGICAL PROCEDURE: 12 days status post- surgical amputation of the left 5th digit SURGERY DATE: 05/23/23 Mildred Dias is a 27 year old male who presents for evaluation following the above procedure. Patient is doing well. Patient denies any fevers or chills. Patient denies any new drainage from the incision. Denies any numbness/tingling. Denies phantom pain. Pain is controlled with OTC Tylenol and/or NSAIDs. Patient is working on range of motion with a home exercise program without OT Work status: Not returned to work due to post op restrictions/protocol Able to do some stuff at home with the hand but has not pushed it in order to protect the incision. Pain level: 11/10 MEDICATIONS: Reviewed. ALLERGIES: Reviewed. PHYSICAL EXAM: VITAL SIGNS: Pulse 79 Ht 5' 11 (1.80m) Wt 180 lb (81.6kg) SpO2 94% BMI 25.12 kg/(m2). GENERAL: The patient is well developed and well nourished, awake, alert, and oriented with appropriate mood and affect. Baseline gait and station. SKIN: Incision clean, dry, intact, well approximated, Skin is non-erythematous., No active drainage. , and No area of fluctuance. INSPECTION/PALPATION: There is normal post op swelling around the surgical site. TENDERNESS: There is tenderness to palpation over the surgical site. ROM: There is good range of motion of the ring through thumb digits LIGAMENTS: Not tested. MUSCLE: Copy Holder strength is not tested NEURO: Sensation is grossly intact to light touch in the median, ulnar, and radial distributions. VASCULAR: Strong radial pulse. Excellent capillary refill to all digits. POST OPERATIVE IMAGING: None obtained Assessment and Plan: (Z89.022) S/P surgical amputation of finger, left (primary encounter diagnosis) Patient did not obtain the digit as planned. He is happy with his results thus far. We did review the intraoperative findings of this intra-articular and tendon stiffness. We discussed needing therapy for home exercise program for strengthening as the sutures heal. All patient's questions were answered to their satisfaction. Patient/family acknowledges understanding of instructions: Yes Patient advised to call with questions or concerns Follow up 3-4 weeks. No X-Rays Needed [facility] 05-23-2023 Note HNO ID: [id number] Author: Stephanie Chambers RN Service: ? Author Type: Registered Nurse Type: Nursing Progress Note Filed: 05/23/2023 10:26 AM Note Text[facility] HNO ID: [id number] Author: Stephanie Chambers RN Service: ? Author Type: Registered Nurse Type: Nursing Progress Note Filed: 05/23/2023 10:24 AM Note Text: Mildred Dias [id number] Patient dressed self Stephanie Chambers RN [facility] 05-23-2023 Note HNO ID: [id number] Author: Stephanie Chambers RN Service: ? Author Type: Registered Nurse Type: Nursing Progress Note Filed: 05/23/2023 10:26 AM Note Text: Mildred Qiu Arun [id number] Attending physician speaking with patient Stephanie Chambers RN [facility] 05-23-2023 Note HNO ID: [id number] Author: Laureen Lombardo MD Service: Orthopaedic Surgery Author Type: Physician Type: Progress Notes Filed: 05/23/2023 10:00 AM Note Text: HAND SURGERY PROGRESS NOTE Did discuss amputation level with the patient again to confirm his choices for what would benefit his employment/activities the best. Also discussed with him his request to keep the digit. Had instructions per the pathology department about sending the specimen with a request for patient to keep and then picking it up for him from the lab. Spoke to histology this morning to confirm this and the manager of warehouse stated that they are only allowed to release to a home and never to a patient. Therefore there is conflicting instructions for the steps. Discussed with patient. Laureen Lombardo MD May 23, 2023 8:12 AM Addendum: New [facility] policy indicates that human tissue must go through ombudsman and home. Patient aware. Ombudsman to be contacted by lab per policy. Laureen Lombardo MD May 23, 2023 10:00 AM [facility] 04-17-2023 Note HNO ID: [id number] Author: Laureen Lombardo MD Service: ? Author Type: Physician Type: Progress Notes Filed: 04/17/2023 1:35 PM Note Text: [facility] Operative Scheduling Details Diagnosis: (M25.642) Finger stiffness, left (primary encounter diagnosis) (Z98.890) S/P tendon repair (Z98.890) S/P nerve repair Procedure: Amputation of left small finger OR Time Needed: 1.5 hours Location: [] [facility] [] [facility] Equipment Request: sara [x] Mini-C-arm [] Large C-arm Anesthesia: Local and MAC Post op appointment: 1 week Inpatient stay: No Pre Testing Needed: No Occupational Therapy: No Time Frame for scheduling: elective [facility] 04-17-2023 Note HNO ID: [id number] Author: Laureen Lombardo MD Service: ? Author Type: Physician Type: Progress Notes Filed: 04/17/2023 1:35 PM Note Text: Laureen Lombardo MD Hand AND Upper Extremity Surgery [address], [place] [address] [address], [address], [facility] [address] [address], [address], [place] [address] TELEMEDICINE FOLLOW UP HISTORY OF PRESENT ILLNESS Mildred Dias presents to the office for follow up of left small finger PIP stiffness s/p tenolysis on 12/13/22. I had sent him to one of my partner's Dr Forbes for another opinion/discussion. Patient states that the conversation was very similar and that he feels he has enough information regarding the options to be making an informed decision. Patient would like to proceed with amputation. He has cold intolerance already and therefore understands this possible complication as well as phantom pain. He understands effect on blood coordinator strength. PAST MEDICAL HISTORY Past medical, surgical, family, and social histories have been reviewed and updated with the patient today and are located elsewhere in the medical record. ALLERGIES ALLERGIES No Known Allergies ASSESSMENT AND PLAN (M25.642) Finger stiffness, left (primary encounter diagnosis) (Z98.890) S/P tendon repair (Z98.890) S/P nerve repair We discussed options for different levels of amputation. Discussed that with FDS tenotomy, he could have proximal phalanx flexion with the lumbricals. Patient would like to pursue amputation to the MCP joint. He does not feel that the addition of the proximal phalanx would help his activity level. He would like to not have the digit in the way since he's ignoring it at this point all the time for activities. He understands this will effect blood coordinator. I reviewed risks of surgery as they pertain to this particular patient including chronic pain. Overall risks also to include, but not limited to; injury to neuro-vascular structures, muscles, tendons,or ligaments. The possibility of infection, or other wound complications. The possibility of no improvement, or worsening of the pre-op symptoms, and the need for further surgery. No guarantees were stated or implied. We will apply for [facility] for amputation. He also requested for religous reasons keeping the digit. I will look into the procedure/process for this application/request since I have not had this happen before. All patient's questions were answered to their satisfaction. Follow up post-operatively. No X-Rays Needed Patient instructed to call the office with questions or concerns. Laureen Lombardo MD [facility] 04-17-2023 History of Present illness Narrative [facility] Operative Scheduling Details Diagnosis: (M25.642) Finger stiffness, left (primary encounter diagnosis) (Z98.890) S/P tendon repair (Z98.890) S/P nerve repair Procedure: Amputation of left small finger OR Time Needed: 1.5 hours Location: [] [facility] [x] [facility] [] [facility] Equipment Request: sara [x] Mini-C-arm [] Large C-arm Anesthesia: Local and MAC Post op appointment: 1 week Inpatient stay: No Pre Testing Needed: No Occupational Therapy: No Time Frame for scheduling: elective Images from the original note were not included. Laureen Lombardo MD Hand & Upper Extremity Surgery [address], [facility] [address] [address] [facility] [address], [facility] [address] [address], [address], [place] [address] TELEMEDICINE FOLLOW UP HISTORY OF PRESENT ILLNESS Mildred Dias presents to the office for follow up of left small finger PIP stiffness s/p tenolysis on 12/13/22. I had sent him to one of my partner's Dr Forbes for another opinion/discussion. Patient states that the conversation was very similar and that he feels he has enough information regarding the options to be making an informed decision. Patient would like to proceed with amputation. He has cold intolerance already and therefore understands this possible complication as well as phantom pain. He understands effect on blood coordinator strength. PAST MEDICAL HISTORY Past medical, surgical, family, and social histories have been reviewed and updated with the patient today and are located elsewhere in the medical record. ALLERGIES ALLERGIES No Known Allergies ASSESSMENT AND PLAN (M25.642) Finger stiffness, left (primary encounter diagnosis) (Z98.890) S/P tendon repair (Z98.890) S/P nerve repair We discussed options for different levels of amputation. Discussed that with FDS tenotomy, he could have proximal phalanx flexion with the lumbricals. Patient would like to pursue amputation to the MCP joint. He does not feel that the addition of the proximal phalanx would help his activity level. He would like to not have the digit in the way since he's ignoring it at this point all the time for activities. He understands this will effect blood coordinator. I reviewed risks of surgery as they pertain to this particular patient including chronic pain. Overall risks also to include, but not limited to; injury to neuro-vascular structures, muscles, tendons,or ligaments. The possibility of infection, or other wound complications. The possibility of no improvement, or worsening of the pre-op symptoms, and the need for further surgery. No guarantees were stated or implied. We will apply for [facility] for amputation. He also requested for religous reasons keeping the digit. I will look into the procedure/process for this application/request since I have not had this happen before. All patient's questions were answered to their satisfaction. Follow up post-operatively. No X-Rays Needed Patient instructed to call the office with questions or concerns. Laureen Lombardo MD documented in this encounter [facility] 03-30-2023 Note HNO ID: [id number] Author: Laureen Lombardo MD Service: ? Author Type: Physician Type: Progress Notes Filed: 03/30/2023 1:02 PM Note Text: Patient did not log in for video visit. Office did call patient but had to leave . Laureen Lombardo MD [facility] 03-19-2023 Note HNO ID: [id number] Author: Jason Forbes MD Service: ? Author Type: Physician Type: Progress Notes Filed: 03/19/2023 9:25 AM Note Text: Patient presents with: Left Little Finger - New, Pain, Swelling, Numbness HISTORY OF PRESENT ILLNESS Mildred Dias is a 27 year old male right hand dominant who presents for a second opinion. The patient has been treated to date by Dr. Lombardo. This is a [facility] case. He has a history of injury dating back to 08/18/2022 when a high-energy spring came loose and injured the volar aspect of his left small finger. He had a displaced articular fracture of the small finger PIP joint in addition to tendon laceration and digital nerve laceration. The patient underwent surgery on 08/24/2022. He underwent exploration with ORIF of the articular fracture, volar plate arthroplasty as well as repair of the small finger FDP, small finger FDS tenotomy and repair of the radial digital nerve. The patient states that he had profound stiffness and pain following this, and had tried very hard through therapy to improve his motion. He underwent a second procedure on 12/13/2022 with flexor tenosynovectomy, and a PIP joint capsulectomy. He states that this did not improve his motion. 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 He states that he does not wish to have any additional surgery and would like to bring finality to this and had discussed amputation at the PIP joint level with Dr. Lombardo. She wished to have another opinion regarding this. 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 Quit 09/03/2018. Types: Cigarettes REVIEW OF SYSTEMS Cardiovascular ROS:No history of chest pain, palpitation, orthopnea, cyanosis, pedal edema Neurologic ROS: Numbness and Tingling:Yes PAST MEDICAL HISTORY Past medical, surgical, family, and social histories have been reviewed and updated with the patient today and are located elsewhere in the medical record. Diabetes:No ALLERGIES ALLERGIES No Known Allergies PHYSICAL EXAMINATION Resp 18 Ht 180.3 cm (5' 11) Wt 85.3 kg (188 lb) BMI 26.22 kg/m? Body mass index is 26.22 kg/m?. General Appearance Well appearing, alert, in no acute distress, well-hydrated, well nourished. Alert and oriented times: 3 Normal affect times: 3 Appears stated age and well nourished Gait and station:normal Left Upper Extremity Exam: Inspection shows healed incisions on the volar aspect of the small finger Resting flexed posture of 50 degrees at the PIP joint Skin: WNL Tenderness to palpation: Tender along the zone of injury ROM: Profound stiffness with attempted isolation of the DIP. There is very minimal DIP motion. No significant PIP flexion either. 2 cm deficit tip to palm on composite fist No substantial change with passive motion either Instability: none Sensation:Normal sensation on the ulnar aspect of the small finger Dysesthesia on the radial side Atrophy: None Brisk capillary refill REVIEW OF STUDIES X-rays 02/06/2023 3 views of the left small finger demonstrate a concentric joint surface with a single interfragmentary screw in place. ASSESSMENT AND PLAN ASSESSMENT/PLAN: 1. Finger stiffness, left - ICD9: 719.54, ICD10: M25.642 (primary diagnosis) 2. S/P tendon repair - ICD9: V45.89, ICD10: Z98.890 3. S/P nerve repair - ICD9: V45.89, ICD10: Z98.890 I discussed the diagnosis at length with the patient. He has a very complex set of injuries to the finger and despite having a recent surgery for the stiffness, he has not seen any significant improvement. He is very clear about his desires and the reasons behind them, and states emphatically that he does not wish to have any additional treatments. I did discuss the option of a secondary capsulectomy and tenolysis under local anesthesia but again he would prefer to proceed with a more predictable solution and requests amputation. We discussed some of the issues surrounding this inclusive of phantom pains, sensitivity, cold intolerance etc. I think it would be reasonable to proceed with an amputation especially given the failed tenolysis. He is going to return to care with Dr. Lombardo to discuss this further. Jason Forbes MD Patient educated on treatment options for stiff postoperative digit Patient instructed to call the office with questions or concerns. [facility] 02-06-2023 Note HNO ID: [id number] Author: Laureen Lombardo MD Service: ? Author Type: Physician Type: Progress Notes Filed: 02/06/2023 5:33 PM Note Text: Laureen Lombardo MD Hand AND Upper Extremity Surgery [address] [facility], [address], [place] [address] [address], [place] [address] [address] [facility] [address], [place] [address] [address], [address], [place] [address] POST-OP VISIT SERVICE DATE: 02/06/2023 SURGICAL PROCEDURE: 7 weeks 6 days status post- tenolysis of the left small finger FDP SURGERY DATE: 12/13/22 Mildred Dias is a 27 year old male who presents for evaluation following the above procedure. Patient is doing well postoperatively and advancing through postop protocol. Patient denies any fevers or chills. Patient denies any new drainage from the incision. Slightly improved radial digital numbness/tingling. Pain is controlled with 9. Patient is working on range of motion with a home exercise program with OT Work status: has returned to work He states he has been using an LMB splint and extension splints. He states that the digit is getting in the way of what he needs to do. He tries to bypass it but the existence of it is bothering him more. He again reiterates interest in amputation. MEDICATIONS: Reviewed. ALLERGIES: Reviewed. PHYSICAL EXAM: VITAL SIGNS: Resp 18 Ht 5' 11 (1.80m) Wt 180 lb (81.6kg) BMI 25.12 kg/(m2). GENERAL: The patient is well developed and well nourished, awake, alert, and oriented with appropriate mood and affect. Baseline gait and station. SKIN: The skin surrounding the incision is non-erythematous. No active drainage. No fluctuance or fluid collection. Incision well healed. Scar tissue palpable at the volar surface. INSPECTION/PALPATION: There is interval improvement of swelling around the surgical site, within normal post-op limits, and no palpable joint effusion. TENDERNESS: There is is tenderness to palpation over the surgical site. ROM: There is -55 deg extension lag at PIP joint of the small finger; it is progressively worsening LIGAMENTS: Not tested. MUSCLE: Copy Holder strength is decreased due to pain. NEURO: Sensation is grossly intact to light touch in the median, ulnar, and radial distributions. VASCULAR: Strong radial pulse. Excellent capillary refill to all digits. POST OPERATIVE IMAGIN view (lateral) of the left small finger were obtained, reviewed and interpreted and demonstrate no evidence of implant articular penetration or loss of joint congruity. Small step off at the prior fracture line. Assessment and Plan: (Z98.890) Post-operative state (primary encounter diagnosis) (M25.642) Finger stiffness, left Unfortunately he has scar formation again over the PIP joint and proximal phalanx volarly. The x-rays do not indicate any displacement of the fragment or screw that would indicate bony or hardware block. I discussed with him again that prior to pursuing amputation for a sensate vascularized digit I would like him to seek another opinion with one of my senior partners. I will send him to Dr. Forbes for another opinion. He is agreeable to this. Patient/family acknowledges understanding of instructions: Yes Patient advised to call with questions or concerns Follow up after another opinion. [facility] 02-06-2023 History of Present illness Narrative Images from the original note were not included. Laureen Lombardo MD Hand & Upper Extremity Surgery [address] [facility], [address], [facility] [address] [address], [facility] [address] [address] [facility] [address], [facility] [address] [address], [address], [place] [address] POST-OP VISIT SERVICE DATE: 02/06/2023 SURGICAL PROCEDURE: 7 weeks 6 days status post- tenolysis of the left small finger FDP SURGERY DATE: 12/13/22 Mildred Dias is a 27 year old male who presents for evaluation following the above procedure. Patient is doing well postoperatively and advancing through postop protocol. Patient denies any fevers or chills. Patient denies any new drainage from the incision. Slightly improved radial digital numbness/tingling. Pain is controlled with 9. Patient is working on range of motion with a home exercise program with OT Work status: has returned to work He states he has been using an LMB splint and extension splints. He states that the digit is getting in the way of what he needs to do. He tries to bypass it but the existence of it is bothering him more. He again reiterates interest in amputation. MEDICATIONS: Reviewed. ALLERGIES: Reviewed. PHYSICAL EXAM: VITAL SIGNS: Resp 18 Ht 5' 11 (1.80m) Wt 180 lb (81.6kg) BMI 25.12 kg/(m^2). GENERAL: The patient is well developed and well nourished, awake, alert, and oriented with appropriate mood and affect. Baseline gait and station. SKIN: The skin surrounding the incision is non-erythematous. No active drainage. No fluctuance or fluid collection. Incision well healed. Scar tissue palpable at the volar surface. INSPECTION/PALPATION: There is interval improvement of swelling around the surgical site, within normal post-op limits, and no palpable joint effusion. TENDERNESS: There is is tenderness to palpation over the surgical site. ROM: There is -55 deg extension lag at PIP joint of the small finger; it is progressively worsening LIGAMENTS: Not tested. MUSCLE: Copy Holder strength is decreased due to pain. NEURO: Sensation is grossly intact to light touch in the median, ulnar, and radial distributions. VASCULAR: Strong radial pulse. Excellent capillary refill to all digits. POST OPERATIVE IMAGIN view (lateral) of the left small finger were obtained, reviewed and interpreted and demonstrate no evidence of implant articular penetration or loss of joint congruity. Small step off at the prior fracture line. Assessment and Plan: (Z98.890) Post-operative state (primary encounter diagnosis) (M25.642) Finger stiffness, left Unfortunately he has scar formation again over the PIP joint and proximal phalanx volarly. The x-rays do not indicate any displacement of the fragment or screw that would indicate bony or hardware block. I discussed with him again that prior to pursuing amputation for a sensate vascularized digit I would like him to seek another opinion with one of my senior partners. I will send him to Dr. Forbes for another opinion. He is agreeable to this. Patient/family acknowledges understanding of instructions: Yes Patient advised to call with questions or concerns Follow up after another opinion. documented in this encounter [facility] 01-16-2023 Note HNO ID: [id number] Author: Laureen Lombardo MD Service: ? Author Type: Physician Type: Progress Notes Filed: 01/19/2023 8:26 AM Note Text: Laureen Lombardo MD Hand AND Upper Extremity Surgery [address] [facility], [place] [address] [address], [address], [place] [address] [address] [facility] [address], [facility] [address] [address], [address], [place] [address] POST-OP VISIT SERVICE DATE: 01/16/2023 SURGICAL PROCEDURE: 4 weeks 6 days status post- tenolysis of the left small finger FDP SURGERY DATE: 12/13/22 Mildred Dias is a 27 year old male who presents for evaluation following the above procedure. Patient is doing well postoperatively and advancing through postop protocol. Patient denies any fevers or chills. Patient denies any new drainage from the incision. Improving numbness/tingling. Pain is controlled with intermittent use of over the counter NSAIDs. Patient is working on range of motion with a home exercise program with OT. Denies new trauma. Denies popping or episodes of instability sensation. Work status: has returned to work Despite significant improvement from preoperative patient is still not happy that his finger does not go fully straight at the PIP joint. He is willing to continue working with OT but states he still wishes it was amputated at times. Patient is working with OT on adhesions in the palm and he had an LMB but misplaced it. He also wears an extension splint but states that it eventually hurts and he has to remove it. MEDICATIONS: Reviewed. ALLERGIES: Reviewed. PHYSICAL EXAM: VITAL SIGNS: Resp 18 Ht 5' 11 (1.80m) Wt 180 lb (81.6kg) BMI 25.12 kg/(m2). GENERAL: The patient is well developed and well nourished, awake, alert, and oriented with appropriate mood and affect. Baseline gait and station. SKIN: The skin surrounding the incision is non-erythematous. No active drainage. No fluctuance or fluid collection. 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 TENDERNESS: There is is not tenderness to palpation over the surgical site. ROM: There is -30 deg extension lag at the PIP joint. 75 deg of MCP flexion; 55 deg of PIP flexion. LIGAMENTS: Not tested. MUSCLE: Copy Holder strength is decreased due to pain. NEURO: Sensation is grossly intact to light touch in the median, ulnar, and radial distributions. VASCULAR: Strong radial pulse. Excellent capillary refill to all digits. POST OPERATIVE IMAGING: None Assessment and Plan: (Z98.890) Post-operative state (primary encounter diagnosis) (M25.642) Finger stiffness, left Again I reviewed with him that I think we can continue to work with therapy on the remaining contracture. I reiterated the seriousness of his original injury. He remains frustrated. I would like him to wait until maximal improvement is achieved before deciding to seek another opinion for amputation of the digit. Patient verbalized understanding and agreement with plan. Patient/family acknowledges understanding of instructions: Yes Patient advised to call with questions or concerns Follow up in 3 weeks. X-Rays Needed: 3 views of the left small finger [facility] 12-18-2022 History of Present illness Narrative Images from the original note were not included. Laureen Lombardo MD Hand & Upper Extremity Surgery [address] [facility], [address], [facility] [address] [address], [place] [address] [address] [facility], [address], [facility] [address] [address], [address], [place] [address] POST-OP VISIT SERVICE DATE: 12/19/2022 SURGICAL PROCEDURE: 6 days status post- 1) Flexor tenosynovectomy of left small finger 2) Left small finger proximal interphalangeal joint capsulodesis SURGERY DATE: 12/13/22 Mildred Dias is a 27 year old male who presents for evaluation following the above procedure. Patient is doing well postoperatively and advancing through postop protocol. Patient denies any fevers or chills. Patient denies any new drainage from the incision. Improved numbness/tingling. Pain is controlled with intermittent use of over the counter NSAIDs. Patient is working on range of motion with a home exercise program with OT Work status: has not returned to work He is happy that his finger is much straighter. It is not limiting him as much at work compared to preoperative. He is using a thermoplastic splint for nighttime extension. MEDICATIONS: Reviewed. ALLERGIES: Reviewed. PHYSICAL EXAM: VITAL SIGNS: Resp 18 Ht 5' 11 (1.80m) Wt 180 lb (81.6kg) BMI 25.12 kg/(m^2). GENERAL: The patient is well developed and well nourished, awake, alert, and oriented with appropriate mood and affect. Baseline gait and station. SKIN: The skin surrounding the incision is non-erythematous. No active drainage. No fluctuance or fluid collection. Incision clean, dry and intact., well approximated INSPECTION/PALPATION: There is constant swelling around the surgical site, within normal post-op limits, and no palpable joint effusion. TENDERNESS: There is is tenderness to palpation over the surgical site. ROM: There is significantly improved extension to -20 deg. He also has improved flexion from preoperative LIGAMENTS: Not tested. MUSCLE: Copy Holder strength is decreased due to pain. NEURO: Sensation is grossly intact to light touch in the median, ulnar, and radial distributions. VASCULAR: Strong radial pulse. Excellent capillary refill to all digits. POST OPERATIVE IMAGING: None Assessment and Plan: (Z98.890) Post-operative state (primary encounter diagnosis) (M25.642) Finger stiffness, left Reviewed intra-op findings with the patient. Patient will continue to work with OT on range of motion. He will continue to prevent hyperextension of PIP joint to prevent instability. In regards to wound care, I recommend no ointments, alcohol or peroxide. I recommend washing with soap and water. All patient's questions were answered to their satisfaction. Patient/family acknowledges understanding of instructions: Yes Patient advised to call with questions or concerns Follow up in 3 weeks. No X-Rays Needed documented in this encounter [facility] 11-08-2022 History of Present illness Narrative [facility] ([facility]) Operative Scheduling Details Diagnosis: Left small finger stiffness Procedure: Tenolysis of left small finger flexor digitorum profundus OR Time Needed: 2 hours [place] or [facility] or [facility]: [facility] Equipment Request: Lead hand Anesthesia: local Post op appointment: 7-10 days Inpatient stay: No Block Needed: No Pre Testing Needed: no Occupational Therapy: 1 day post op Images from the original note were not included. Laureen Lombardo MD Hand & Upper Extremity Surgery [address] [facility], [place] [address], [place] [address] [address] [facility], [address], [place] [address] [address], [address], [place] [address] POST-OP VISIT SERVICE DATE: 11/07/2022 SURGICAL PROCEDURE: 10 weeks 5 days status post- 1) Exploration of left small finger laceration 2) Open reduction internal fixation of left small finger open intra-articular middle phalanx fracture 3) Left small finger volar plate arthroplasty 4) Repair of left small finger FDP, zone 2 5) Left small finger FDS tenotomy 6) Direct repair of digital nerve, left small finger SURGERY DATE: 08/24/22 Mildred Dias is a 27 year old male who presents for evaluation following the above procedure. Patient is doing well postoperatively and advancing through postop protocol. Patient denies any fevers or chills. Patient denies any new drainage from the incision. Continued radial side (repaired nerve distribution) numbness/tingling. Pain is controlled with intermittent use of over the counter NSAIDs. Patient was working on range of motion with a home exercise program with OT. However, despite our application for more OT visits to [facility], he had not heard back to reschedule appointments. He does state that he doesn't think he was getting a lot out of it because despite a lot of tools to manipulate the scarring, his small finger motion had not progressed but actually the contracture has worsened. Work status: has returned to work but is very frustrated because the flexed posture of the digit is significantly impacting his work as it is getting in the way Patient expresses his frustration and seriously wants to consider surgical amputation over the flexed posture that it is currently in. He states he'd rather not have the digit at all than have it get in the way or be abnormal to the point that it compromises his job/function. PAST MEDICAL HISTORY Diagnosis Date ADD (attention deficit disorder) Patient states this was in elementary school PMH - PAST MEDICAL HISTORY OF Color Vision - Good PAST SURGICAL HISTORY Procedure Laterality Date CIRCUMCISION @ COSMETIC EAR LOBE REPAIR 11/02/2011 REPAIR FINGER TENDON 10/04/2011 right middle finger FAMILY HISTORY Problem Relation Age of Onset None Mother None Father other (Respiratory problems) Maternal Grandmother Unsure of exact disease Heart Maternal Grandfather AK @ age 27 years Asthma Sister Social History Tobacco Use Smoking status: Former Packs/day: 1.50 Years: 9.00 Pack years: 13.50 Types: Cigarettes Quit date: 09/03/2018 Years since quittin.1 Smokeless tobacco: Never Substance Use Topics Alcohol use: No Drug use: No MEDICATIONS: Current Outpatient Medications Medication Sig Nicotine 21-14-7 mg/24 hr ptds Apply 21 mg as directed once daily. No current facility-administered medications for this visit. ALLERGIES: ALLERGIES No Known Allergies PHYSICAL EXAM: VITAL SIGNS: Resp 18 Ht 5' 11 (1.80m) Wt 180 lb (81.6kg) BMI 25.12 kg/(m^2). GENERAL: The patient is well developed and well nourished, awake, alert, and oriented with appropriate mood and affect. Baseline gait and station. SKIN: The skin surrounding the incision is non-erythematous. No active drainage. No fluctuance or fluid collection. Incision well healed INSPECTION/PALPATION: There is no swelling around the surgical site, within normal post-op limits, and no palpable joint effusion. Significantly dense scar in the area of the flexor tendon TENDERNESS: There is is not tenderness to palpation over the surgical site. ROM: There is 5 deg of active DIP flexion with blocking. Flexion contracture of 55 deg at the PIP joint. MP motion near baseline LIGAMENTS: Not tested. MUSCLE: Copy Holder strength is decreased due to pain. NEURO: Sensation is grossly intact to light touch in the median, ulnar, and radial distributions. Decreased sensation to the radial small finger at the site of the nerve repair VASCULAR: Strong radial pulse. Excellent capillary refill to all digits. POST OPERATIVE IMAGIN views (PA, oblique, lateral) of the left small finger were obtained, reviewed and interpreted and demonstrate healing of the base of the middle phalanx fracture. There is no evidence of V sign for subtle dislocation, however the digit is not extended fully due to the contracture. Assessment and Plan: (Z98.890, Z87.81) S/P ORIF (open reduction internal fixation) fracture (primary encounter diagnosis) (Z98.890) S/P tendon repair (Z98.890) S/P nerve repair (Z72.0) Tobacco abuse I reviewed the X-rays with the patient. The fracture/dislocation at the PIP joint healed well from a stability/bony perspective. However, the soft tissues have significantly scarred. I discussed with him that I performed the FDS tenotomy to try to decrease adhesions given the FDP repair and shotgun approach with ORIF of the middle phalanx. But clearly we still have significant adhesions that are preventing his function. I had a long conversation with him regarding tenolysis. I cannot promise him a normal digit but I think this surgery can improve his symptoms enough that he won't be as frustrated. I do not recommend surgical amputation at this point of a viable, noninfected, stable, sensate digit. He was really adamant about the amputation option initially. I offered him another opinion with one of my senior partners so he can have a discussion with another surgeon and hear a different perspective. I also had the hand therapist on site with me to discuss with him that the tenolysis has an opportunity to significantly improve his outcomes. Ethically, if we were to even pursue this option, I told him I cannot do it without agreement from another hand surgeon. And I told him I doubt anyone else would agree to it without at least trying release of the adhesions. Patient eventually agreed to the tenolysis because we discussed the post op protocol which would be significantly less restrictive and he can return to work right away. I also would perform this under local so he would get to see the motion before leaving surgery. He agreed to proceed. I reviewed risks of surgery as they pertain to this particular patient including failure of complete return of motion. Overall risks also to include, but not limited to; injury to neuro-vascular structures, muscles, tendons,or ligaments. The possibility of infection, or other wound complications. The possibility of no improvement, or worsening of the pre-op symptoms, and the need for further surgery. No guarantees were stated or implied. We will apply for [facility] approval. Patient/family acknowledges understanding of instructions: Yes Patient advised to call with questions or concerns Follow up after surgery. documented in this encounter [facility] 10-10-2022 History of Present illness Narrative Images from the original note were not included. Laureen Lombardo MD Hand & Upper Extremity Surgery [address], [facility] [address] [address], [facility] [address] [address] [facility] [address], [facility] [id number] [address], [facility] [address], [place] [address] POST-OP VISIT SERVICE DATE: 10/10/2022 SURGICAL PROCEDURE: 6 weeks 5 days status post- 1) Exploration of left small finger laceration 2) Open reduction internal fixation of left small finger open intra-articular middle phalanx fracture 3) Left small finger volar plate arthroplasty 4) Repair of left small finger FDP, zone 2 5) Left small finger FDS tenotomy 6) Direct repair of digital nerve, left small finger SURGERY DATE: 08/24/22 Mildred Dias is a 26 year old male who presents for evaluation following the above procedure. Patient is doing well postoperatively and advancing through postop protocol. Patient denies any fevers or chills. Patient denies any new drainage from the incision. Stable numbness/tingling. Pain is controlled with intermittent use of over the counter NSAIDs. Patient is working on range of motion with a home exercise program with OT Work status: has returned to work on modified duty. Wears a thermoplastic splint for the finger to protect it at work. He has limited improvement in extension of the PIP at the small finger but continues to improve in flexion. He does note that it gets in the way at the current flexion angle. PAST MEDICAL HISTORY Diagnosis Date ADD (attention deficit disorder) Patient states this was in elementary school PMH - PAST MEDICAL HISTORY OF Color Vision - Good PAST SURGICAL HISTORY Procedure Laterality Date CIRCUMCISION @ COSMETIC EAR LOBE REPAIR 11/02/2011 REPAIR FINGER TENDON 10/04/2011 right middle finger FAMILY HISTORY Problem Relation Age of Onset None Mother None Father other (Respiratory problems) Maternal Grandmother Unsure of exact disease Heart Maternal Grandfather [place] @ age 27 years Asthma Sister Social History Tobacco Use Smoking status: Former Packs/day: 1.50 Years: 9.00 Pack years: 13.50 Types: Cigarettes Quit date: 09/03/2018 Years since quittin.1 Smokeless tobacco: Never Substance Use Topics Alcohol use: No Drug use: No MEDICATIONS: No current outpatient medications on file. No current facility-administered medications for this visit. ALLERGIES: ALLERGIES No Known Allergies PHYSICAL EXAM: VITAL SIGNS: Resp 18 Ht 5' 11 (1.80m) Wt 180 lb (81.6kg) BMI 25.12 kg/(m^2). GENERAL: The patient is well developed and well nourished, awake, alert, and oriented with appropriate mood and affect. Baseline gait and station. SKIN: The skin surrounding the incision is non-erythematous. No active drainage. No fluctuance or fluid collection. Incision well healed. There is evidence of new nail growth of the ring and small finger. INSPECTION/PALPATION: There is interval improvement of swelling around the surgical site, within normal post-op limits, and no palpable joint effusion. TENDERNESS: There is is tenderness to palpation over the surgical site. ROM: There is good PIP flexion but -40 small finger PIP extension. He has not started with aggressive passive motion for this. FDP isolated testing is only about 10 deg of flexion. LIGAMENTS: Not tested patient asymptomatic. MUSCLE: Copy Holder strength is decreased due to pain. NEURO: Sensation is grossly intact to light touch in the median, ulnar, and radial distributions except for the distribution of the nerve repair VASCULAR: Strong radial pulse. Excellent capillary refill to all digits. POST OPERATIVE IMAGIN views (PA, oblique, lateral) of the left small finger were obtained, reviewed and interpreted and demonstrate no interval evidence of screw displacement or recurrent dislocation. Assessment and Plan: (Z98.890, Z87.81) S/P ORIF (open reduction internal fixation) fracture (primary encounter diagnosis) (Z98.890) S/P tendon repair (Z98.890) S/P nerve repair I reviewed the X-rays with the patient. Flexor tendon zone 2-5 protocol: He can continue to add blocking exercises but no resistance until another week from now. I would also like therapy to add passive extension so he can gain more extension at 8 weeks. Continue work light duty. Patient/family acknowledges understanding of instructions: Yes Patient advised to call with questions or concerns Follow up in 4 weeks. X-Rays Needed Laureen Lombardo MD documented in this encounter [facility] 09-19-2022 History of Present illness Narrative Episode Visit Count: 3 Therapist That Will Accept/Oversee The Plan Of Care: Ade Casas Start of Care Date: 08/29/22 Onset Date: 08/18/22 Patient Identified by Name and Date of : Yes REHABILITATION AND SPORTS THERAPY OCCUPATIONAL THERAPY TREATMENT NOTE ASSESSMENT: Mildred Dias tolerated the session with decreased symptoms. He demonstrated improvements in mobility and symptom management. The patient will continue to benefit from ongoing skilled occupational therapy to progress toward set goals. Current Frequency: 1x/week Duration: 12 weeks Total Number of Visits Planned: 12 Planned Treatment Interventions: Custom orthosis fabrication;Therapeutic exercise (94661);Prefabricated orthosis fitting;Therapeutic activities (42147);Manual therapy (95379);Neuromuscular re-education (40066);Self-chcf management (27947);Orthotics management and training (01408,[id number]);Patient/Family/Car egiver Education PLAN FOR NEXT VISIT: Patient independent in use of updated splint and updated AROM exercises. Patient agreed to wear splint at all times except hygiene and exercise and correctly demonstrated exercises. Patient given medical clearance to return to work 09/20/2022 with restrictions of no use of left hand at work. [facility] contacted to transfer care closer to home so patient can continue per protocol with therapy closer to home. Plan is to discontinue splint use at all places except work at 5 weeks postop and to continue to progress mobility and add strengthening at 8 to 10 weeks postop. Transfer of Care Due To: Closer to Home Patient transferring care to: Tiny Caal OT/CHT in [facility] SUBJECTIVE: 3 week / 5 days postop: Removed pins today and approved progression as per protocol. Allowed splint to be trimmed to hand-based and begin AROM all planes out of splint. Functional Limitations: lifting;gripping;twisting;carryi ng Pain: Pain Pain Level: 2 Pain Location: Finger - Left Description: Sore;Stiffness Frequency: Intermittent Post Treatment Pain Post Treatment Pain Level: No Change Post Treatment Pain Location: Finger - Left Post Treatment Pain Description: Sore OBJECTIVE MEASURES WITH LEVEL OF FUNCTION: Hand Skin / Wound: Scar Scar: Non-tender Edema Location: Left little finger Edema Description: Mild;Moderate Edema Measurements: Digits Edema - Digits: Little Finger R Little Finger DIP Joint (cm): 4.8 cm L Little Finger DIP Joint (cm): 6 cm Elbow AROM: WFL Wrist AROM: Left Limitation Left Hand AROM: Little Finger Thumb AROM: WFL Left Hand PROM: Little Finger;Testing not indicated Strength: (Testing not indicated) Sensation: Reports tingling or numbness (L little finger radial aspect distal from MP joint is numb) Dexterity/Coordination: Observed to be functional UE AROM L Forearm Supination: 75 Degrees L Forearm Pronation: 75 Degrees L Wrist Extension: 50 Degrees L Wrist Flexion: 60 Degrees L Wrist Radial Deviation: 20 Degrees L Wrist Ulnar Deviation: 30 Degrees Left Hand AROM: Little Finger Thumb AROM: WFL Hand AROM L Little Finger MP Extension : 0 Degrees L Little Finger MP Flexion : 58 Degrees L Little Finger PIP Extension : -44 Degrees (No passive range of motion to extend PIP due to volar plate injury. AROM only) L Little Finger PIP Flexion : 50 Degrees L Little Finger DIP Extension : 0 Degrees L Little Finger DIP Flexion: 2 Degrees Left Little Finger Total Active Movement: 66 UE PROM Left Hand PROM: Little Finger;Testing not indicated TREATMENT: Therapeutic Exercise: 1: Patient instructed in AROM of wrist and hand all planes outside of splint. Handout issued. Patient performed correctly and agreed to incorporate into home program 2: Patient instructed to perform little finger PROM into flexion only and avoid passive extension of PIP. Patient performed correctly and agreed to continue in home program 3: Patient instructed in gentle lateral blocking improve IP flexion of left little finger. Skilled Intervention: Patient was educated in proper exercise technique and purpose for exercises. Reviewed and educated patient on additions/changes for home exercise program . Skilled judgment was provided in selection of appropriate interventions. Therapeutic Activity: 1: Patient educated re: diagnosis, plan of care and post operative precautions related to ADL's 2: Since pins have been removed patient allowed to wash hand and pin site with soap and water. 3: Reviewed pain and edema reduction techniques and patient reports good compliance and home program. Skilled Intervention: Educated on proper/safe technique for activities performed today. Activity progression based on professional judgment. Reviewed and educated patient on additions/changes for home program Orthotic/Prosthetic Adjust/Train (Subsequent): OT Orthotic/Prosthetic Adjust/Train (Subsequent): Splint revised to hand-based [place] style to allow patient free wrist range of motion with splint on. Strapping replaced and splint trimmed to allow index finger mobility. Good fit noted. Patient advised to wear splint at all times except hygiene and exercise until 5 weeks postop. At 5 weeks patient can discontinue splint at all times except during work hours to maintain restrictions. Patient agreed Skilled Intervention:Clinical knowledge and skills required for custom orthotic fabrication and wearing schedule Patient/caregiver was educated in correct method for donning/doffing orthosis as well as wear and care of orthosis. Billing [facility] Session Start Time : 1600 [facility] Session Stop Time : 1655 Therapeutic Exercise Treatment Minutes: 30 Therapeutic Activity Treatment Minutes: 10 Orth/Pros Adjust/Train (subsequent) Treatment Minutes: 15 Total Treatment Time Minutes (timed/untimed): 55 BRIANA Jimenez, C[facility] documented in this encounter [facility] 09-05-2022 History of Present illness Narrative Episode Visit Count: 2 Therapist That Will Accept/Oversee The Plan Of Care: Ade Casas Start of Care Date: 08/29/22 Onset Date: 08/18/22 Patient Identified by Name and Date of : Yes REHABILITATION AND SPORTS THERAPY OCCUPATIONAL THERAPY TREATMENT NOTE ASSESSMENT: Mildred Uyen Olsener tolerated the session with no issues. He demonstrated improvements in tissue healing and edema reduction according to protocol. The patient will continue to benefit from ongoing skilled occupational therapy to progress toward set goals. Current Frequency: 1x/week Duration: 12 weeks Total Number of Visits Planned: 12 Planned Treatment Interventions: Custom orthosis fabrication;Therapeutic exercise (44412);Prefabricated orthosis fitting;Therapeutic activities (78107);Manual therapy (42933);Neuromuscular re-education (61488);Self-chcf management (92190);Orthotics management and training (34528,71341);Patient/Family/Car egiver Education PLAN FOR NEXT VISIT: Will see patient after In 2 weeks at which time plans to remove pin and allow OT to revise splint [place] style to allow for wrist mobility. Will also update all exercises as per protocol. Plan moving forward after 4 weeks postop is to refer patient to [facility] closer to home to complete treatment protocol. Transfer of Care Due To: Closer to Home Patient transferring care to: OT/CHT in [facility] SUBJECTIVE: 1 week / 5 days postop: Patient is compliant with splint and protocol but continues to have severe stiffness of the little finger with burning sensation on the radial side of little finger. Functional Limitations: lifting;gripping;twisting;carryi ng Pain: Pain Pain Level: 2 Pain Location: Finger - Left Description: Sore;Stiffness Frequency: Intermittent Post Treatment Pain Post Treatment Pain Level: No Change Post Treatment Pain Location: Finger - Left Post Treatment Pain Description: Sore OBJECTIVE MEASURES WITH LEVEL OF FUNCTION: Hand Edema Location: Left little finger Edema Description: Mild;Moderate Edema Measurements: Digits Edema - Digits: Little Finger R Little Finger DIP Joint (cm): 4.8 cm L Little Finger DIP Joint (cm): 6 cm Elbow AROM: WFL Wrist AROM: Testing not indicated Left Hand AROM: Little Finger;Testing not indicated Thumb AROM: WFL Left Hand PROM: Little Finger;Testing not indicated Strength: (Testing not indicated) Sensation: Reports tingling or numbness (L little finger radial aspect distal from MP joint is numb) Dexterity/Coordination: Observed to be functional Clinical Presentation: Other: See Comment Clinical Presentation Comments: K wire dorsal over middle phalanx L little finger UE AROM Left Hand AROM: Little Finger;Testing not indicated Thumb AROM: WFL UE PROM Left Hand PROM: Little Finger;Testing not indicated TREATMENT: Therapeutic Exercise: 1: Patient instructed in submaximal AROM within confines of the splint of all fingers. Approximately 10 degrees of motion noted at PIP and DIP of left little finger. Pin blocks extension at PIP and good pin placement maintained. 2: Reviewed performance of finger PROM within confines of splint and patient performed correctly and agreed to continue in home program. Skilled Intervention: Patient was educated in proper exercise technique and purpose for exercises. Reviewed and educated patient on additions/changes for home exercise program . Skilled judgment was provided in selection of appropriate interventions. Therapeutic Activity: 1: Patient educated re: diagnosis, plan of care and post operative precautions related to ADL's 2: Patient educated re: pin site care (per Dr. Lombardo) with hydrogren peroxide 2 times/ day . Performed in clinic by therapist and patient verbalized understanding. Written instructions provided 3: Reviewed pain and edema reduction techniques and patient reports good compliance and home program. Skilled Intervention: Educated on proper/safe technique for activities performed today. Activity progression based on professional judgment. Reviewed and educated patient on additions/changes for home program. Billing [facility] Session Start Time : 1514 [facility] Session Stop Time : 1600 Therapeutic Exercise Treatment Minutes: 30 Therapeutic Activity Treatment Minutes: 15 Total Treatment Time Minutes (timed/untimed): 45 BRIANA Jimenez,CHT documented in this encounter [facility] 09-05-2022 History of Present illness Narrative Images from the original note were not included. Laureen Lombardo MD Hand & Upper Extremity Surgery [address], [facility] [address] [address], [facility] [address] [address], [place] [address] [address], [place] [address] POST-OP VISIT SERVICE DATE: 09/05/2022 SURGICAL PROCEDURE: 12 days status post- 1) Exploration of left small finger laceration 2) Open reduction internal fixation of left small finger open intra-articular middle phalanx fracture 3) Left small finger volar plate arthroplasty 4) Repair of left small finger FDP, zone 2 5) Left small finger FDS tenotomy 6) Direct repair of digital nerve, left small finger SURGERY DATE: 08/24/22 Mildred Dias is a 26 year old male who presents for evaluation following the above procedure. Patient is doing well postoperatively and advancing through postop protocol. Patient denies any fevers or chills. Patient denies any new drainage from the incision. Continues to have radial sided small finger complete numbness/tingling. Pain is controlled with intermittent use of over the counter NSAIDs. Patient is working on range of motion with a home exercise program with OT Work status: has not returned to work He had a thermoplastic splint fabricated by therapy at the last visit. He has been compliant with splint use. He has been compliant with pin site care. PAST MEDICAL HISTORY Diagnosis Date ADD (attention deficit disorder) Patient states this was in elementary school PMH - PAST MEDICAL HISTORY OF Color Vision - Good PAST SURGICAL HISTORY Procedure Laterality Date CIRCUMCISION @ COSMETIC EAR LOBE REPAIR 11/02/2011 REPAIR FINGER TENDON 10/04/2011 right middle finger FAMILY HISTORY Problem Relation Age of Onset None Mother None Father other (Respiratory problems) Maternal Grandmother Unsure of exact disease Heart Maternal Grandfather [place] @ age 27 years Asthma Sister Social History Tobacco Use Smoking status: Former Packs/day: 1.50 Years: 9.00 Pack years: 13.50 Types: Cigarettes Quit date: 09/03/2018 Years since quittin.0 Smokeless tobacco: Never Substance Use Topics Alcohol use: No Drug use: No MEDICATIONS: No current outpatient medications on file. No current facility-administered medications for this visit. ALLERGIES: ALLERGIES No Known Allergies PHYSICAL EXAM: VITAL SIGNS: Resp 18 Ht 5' 11 (1.80m) Wt 180 lb (81.6kg) BMI 25.12 kg/(m^2). GENERAL: The patient is well developed and well nourished, awake, alert, and oriented with appropriate mood and affect. Baseline gait and station. SKIN: The skin surrounding the incision is non-erythematous. No active drainage. No fluctuance or fluid collection. Incision well approximated INSPECTION/PALPATION: There is interval improvement of swelling around the surgical site, within normal post-op limits, and no palpable joint effusion. TENDERNESS: There is is tenderness to palpation over the surgical site. ROM: There is limited DIP flexion LIGAMENTS: Not tested. MUSCLE: Copy Holder strength is decreased due to pain. NEURO: Sensation is grossly intact to light touch in the median, ulnar, and radial distributions. VASCULAR: Strong radial pulse. Excellent capillary refill to all digits. POST OPERATIVE IMAGIN views (PA, oblique, lateral) of the left small finger were obtained, reviewed and interpreted and demonstrate no interval displacement of the central compacted fragment. The lateral does not show complete extension and therefore it is difficult to assess but the joint does appear congruent. Assessment and Plan: (J60.545E) Laceration of left little finger with foreign body without damage to nail, subsequent encounter (primary encounter diagnosis) (Z98.890) S/P tendon repair (Z98.890, Z87.81) S/P ORIF (open reduction internal fixation) fracture (Z98.890) S/P nerve repair I reviewed the X-rays with the patient. Reviewed intra-op findings with the patient. We will keep his Michael wire to protect the volar plate arthroplasty for 2 additional weeks. We will also keep the felt button and suture held there for that time. I think it is appropriate to keep out of work during this time to help avoid infection risk. Flexor tendon zone 2-5 protocol: Patient will be maintained in forearm based dorsal block splint with wrist at neutral, MP s at 50 degrees of flexion and IP s fully extended for 3 week post-operatively. No passive wrist extension or finger extension. Focus is on wound care and edema control. At 4 weeks, will transition the splint to hand based and initiate active exercises in all 3 fist positions. At 5 weeks patient will discontinue the splint and add blocking exercises but no resistance until week 8 post-op. I discussed nerve repair. Nerve regenerates at approximately 1 mm/day. Prognosis is effected by patient age, delay in repair, level of the injury, nature of the injury. A positive Tinel's or zingers spontaneously may indicate that the nerve is healing. Persistent worsening pain would indicate a poor outcome. Patient/family acknowledges understanding of instructions: Yes Patient advised to call with questions or concerns Follow up in 2 weeks. X-Rays Needed Laureen Lombardo MD documented in this encounter [facility] 08-29-2022 History of Present illness Narrative Episode Visit Count: 1 Therapist That Will Accept/Oversee The Plan Of Care: Ade Casas Start of Care Date: 08/29/22 Onset Date: 08/18/22 Patient Identified by Name and Date of : Yes [facility] OCCUPATIONAL THERAPY EVALUATION PLAN OF CARE: Assessment: Mildred Dias presents with diagnosis of Laceration of left little finger with foreign body without damage to nail, Open displaced fracture of middle phalanx of left little finger, Laceration of digital nerve of finger, and Flexor tendon laceration of finger with open wound that interferes with lifting;gripping;twisting;carryi ng . He presents with impairments in edema management, independence in exercise, overall function, and range of motion. PROMIS (Patient-Reported Outcomes Measurement Information System) scores were reviewed and physical function domain identified as a rehabilitation concern. Prognosis for therapy is Good due to: current objective clinical presentation;good overall health status . At this time he requires the use of a custom orthosis for protection of surgical repair He will benefit from skilled therapy services to meet the goals established for this plan of care as noted below. Goals for Episode of Care created on 08/29/22 through 11/27/22 Patient will report a good understanding of diagnosis and OT recommendations for progression of program. Patient will improve function in Left finger in order to be able to perform prior functional tasks. Patient will report a decrease in pain in Left finger to 1/10 with prior functional tasks. Patient will increase AROM of Left finger to be 80-90% of right in order to be able to improve function for prior functional tasks. Patient will independently demonstrate correct application of CUSTOM orthosis and verbalize understanding of proper wear/care. MET Patient will report a good understanding of edema control, scar / wound management throughout therapy plan of care to promote non-adherent / non-tender soft tissue. Patient will independently demonstrate sensory re-education/desensitization techniques with his/her home program. Patient Goals: move finger, normal use Planned Interventions, Frequency, and Duration: Current Frequency: 1x/week Duration: 12 weeks Total Number of Visits Planned: 12 Planned Treatment Interventions: Custom orthosis fabrication;Therapeutic exercise (53021);Prefabricated orthosis fitting;Therapeutic activities (40538);Manual therapy (99023);Neuromuscular re-education (24648);Self-chcf management (66649);Orthotics management and training (83443,28941);Patient/Family/Car egiver Education PLAN FOR NEXT VISIT: Patient to contact OT for orthosis modifications as needed. Review/ update home program. Patient demonstrates good understanding of plan of care and treatment. The above goals and plan of care were discussed and agreed upon by patient/family. SUBJECTIVE: Mildred Dias is a 26 year old male seen today for Post op custom orthosis for left hand. 5 days post op today. High spring injury changing a window , lacerating left litlle finger. Unable to bend finger. To ED same day. Surgery 08/24/22. Functional Limitations: lifting;gripping;twisting;carryi ng Prior Level of Function: Independent without limitations Patient Goals: move finger, normal use Intake Information: Prescription present Previous Treatment: Surgery Falls Interview: No positive findings with falls interview Relevant History Preferred Language: Slovenian Right or Left Handed: Right Home Environment Patient Lives With: Family Pain: Pain Pain Level: 4 Pain Location: Finger - Left Description: Shooting;Sharp Frequency: Continuous Post Treatment Pain Post Treatment Pain Level: No Change PROMIS Scales Higher is Better 08/29/2022 Phys Func - Score 33 (moderate dysfunction) Phys Func - Percentile 4 % GH Physical - Score 47.7 (Good) GH Physical - Percentile 41 % GH Mental - Score 45.8 (Good) GH Mental - Percentile 34 % Self-Eff Symptom - Score 48 (Average) Self-Eff Symptom - Percentile 42 % T-scores: mean of general population = 50. 5 points is clinically meaningfully difference Percentiles provide an indication of how the patient's score ranks in relation to the general population. Higher percentile rankings indicate better function/quality of life. 50th percentile is the average of the general population and indicates half of respondents had a worse score. T-scores: mean of general population = 50. 5 points is clinically meaningfully difference Percentiles provide an indication of how the patient's score ranks in relation to the general population. Higher percentile rankings indicate better function/quality of life. 50th percentile is the average of the general population and indicates half of respondents had a worse score. OBJECTIVE MEASURES WITH LEVEL OF FUNCTION: Hand Edema Location: Left little finger Edema Description: Mild;Moderate Elbow AROM: WFL Wrist AROM: Testing not indicated Right Hand AROM: Testing not indicated Thumb AROM: WFL Left Hand PROM: Little Finger;Testing not indicated Strength: (Testing not indicated) Sensation: Denies tingling or numbness (L little finger radial aspect distal from MP joint) Dexterity/Coordination: Not Tested Clinical Presentation: (K wire dorsal over middle phalanx L little finger) UE AROM Right Hand AROM: Testing not indicated Thumb AROM: WFL UE PROM Left Hand PROM: Little Finger;Testing not indicated Education: Education Learning Preferences: Demonstration;Explanation;Perfor donovan;Printed Materials Barriers: None Learning/educational needs: Procedure / Surgery;Home exercise program;Plan of Care;Brace Fit TREATMENT: OT Treatment Interventions : Therapeutic Activity;Custom Orthosis/Splint Fabrication Evaluation Therapeutic Activity: 1: Post operative immobilization/ dressings removed. Skin/ incision site care performed with washcloth and patient instructed re: same to be performed daily 2: Patient educated re: pin site care (per Dr. Lombardo) with hydrogren peroxide 2 times/ day . Performed in clinic by therapist and patient verbalized understanding. Written instructions provided 3: Patient educated re: diagnosis, plan of care and post operative precautions related to ADL's 4: Finger PROM index, middle, ring composite flexion; gentle little finger DIP flexion/extension 5: Patient educated re: edema management - elevation Skilled Intervention: Provided written instruction for home program to facilitate proper performance and compliance. Correct performance of home program was facilitated with verbal and visual cueing. Custom orthosis: L 3808 WHFO w/out joints (long opponens, thumb spica, intrinsic gutter, resting, anti-spasticity, EXOS, dorsal block) (dorsal blocking splint , wrist neutral, MP 50 degrees flexion) Custom orthosis to provide immobilization, protection and support of left hand and wrist to promote healing, OT provided patient with education/ written instructions for orthosis care and precautions., and Pt practiced orthosis application, donning on/off while under OT's supervision.. Patient was instructed in care of orthosis and wearing schedule time study engineer except skin / pin site care. Skilled Intervention: Clinical knowledge and skills required for custom orthotic fabrication and wearing schedule Patient/caregiver was educated in correct method for donning/doffing orthosis as well as wear and care of orthosis. Patient/Family/Caregiver Education: Precautions, purpose and use of orthosis Discussed management of any symptoms related to wearing the orthosis Billing * Evaluation Low Complexity: 1 Unit Therapeutic Activity Treatment Minutes: 15 * L 3808 WHFO w/out joints (long opponens, thumb spica, intrinsic gutter, resting, anti-spasticity, EXOS, dorsal block) Quantity: 1 Fabrication time for custom splint (minutes): 15 BRIANA Vitale, CHT documented in this encounter [facility] 08-21-2022 Note HNO ID: [id number] Author: Laureen Lombardo MD Service: ? Author Type: Physician Type: Progress Notes Filed: 09/11/2022 11:52 AM Note Text: Fouad Operative Scheduling Details Diagnosis: 1) laceration of left small finger 2) left small finger middle phalanx intra-articular fracture 3) left small finger digital nerve laceration 4) left small finger flexor tendon laceration Procedure: Exploration of left small finger laceration with repair of digital nerve, possible repair of flexor tendon, open reduction internal fixation of left small finger middle phalanx intra-articular fracture OR Time Needed: 2.5 hours [place] [facility] (Sunday) Equipment Request: mini C-arm, 1.0 mm Arthrex screws, 0.035 Kirshner wires, power, Lead hand, 9-0 Nylon suture Anesthesia: MAC/Regional Post op appointment: 7-10 days Inpatient stay: No Block Needed: Yes Pre Testing Needed: No Occupational Therapy: 3-[address] [facility] 08-21-2022 Note HNO ID: [id number] Author: RT April(R) Service: ? Author Type: Technologist Type: Progress Notes Filed: 08/21/2022 1:49 PM Note Text: Radiology Service Progress Note PATIENT NAME: Mildred Dias DATE OF SERVICE: August 21, 2022 TIME: 1:49 PM PATIENT IDENTITY VERIFICATION COMPLETED USING TWO (2) IDENTIFIERS: Name and Date of confirmed by patient verbally and Name and Date of confirmed by identification band. FALL SCREENING: Has the patient had 2 falls in the last year or 1 fall with injury or currently using an Ambulatory Assistive Device (Walker, Cane, Wheelchair, Crutches, etc.)? No PATIENT GENDER DATA: Male PATIENT RELEVANT IMPLANT DATA REVIEWED: Not Applicable RADIOLOGY DEPARTMENT: General X-ray: Exam(s) Completed: Upper Extremity X-Ray(s): Fingers/Thumb, left PERIPHERAL IV DATA: Not applicable SIGNED BY: RT April(Baljeet) August 21, 2022 1:[address] [facility] 08-21-2022 Note HNO ID: [id number] Author: Laureen Lombardo MD Service: ? Author Type: Physician Type: Progress Notes Filed: 09/11/2022 11:52 AM Note Text: Laureen Calderon MD Hand AND Upper Extremity Surgery [address], [address], [place] [address] [address], [facility] [address] [address] [facility] [address], [facility] [address] [address], [address], [place] [address] OUTPATIENT VISIT SERVICE DATE: 08/21/2022 CHIEF COMPLAINT: Left small finger laceration HISTORY OF PRESENT ILLNESS: Mildred Dias is a Left Handed 26 year old male who presents for above chief complaint. Patient is here for ED Follow up. Patient does recall a specific injury. He was working on a window when a high-energy spring dislodged and he sustained a laceration over the volar radial aspect of the small finger near the PIP joint. He has been unable to flex the distal interphalangeal joint of the left small finger since the injury. He is also complaining of numbness and tingling to the radial aspect of the small finger. He does state that there was significant bleeding after the injury. Patient has a history of extensor tendon laceration on the contralateral hand that required extensive therapy as well. Symptoms aggravated by: Attempted motion of the left small finger Occupation/Activities: [employer] PMDP report reviewed and All prescriptions have been APPROPRIATELY filled. No suspicious activity was identified. SUPPLEMENTAL DATA REVIEWED: Most recent imaging and ED visit notes History is obtained from: patient Reviewed nursing note and current pain scale. PAST MEDICAL HISTORY Diagnosis Date ADD (attention deficit disorder) Patient states this was in elementary school PMH - PAST MEDICAL HISTORY OF Color Vision - Good PAST SURGICAL HISTORY Procedure Laterality Date CIRCUMCISION @ COSMETIC EAR LOBE REPAIR 11/02/2011 REPAIR FINGER TENDON 10/04/2011 right middle finger FAMILY HISTORY Problem Relation Age of Onset None Mother None Father other (Respiratory problems) Maternal Grandmother Unsure of exact disease Heart Maternal Grandfather [place] @ age 27 years Asthma Sister Social History Tobacco Use Smoking status: Former Packs/day: 1.50 Years: 9.00 Pack years: 13.50 Types: Cigarettes Quit date: 09/03/2018 Years since quittin.0 Smokeless tobacco: Never Substance Use Topics Alcohol use: No Drug use: No MEDICATIONS: No current outpatient medications on file. No current facility-administered medications for this visit. ALLERGIES: ALLERGIES No Known Allergies PHYSICAL EXAM: VITAL SIGNS: Pulse 94 Ht 5' 11 (1.80m) Wt 180 lb (81.6kg) SpO2 97% BMI 25.12 kg/(m2). GENERAL: The patient is well developed and well nourished, awake, alert, and oriented with appropriate mood and affect. Normal gait and station. SKIN: The skin over the left hand shows no rash lesion or erythema, and that is comparable to the contralateral hand. No ecchymosis noted over the dorsum of the hand and finger. There is a well approximated laceration over the radial aspect of the left small finger at the volar proximal phalanx. INSPECTION/PALPATION: There is no obvious asymmetry compared to the contralateral hand. No palpable defects. There is generalized swelling about the left small finger. No palpable joint effusion. TENDERNESS: There is tenderness to palpation over the left small finger PIP joint. ROM: No rotational deformity noted with active flexion. There is no intact flexion at the PIP or DIP joints. There is intact flexion at the MP joint. LIGAMENTS: Defered due to known fracture. MUSCLE: Strength testing deferred due to known fracture. No atrophy present. NEURO: The patient reports decreased sensation to the digit over the radial aspect of the finger. VASCULAR: Strong radial pulse. Excellent capillary refill to all digits. IMAGING PER MY INTERPRETATION: X-rays of the left small finger from outpatient [facility] radiology were reviewed and demonstrate comminuted fracture of the base of the middle phalanx with greater than 50% of the joint involved. There is no supriya dislocation due to the flexed posture of the small finger in this imaging. However it is suspicious for an unstable injury given the pattern. ASSESSMENT AND PLAN: (S61.227A) Laceration of left little finger with foreign body without damage to nail, initial encounter (primary encounter diagnosis) (S62.487B) Displaced fracture of middle phalanx of left little finger, initial encounter for open fracture (S64.40XA) Laceration of digital nerve of finger, initial encounter I reviewed the X-rays with the patient. I discussed with the patient that given their clinical examination today and the traumatic laceration, there is a risk of injury to the flexor tendons as well as the digital neurovascular bundle on the radial side. Therefore, and to decrease risk of infection, I recommend explor (more content not included)... [facility] 08-21-2022 History of Present illness Narrative Kvng Operative Scheduling Details Diagnosis: 1) laceration of left small finger 2) left small finger middle phalanx intra-articular fracture 3) left small finger digital nerve laceration 4) left small finger flexor tendon laceration Procedure: Exploration of left small finger laceration with repair of digital nerve, possible repair of flexor tendon, open reduction internal fixation of left small finger middle phalanx intra-articular fracture OR Time Needed: 2.5 hours [place] or ASC or [place]: [facility] (Sunday) Equipment Request: mini C-arm, 1.0 mm Arthrex screws, 0.035 Kirshner wires, power, Lead hand, 9-0 Nylon suture Anesthesia: MAC/Regional Post op appointment: 7-10 days Inpatient stay: No Block Needed: Yes Pre Testing Needed: No Occupational Therapy: 3-5 days Images from the original note were not included. Laureen Calderon MD Hand & Upper Extremity Surgery [address] [place] [address], [address], [facility] [address] [address], [facility] [address] [address] [facility], [address], [facility] [address] [address], [address], [place] [address] OUTPATIENT VISIT SERVICE DATE: 08/21/2022 CHIEF COMPLAINT: Left small finger laceration HISTORY OF PRESENT ILLNESS: Mildred Dias is a Left Handed 26 year old male who presents for above chief complaint. Patient is here for ED Follow up. Patient does recall a specific injury. He was working on a window when a high-energy spring dislodged and he sustained a laceration over the volar radial aspect of the small finger near the PIP joint. He has been unable to flex the distal interphalangeal joint of the left small finger since the injury. He is also complaining of numbness and tingling to the radial aspect of the small finger. He does state that there was significant bleeding after the injury. Patient has a history of extensor tendon laceration on the contralateral hand that required extensive therapy as well. Symptoms aggravated by: Attempted motion of the left small finger Occupation/Activities: [employer] PMDP report reviewed and All prescriptions have been APPROPRIATELY filled. No suspicious activity was identified. SUPPLEMENTAL DATA REVIEWED: Most recent imaging and ED visit notes History is obtained from: patient Reviewed nursing note and current pain scale. PAST MEDICAL HISTORY Diagnosis Date ADD (attention deficit disorder) Patient states this was in elementary school PMH - PAST MEDICAL HISTORY OF Color Vision - Good PAST SURGICAL HISTORY Procedure Laterality Date CIRCUMCISION @ COSMETIC EAR LOBE REPAIR 11/02/2011 REPAIR FINGER TENDON 10/04/2011 right middle finger FAMILY HISTORY Problem Relation Age of Onset None Mother None Father other (Respiratory problems) Maternal Grandmother Unsure of exact disease Heart Maternal Grandfather [place] @ age 27 years Asthma Sister Social History Tobacco Use Smoking status: Former Packs/day: 1.50 Years: 9.00 Pack years: 13.50 Types: Cigarettes Quit date: 09/03/2018 Years since quittin.0 Smokeless tobacco: Never Substance Use Topics Alcohol use: No Drug use: No MEDICATIONS: No current outpatient medications on file. No current facility-administered medications for this visit. ALLERGIES: ALLERGIES No Known Allergies PHYSICAL EXAM: VITAL SIGNS: Pulse 94 Ht 5' 11 (1.80m) Wt 180 lb (81.6kg) SpO2 97% BMI 25.12 kg/(m^2). GENERAL: The patient is well developed and well nourished, awake, alert, and oriented with appropriate mood and affect. Normal gait and station. SKIN: The skin over the left hand shows no rash lesion or erythema, and that is comparable to the contralateral hand. No ecchymosis noted over the dorsum of the hand and finger. There is a well approximated laceration over the radial aspect of the left small finger at the volar proximal phalanx. INSPECTION/PALPATION: There is no obvious asymmetry compared to the contralateral hand. No palpable defects. There is generalized swelling about the left small finger. No palpable joint effusion. TENDERNESS: There is tenderness to palpation over the left small finger PIP joint. ROM: No rotational deformity noted with active flexion. There is no intact flexion at the PIP or DIP joints. There is intact flexion at the MP joint. LIGAMENTS: Defered due to known fracture. MUSCLE: Strength testing deferred due to known fracture. No atrophy present. NEURO: The patient reports decreased sensation to the digit over the radial aspect of the finger. VASCULAR: Strong radial pulse. Excellent capillary refill to all digits. IMAGING PER MY INTERPRETATION: X-rays of the left small finger from outpatient [facility] radiology were reviewed and demonstrate comminuted fracture of the base of the middle phalanx with greater than 50% of the joint involved. There is no supriya dislocation due to the flexed posture of the small finger in this imaging. However it is suspicious for an unstable injury given the pattern. ASSESSMENT AND PLAN: (G91.968A) Laceration of left little finger with foreign body without damage to nail, initial encounter (primary encounter diagnosis) (T82.957B) Displaced fracture of middle phalanx of left little finger, initial encounter for open fracture (S64.40XA) Laceration of digital nerve of finger, initial encounter I reviewed the X-rays with the patient. I discussed with the patient that given their clinical examination today and the traumatic laceration, there is a risk of injury to the flexor tendons as well as the digital neurovascular bundle on the radial side. Therefore, and to decrease risk of infection, I recommend exploration of the traumatic laceration with repair of structures as indicated. I discussed the different post-operative scenarios if the tendon and/or nerve are injured. Simultaneously, the wound would be debrided of any contamination with or without cultures pending intraoperative evaluation. Patient verbalized understanding and agreement with plan. I also spent a significant mount of time explaining to him the risk of instability given the middle phalanx fracture pattern. I discussed with him that first attempt would be open reduction internal fixation of the fracture as this would ultimately give him the best outcome. The biggest risk of this would be stiffness and he has a risk of arthritis prematurely from the trauma alone. Patient verbalized understanding of this. Also discussed with him that if unable to perform ORIF the backup plan is a Juan hamate reconstruction. After explaining the reconstruction patient states that he would rather not undergo that option to prevent any risks of injury at the wrist. Therefore the alternative would be a volar plate arthroplasty but I did review with him that the results of this are less satisfactory overall. He verbalized understanding and agreement with this plan. We also discussed that there is sometimes an external fixation device that I can place using Michael wires however I do not think with traction that this fracture could be stabilized and therefore this is the least likely option. Finally discussed the extensive rehab protocol for flexor tendon injuries and plans for return to work. Patient/family acknowledges understanding of instructions: Yes Patient advised to call with questions or concerns Follow up post-operatively. X-Rays Needed Laureen Calderon MD This note was generated using [employer] voice dictation. All resonable efforts were made to correct dictation errors but they still may occur given the nature of the software. Phone: [phone] FAX: [phone] (Toidw) Medical Decision Making: Problems: Moderate: Acute complicated injury Data: Unique test result(s) reviewed: 1 Risk: High: High risk from testing/treatment Medical Decision Making Level: 4 - Moderate documented in this encounter [facility] 08-21-2022 History of Present illness Narrative Radiology Service Progress Note PATIENT NAME: Mildred Dias DATE OF SERVICE: August 21, 2022 TIME: 1:49 PM PATIENT IDENTITY VERIFICATION COMPLETED USING TWO (2) IDENTIFIERS: Name and Date of confirmed by patient verbally and Name and Date of confirmed by identification band. FALL SCREENING: Has the patient had 2 falls in the last year or 1 fall with injury or currently using an Ambulatory Assistive Device (Walker, Cane, Wheelchair, Crutches, etc.)? No PATIENT GENDER DATA: Male PATIENT RELEVANT IMPLANT DATA REVIEWED: Not Applicable RADIOLOGY DEPARTMENT: General X-ray: Exam(s) Completed: Upper Extremity X-Ray(s): Fingers/Thumb, left PERIPHERAL IV DATA: Not applicable SIGNED BY: RT April(R) August 21, 2022 1:49 PM documented in this encounter [facility] 04-11-2022 History of Present illness Narrative Subjective HPI HPI Mildred Dias is a 26 year old male who presents today for CC of right ear pressure. This started few weeks ago. Has tried using curette in ear to relief/made worse. Risk factors hx of cerumen impactions, uses ear plugs for work daily. Denies qtip usage. .Patient presents with: Ear Pain: Pt presented bilateral ear pain rated 1, x2 wks decreased hearing PAST MEDICAL HISTORY Diagnosis Date ADD (attention deficit disorder) PMH - PAST MEDICAL HISTORY OF Color Vision - Good PAST SURGICAL HISTORY Procedure Laterality Date CIRCUMCISION,OTHR, @ COSMETIC EAR LOBE REPAIR 11/2011 REPAIR FINGER TENDON 10/2011 ALLERGIES Peptobismil [Other] MEDICATIONS fluticasone-salmeterol (ADVAIR DISKUS) 100-50 mcg/dose dsdv Inhale 1 Puff as instructed twice daily. Rinse mouth out after use with water. (Patient not taking: Reported on 10/13/2019 ) albuterol HFA (PROAIR HFA) 90 mcg/actuation inhaler Inhale 2 Puffs as instructed every 4 hours as needed. (Patient not taking: Reported on 10/13/2019 ) cholecalciferol, vitamin D3, (VITAMIN D3 ORAL) Take by mouth once daily. (Patient not taking: Reported on 06/02/2021 ) sildenafil (REVATIO) 20 mg tablet Take 1 tablet by mouth as directed. 1-5 tablet(s) 20 mg-100 mg, 30 min prior to intercourse, on empty stomach (Patient not taking: Reported on 04/11/2022) FAMILY HISTORY Problem Relation Age of Onset None Mother None Father other (Respiratory problems) Maternal Grandmother Unsure of exact disease Heart Maternal Grandfather [place] @ age 27 years Asthma Sister Social History Tobacco Use Smoking status: Former Packs/day: 1.50 Years: 6.00 Pack years: 9.00 Types: Cigarettes Quit date: 09/03/2018 Years since quittin.6 Smokeless tobacco: Never Substance Use Topics Alcohol use: No Drug use: No ROS Objective Blood pressure 118/70, pulse 103, temperature 36.9 C (98.4 F), resp. rate 16, weight 83.4 kg (183 lb 12.8 oz), SpO2 99 %. Physical Exam Constitutional: General: He is not in acute distress. Appearance: He is not toxic-appearing or diaphoretic. HENT: Head: Normocephalic and atraumatic. Right Ear: Hearing and external ear normal. Left Ear: Hearing and external ear normal. Ears: Comments: Initially unable to see bilat tm d/t cerumen impaction Procedure: provider/curette/alligator forceps MA and lavage After procedure bilat ear canals clear and tm normal. Nose: Nose normal. Pulmonary: Effort: Pulmonary effort is normal. No accessory muscle usage or respiratory distress. Neurological: Mental Status: He is alert and oriented to person, place, and time. ASSESSMENT/PLAN: 1. Bilateral impacted cerumen - ICD9: 380.4, ICD10: H61.23 Successful lavage and curettage of canal cerumen impaction. Discussed proper ear hygiene Follow up for continued s/s. Morgan Lora APRN.ASSISTANT FITNESS MANAGER documented in this encounter [facility] Evaluation note No assessment inform ation available [facility] Work Phone: Evaluation note Diagnosis Bilateral impacted cerumen- Primary Impacted cerumen [facility] Diagnosis Laceration of left little finger with foreign body without damage to nail, initial encounter- Primary Open displaced fracture of middle phalanx of left little finger, initial encounter Laceration of digital nerve of finger, initial encounter Flexor tendon laceration of finger with open wound, initial encounter Laceration of left little finger with foreign body without damage to nail, initial encounter Open displaced fracture of middle phalanx of left little finger, initial encounter Laceration of digital nerve of finger, initial encounter Flexor tendon laceration of finger with open wound, [facility] Pain in finger of left hand- Primary Pain in limb Decreased range of motion of finger of left hand [facility] Diagnosis Laceration of left little finger with foreign body without damage to nail, subsequent encounter- Primary [facility] Diagnosis Laceration of left little finger with foreign body without damage to nail, initial encounter- Primary Displaced fracture of middle phalanx of left little finger, initial encounter for open fracture Laceration of digital nerve of finger, initial encounter [facility] Diagnosis Laceration of left little finger with foreign body without damage to nail, subsequent encounter- Primary S/P tendon repair Other postprocedural status S/P ORIF (open reduction internal fixation) fracture Other postprocedural status S/P nerve repair [facility] Diagnosis Laceration of left little finger with foreign body without damage to nail, subsequent encounter- Primary [facility] Diagnosis S/P ORIF (open reduction internal fixation) fracture- Primary Other postprocedural status S/P tendon repair Other postprocedural status S/P nerve repair [facility] Diagnosis Finger stiffness, left- Primary S/P ORIF (open reduction internal fixation) fracture Other postprocedural status S/P tendon repair Other postprocedural status S/P nerve repair Tobacco abuse Tobacco use disorder [facility] Diagnosis Finger stiffness, left- Primary Finger stiffness, left [facility] Diagnosis Post-operative state- Primary Other postprocedural status Finger stiffness, left [facility] Diagnosis Post-operative state- Primary Other postprocedural status Finger stiffness, left [facility] Diagnosis Finger stiffness, left- Primary S/P tendon repair Other postprocedural status S/P nerve repair [facility] Diagnosis Finger stiffness, left- Primary S/P tendon repair Other postprocedural status S/P nerve repair Finger stiffness, left S/P tendon repair Other postprocedural status S/P nerve repair [facility] S/P surgical amputation of finger, left- Primary [facility] Diagnosis S/P surgical amputation of finger, left- Primary [facility] Diagnosis Paronychia of finger of left hand- Primary [facility] Diagnosis Acute cough- Primary Rhinosinusitis Unspecified sinusitis (chronic) Acute cough [facility] Diagnosis Acute cough [facility] Diagnosis Paronychia of left thumb- Primary Onychia and paronychia of finger [facility] Additional Instructions Your EKG and chest x-ray were normal. Your physical exam is normal. Follow-up with your doctor if not improving. Return if worse.[facility] Work Phone: Hospital Discharge instructions Additional Instructions Open left pinky fracture with concerning flexor tendon laceration of same finger. Comminuted intra-articular fracture at the PIP joint. Two-point sensation loss distal to the wound on the radial aspect of the pinky. Take antibiotic as prescribed. Maintain splint in that flexed position. Follow-up with Dr. Lombardo. Call on Sunday. Office will also reach out to you. Dr. Lobmardo [phone] Work Phone: Reason for referral (narrative)* Diagnostic Procedure Only (Routine) - Closed Specialty Diagnoses / Procedures Referred By Flor mcgraw Referred To Contact XR IMAGING Diagnoses Laceration of left little finger with foreign body without damage to nail, initial encounter Procedures XR DIGIT GENERAL 3V FRONTAL/LAT/OBL LEFT RADEX FINGR MINIMUM 2 VIEWS Laureen Lombardo MD [address] [place] [address] Xr Imaging Referral ID Status Reason Start Date Expiration Date V isits Requested Visits Authorized [id number] Closed Auto-Generate d Referral 08/21/2022 09/20/2023 1 1 [facility] for referral (narrative)* Diagnostic Procedure Only (Routine) - Pending Review Specialty Diagnoses / Procedures Referred By Contac t Referred To Contact XR IMAGING Diagnoses Laceration of left little finger with foreign body without damage to nail, subsequent encounter S/P tendon repair S/P ORIF (open reduction internal fixation) fracture S/P nerve repair Procedures XR DIGIT GENERAL 3V FRONTAL/LAT/OBL LEFT RADEX FINGR MINIMUM 2 VIEWS Laureen Lombardo MD [address] [place] [address] Xr Imaging Referral ID Status Reason Start Date Expiration Date Visits Requested Visits Authorized [id number] Pending Review Auto-Generat ed Referral 09/05/2022 10/05/2023 1 1 [facility] for referral (narrative)* Diagnostic Procedure Only (Routine) - Pending Review Specialty Diagnoses / Procedures Referred By Contac t Referred To Contact XR IMAGING Diagnoses S/P ORIF (open reduction internal fixation) fracture Procedures XR DIGIT GENERAL 3V FRONTAL/LAT/OBL LEFT RADEX FINGR MINIMUM 2 VIEWS Laureen Lombardo MD [address] [place] [address] Xr Imaging Referral ID Status Reason Start Date Expiration Date Visits Requested Visits Authorized [id number] Pending Review Auto-Generat ed Referral 10/10/2022 11/09/2023 1 1 [facility] for referral (narrative)* Diagnostic Procedure Only (Routine) - Pending Review Specialty Diagnoses / Procedures Referred By Contac t Referred To Contact XR IMAGING Diagnoses Post-operative state Finger stiffness, left Procedures XR DIGIT GENERAL 3V FRONTAL/LAT/OBL LEFT RADEX FINGR MINIMUM 2 VIEWS Laureen Lombardo MD [address] [place] [address] Xr Imaging Referral ID Status Reason Start Date Expiration Date Visits Requested Visits Authorized [id number] Pending Review Auto-Generat ed Referral 02/06/2023 03/07/2024 1 1 [facility] Diagnostic Procedure Only (Routine) - Closed Specialty Diagnoses / Procedures Referred By Flor mcgraw Referred To Contact XR IMAGING Diagnoses Laceration of left little finger with foreign body without damage to nail, initial encounter Procedures XR DIGIT GENERAL 3V FRONTAL/LAT/OBL LEFT RADEX FINGR MINIMUM 2 VIEWS Laureen Calderon MD [address] [place] [address] Xr Imaging Referral ID Status Reason Start Date Expiration Date V isits Requested Visits Authorized [id number] Closed Auto-Generate d Referral 08/21/2022 09/20/2023 1 1 [facility] Family History No Family History Records Found Relationship Condition Age at Onset Recorded Date/T forest grandfather Myocardial infarction Unknown sister Asthma Unknown Chief Complaint and Reason for Visit Chief Complaint cp Chief Complaint cp LAC left pinky Chief Complaint L HAND/PINKY FX/LACE RATION. PT HAS RX Chief Complaint AMPUTATION OF FINGER , LEFT HAND. RX HERE Advance Directives No Advanced Directives Records Found Advance Directive Response Recorded Date/ Time Living Will No April 20 11:53am Power of Pocket And Pulley Machine Operator No April 20 11:53am Advance Directive Response Recorded Date/ Time Living Will No August 18 3:57pm Power of Pocket And Pulley Machine Operator No August 18, 2022 3:57pm Advance Directive Response Recorded Date/ Time Living Will No August 18 4:57pm Power of Pocket And Pulley Machine Operator No August 18, 2022 4:57pm Reason for Referral Specialty Diagnoses / Procedures Referred By Flor mcgraw Referred To Contact [facility] Diagnoses Pain in finger of left hand Decreased range of motion of finger of left hand Procedures OT REHAB FOLLOW UP ORDER THERAPEUT ACTVITY DIRECT PT CONTACT EACH 15 MIN Ot [address] [address] [place] [address] [facility] [address] [place] [address] Referral ID Status Reason Start Date Expiration Date Visits Requested Visits Authorized [id number] Pending Review PCP Requested Referral Auto-Generate d Referral 2 11/27/2022 1 1 Summary Purpose Additional Source Comments Goals (unrecognized section and content) Goals may be documented in a n alternate sectionGoals may be documented in an alternate sectionGoals may be documented in an alternate sectionGoals may be documented in an alternate sectionGoals may be documented in an alternate section Source Comments (unrecognize d section and content) In the event this informatio n is protected by the Federal Confidentiality of Alcohol and Drug Abuse Patient Records regulations: The Federal rules restrict any use of the information to criminally investigate or prosecute any alcohol or drug abuse patient.[facility] the event this information is protected by the Federal Confidentiality of Alcohol and Drug Abuse Patient Records regulations: The Federal rules restrict any use of the information to criminally investigate or prosecute any alcohol or drug abuse patient.[facility] the event this information is protected by the Federal Confidentiality of Alcohol and Drug Abuse Patient Records regulations: The Federal rules restrict any use of the information to criminally investigate or prosecute any alcohol or drug abuse patient.[facility] the event this information is protected by the Federal Confidentiality of Alcohol and Drug Abuse Patient Records regulations: The Federal rules restrict any use of the information to criminally investigate or prosecute any alcohol or drug abuse patient.[facility] the event this information is protected by the Federal Confidentiality of Alcohol and Drug Abuse Patient Records regulations: The Federal rules restrict any use of the information to criminally investigate or prosecute any alcohol or drug abuse patient.[facility] the event this information is protected by the Federal Confidentiality of Alcohol and Drug Abuse Patient Records regulations: The Federal rules restrict any use of the information to criminally investigate or prosecute any alcohol or drug abuse patient.[facility] the event this information is protected by the Federal Confidentiality of Alcohol and Drug Abuse Patient Records regulations: The Federal rules restrict any use of the information to criminally investigate or prosecute any alcohol or drug abuse patient.[facility] the event this information is protected by the Federal Confidentiality of Alcohol and Drug Abuse Patient Records regulations: The Federal rules restrict any use of the information to criminally investigate or prosecute any alcohol or drug abuse patient.[facility] the event this information is protected by the Federal Confidentiality of Alcohol and Drug Abuse Patient Records regulations: The Federal rules restrict any use of the information to criminally investigate or prosecute any alcohol or drug abuse patient.[facility] the event this information is protected by the Federal Confidentiality of Alcohol and Drug Abuse Patient Records regulations: The Federal rules restrict any use of the information to criminally investigate or prosecute any alcohol or drug abuse patient.[facility] the event this information is protected by the Federal Confidentiality of Alcohol and Drug Abuse Patient Records regulations: The Federal rules restrict any use of the information to criminally investigate or prosecute any alcohol or drug abuse patient.[facility] the event this information is protected by the Federal Confidentiality of Alcohol and Drug Abuse Patient Records regulations: The Federal rules restrict any use of the information to criminally investigate or prosecute any alcohol or drug abuse patient.[facility] the event this information is protected by the Federal Confidentiality of Alcohol and Drug Abuse Patient Records regulations: The Federal rules restrict any use of the information to criminally investigate or prosecute any alcohol or drug abuse patient.[facility] the event this information is protected by the Federal Confidentiality of Alcohol and Drug Abuse Patient Records regulations: The Federal rules restrict any use of the information to criminally investigate or prosecute any alcohol or drug abuse patient.[facility] Hospital[facility] the event this information is protected by the Federal Confidentiality of Alcohol and Drug Abuse Patient Records regulations: The Federal rules restrict any use of the information to criminally investigate or prosecute any alcohol or drug abuse patient.[facility] the event this information is protected by the Federal Confidentiality of Alcohol and Drug Abuse Patient Records regulations: The Federal rules restrict any use of the information to criminally investigate or prosecute any alcohol or drug abuse patient.[facility] the event this information is protected by the Federal Confidentiality of Alcohol and Drug Abuse Patient Records regulations: The Federal rules restrict any use of the information to criminally investigate or prosecute any alcohol or drug abuse patient.[facility] the event this information is protected by the Federal Confidentiality of Alcohol and Drug Abuse Patient Records regulations: The Federal rules restrict any use of the information to criminally investigate or prosecute any alcohol or drug abuse patient.[facility] Hospital[facility] the event this information is protected by the Federal Confidentiality of Alcohol and Drug Abuse Patient Records regulations: The Federal rules restrict any use of the information to criminally investigate or prosecute any alcohol or drug abuse patient.[facility] Hospital[facility] the event this information is protected by the Federal Confidentiality of Alcohol and Drug Abuse Patient Records regulations: The Federal rules restrict any use of the information to criminally investigate or prosecute any alcohol or drug abuse patient.[facility] the event this information is protected by the Federal Confidentiality of Alcohol and Drug Abuse Patient Records regulations: The Federal rules restrict any use of the information to criminally investigate or prosecute any alcohol or drug abuse patient.[facility] Reason for Visit (unrecogniz ed section and content) Reason Comments Ear Pain Pt presented bilater al ear pain rated 1, x2 wks decreased hearing Reason Comments OT EVAL Specialty Diagnoses / Procedures Referred By Contac t Referred To Contact Occupational Therapy / OCCUPATIONAL THERAPY Diagnoses post op OT [facility] Procedures NEW Laureen Mann MD [address] [place] [address] Maki Casas, OTR/L [address] [place] [address] Referral ID Status Reason Start Date Expiration Date Visits Requested Visits Authorized [id number] Waiting for Response Patient Cleared - Admin/Chair man/Directo r advise to proceed 2 11/27/2022 18 18 Reason Comments Occupational Therapy Specialty Diagnoses / Procedures Referred By Contac t Referred To Contact Occupational Therapy / OCCUPATIONAL THERAPY Diagnoses post op OT [facility] Procedures NEW Laureen Schafer OT, MD [address] [place] [address] Maki Casas, OTR/L [address] [place] [address] Reason Comments New Reason Comments Follow Up Established Patient Post Op Specialty Diagnoses / Procedures Referred By Contac t Referred To Contact Orthopedics / ORTHOPAEDIC SURGERY Diagnoses [facility] DOI 08/18/22 post op left small finger sx 08/25/22 Procedures REFERRAL TO [facility] POST OP Ed, [facility] Laureen Lombardo MD [address] [place] [address] Referral ID Status Reason Start Date Expiration Date Visits Requested Visits Authorized [id number] Waiting for Response Patient Cleared - Admin/Chair man/Directo r advise to proceed 2 11/04/2022 2 2 Reason Comments Established Patient Reason Comments Established Patient Specialty Diagnoses / Procedures Referred By Contac t Referred To Contact Orthopedics / ORTHOPAEDIC SURGERY Diagnoses [facility] DOI 08/18/22 post op left small finger sx 08/25/22 Procedures REFERRAL TO [facility] POST OP Ed, [facility] Laureen Lombardo MD [address] [place] [address] Referral ID Status Reason Start Date Expiration Date Visits Requested Visits Authorized [id number] Outside [facility] Financial Clearance Not Required 09/05/2022 11/07/2022 2 2 Reason Comments Established Patient Post Op Specialty Diagnoses / Procedures Referred By Contac t Referred To Contact Orthopedics / ORTHOPAEDIC SURGERY Diagnoses [facility] DOI 08/18/22 post op left small finger sx 12/13/22 Procedures REFERRAL TO [facility] POST OP Laureen Lombardo MD [address] [place] [address] Laureen Lombardo MD [address] [place] [address] Referral ID Status Reason Start Date Expiration Date V isits Requested Visits Authorized [id number] Closed Patient Cleared - Admin/Chairm an/Director advise to proceed 12/19/2022 02/17/2023 1 1 Reason Comments Established Patient Still having pain an d swelling, ROM limited. No falls or injuries. Follow Up Still having pain an d swelling, ROM limited. No falls or injuries. Pain Still having pain an d swelling, ROM limited. No falls or injuries. Swelling Still having pain an d swelling, ROM limited. No falls or injuries. Specialty Diagnoses / Procedures Referred By Contac t Referred To Contact Orthopedics / ORTHOPAEDIC SURGERY Diagnoses [facility] DOI 08/18/22 post op left small finger sx 12/13/22 Procedures REFERRAL TO [facility] POST OP Laureen Lombardo MD [address] [place] [address] Laureen Lombardo MD [address] [place] [address] Reason Comments Post Op Specialty Diagnoses / Procedures Referred By Contac t Referred To Contact Orthopedics / ORTHOPAEDIC SURGERY Diagnoses follow up SX 05/23/23 Left small finger Xray before Procedures POST OP Laureen Lombardo MD [address] [address] Laureen Lombardo MD [address] [place] [address] Referral ID Status Reason Start Date Expiration Date Visits Re quested Visits Authorized [id number] Closed 06/25/2023 06/25/2023 1 1 Reason Comments left thumb infection Possible left thumb infection x 2 days Reason Comments Cough X2 weeks, wheezing Reason Comments Derm Problem L hand thumb infecti on x2 days Care Teams (unrecognized sec tion and content) Therapeutic Strategy Lead Relationship Specialty Start Date End Date Donny, Hialeah S [address] [place], [place] [id number] [phone] Physician Cardiology 01/03/19 Therapeutic Strategy Lead Relationship Specialty Start Date End Date Donny, Hialeah S [address] [place], [place] [phone] Physician Cardiology 01/03/19 Therapeutic Strategy Lead Relationship Specialty Start Date End Date Donny, Hialeah S [address] [place] [address] Physician Cardiology 01/03/19 Therapeutic Strategy Lead Relationship Specialty Start Date End Date Donny, Jimbo S [address] [place] [address] Physician Cardiology 01/03/19 Therapeutic Strategy Lead Relationship Specialty Start Date End Date Donny, Hialeah S [address] [place] [address] Physician Cardiology 01/03/19 Therapeutic Strategy Lead Relationship Specialty Start Date End Date Donny, Hialeah S [address] [place] [address] Physician Cardiology 01/03/19 Therapeutic Strategy Lead Relationship Specialty Start Date End Date Donny, Jimbo S [address] [place] [address] Physician Cardiology 01/03/19 Therapeutic Strategy Lead Relationship Specialty Start Date End Date Donny, Jimbo S [address] [place] [address] Physician Cardiology 01/03/19 Therapeutic Strategy Lead Relationship Specialty Start Date End Date Donny, Hialeah S [address] [place] [address] Physician Cardiology 01/03/19 Therapeutic Strategy Lead Relationship Specialty Start Date End Date Donny, Jimbo S [address] [place] [address] Physician Cardiology 01/03/19 Therapeutic Strategy Lead Relationship Specialty Start Date End Date Donny, Jimbo S [address] [place] [address] Physician Cardiology 01/03/19 Therapeutic Strategy Lead Relationship Specialty Start Date End Date DonnyKanHialeah S [address] [place] [address] (Fax) Physician Cardiology 01/03/19 Team Status: Active Member Role Status Dates Ramón Ramos BIOMETRICS EXPERIMENTALIST, BIOMETRICS EXPERIMENTALIST-C Family Provider Active Dr. Sudhakar Eng MD Primary Care Provider Activ e Team Status: Inactive Member Role Status Dates Dr. Sudhakar Eng MD Primary Care Provider Activ MUNIRA Medel Attending Provider, Referring Provide r Active Therapeutic Strategy Lead Relationship Specialty Start Date End Date DonnyKan dixonril S [address] [facility] [address] [place] [address] (Fax) Physician Cardiology 01/03/19 Therapeutic Strategy Lead Relationship Specialty Start Date End Date DonnyKanJimbo S [address] [address] (Fax) Physician Cardiology 01/03/19 Therapeutic Strategy Lead Relationship Specialty Start Date End Date Jimbo Hines MD [address] [address] (Fax) Physician Cardiology 01/03/19 Therapeutic Strategy Lead Relationship Specialty Start Date End Date Jimbo Hines MD [address] [address] Physician Cardiology 01/03/19 Therapeutic Strategy Lead Relationship Specialty Start Date End Date Jimbo Hines MD [address] [address] (Fax) Physician Cardiology 01/03/19 Therapeutic Strategy Lead Relationship Specialty Start Date End Date Michela Eng MD [address] [place] [phone] PCP - General Family Medicine 07/11/24 Jimbo Hines MD [address] [place] [address] Physician Cardiology 01/03/19 Therapeutic Strategy Lead Relationship Specialty Start Date End Date Michela Eng MD [address] [place] [address] PCP - General Family Medicine 07/11/24 Jimbo Hines MD [address] [place] [address] Physician Cardiology 01/03/19 (unrecognized sect ion and content) No Status Records FoundNo Status Records FoundNo Status Records FoundNo Status Records Found INFORMATION SOURCE (unrecogn ized section and content) DATE CREATED AUTHOR 07/25/2023 [facility] DATE CREATED AUTHOR AUTHOR'S ORGANIZ ATION 08/07/2023 [facility] DATE CREATED AUTHOR AUTHOR'S ORGANIZ ATION 01/14/2024 [facility] DATE CREATED AUTHOR AUTHOR'S ORGANIZ ATION 11/08/2024 [facility] FOR RECORDS PERTAINING TO PATIENTS WHO ARE OR HAVE BEEN ENROLLED IN A CHEMICAL DEPENDENCY/SUBSTANCEABUSE PROGRAM, SOME INFORMATION MAY BE OMITTED. This clinical summary was aggregated from multiple sources. Caution should be exercised in using it in the provision of clinical care. This summary normalizes information from multiple sources, and as a consequence, information in this document may materially change the coding, format and clinical context of patient data. In addition, data may be omitted in some cases. CLINICAL DECISIONS SHOULD BE BASED ON THE PRIMARY CLINICAL RECORDS. [employer] provides no warranty or guarantee of the accuracy or completeness of information in this document.
[2025-04-03 10:28] LABS: Hematocrit 42.7 % (40-54); Hemoglobin 14.9 g/dL (13.0-16.5); Immature Granulocytes Count 0.020 X10^3/uL (0.0-0.0); Mean Corp Hgb Conc 34.9 g/dL (32-36); Mean Corpuscular Volume 80.1 fL (80-94); Mean Platelet Vol. 9.4 fl (6.2-12.0); NRBC Flagged by Analyzer 0 % (0-5); Platelet Count 215 K/mm3 (150-450); RBC Distribution Width CV 12.2 % (11.6-14.6); RBC Distribution Width SD 35.1 fl (35.1-43.9); Red Blood Count 5.33 M/mm3 (4.6-6.2); White Blood Count 6.2 K/mm3 (4.4-11.0)
[2025-04-03 11:40] LABS: AST(SGOT) 29 U/L (<=37); Alanine Aminotransfer ALT/SGPT 68 U/L (<=46); Albumin, Serum 4.7 g/dL (3.5-5.0); Alkaline Phosphatase 84 U/L (40-129); Anion Gap 13 (5-15); BUN 17 mg/dL (4-19); BUN/Creat Ratio 17.7 RATIO (10-20); Calcium,Total 9.7 mg/dL (7.6-11.0); Carbon Dioxide 23.7 mmol/L (21.0-32.0); Chloride 103 mmol/L (98-108); Globulin 2.7 g/dL (2.2-4.2); Glucose 95 mg/dL (70-99); Potassium 3.9 mmol/L (3.3-5.1)
[2025-04-07 07:08] LABS: Immunoglobulin A 78 mg/dL (90-386)
[2025-04-07 10:06] LABS: Hepatitis B Surface Antigen Nonreactive (Nonreactive); Hepatitis C Antibody Nonreactive (Nonreactive)
== END | disposition home or self-care (01) ==
LOC: MFPLAB 08:33
PROVIDERS: PCP Family Medicine; Visit Provider Family Medicine
DX: R79.89 Other specified abnormal findings of blood chemistry (principal); R53.83 Other fatigue; R14.0 Abdominal distension (gaseous)
CPT/HCPCS: 36415; 80053; 82784; 83516; 84439; 84443; 85025; 86255; 86803; 87340

== ENCOUNTER → 2025-04-08 | Outpatient (CLI) | payer OTHER, SELFPAY ==
[2025-04-08 11:01] LABS: Hepatitis B Surface Antigen Nonreactive (Nonreactive); Hepatitis C Antibody Nonreactive (Nonreactive)
== END | disposition home or self-care (01) ==
LOC: MTLAB 07:53
PROVIDERS: PCP Family Medicine; Referring Provider Family Medicine; Visit Provider Family Medicine
DX: R79.89 Other specified abnormal findings of blood chemistry (principal)
CPT/HCPCS: 36415; 86706; 86803; 87340